=== PATIENT | male | born 1930 ===

== ENCOUNTER 2017-11-20 19:24 | Inpatient (IN) | payer MEDICARE, MEDICAID ==
[2017-11-20 20:15] LABS: VENOUS BLOOD GAS BASE EXCESS 1.9 mmol/L (0.0-2.0); VENOUS BLOOD GAS PCO2 50 mmHg (40-60); VENOUS BLOOD GAS PO2 22 mm/Hg (30-55); VENOUS BLOOD PH 7.36 (7.32-7.43)
[2017-11-20 20:21] LABS: BASO % 0.2 % (0.0-2.0); EOS % 0.1 % (0.0-4.0); HEMOGLOBIN 11.2 g/dL (12.0-18.0); LYMPH # 0.2 K/uL (1.0-4.3); LYMPH % 1.8 % (20.0-40.0); MEAN CORPUSCULAR HEMOGLOBIN 31.9 pg (27.0-31.0); MEAN CORPUSCULAR HGB CONC 33.9 g/dL (33.0-37.0); MEAN PLATELET VOLUME 6.9 fl (7.2-11.7); MONO # 0.5 K/uL (0.0-0.8); NEUT # 11.4 K/uL (1.8-7.0); NEUT % 93.9 % (50.0-75.0); RBC 3.53 Mil/uL (4.40-5.90); RED CELL DISTRIBUTION WIDTH 14.4 % (11.5-14.5)
[2017-11-20 20:29] LABS: WHITE BLOOD COUNT 12.2 K/uL (4.8-10.8)
[2017-11-20 20:30] LABS: MEAN CELL VOLUME 94.1 fl (80.0-94.0); PLATELET COUNT 259 K/uL (130-400)
[2017-11-20 20:31] LABS: ALBUMIN 3.6 g/dL (3.5-5.0); ALT/SGPT 48 U/L (21-72); AST/SGOT 49 U/L (17-59); BLOOD UREA NITROGEN 23 mg/dl (9-20); CALCIUM 9.4 mg/dL (8.4-10.2); GFR AFRICAN-AMERICAN > 60; GFR NON-AFRICAN AMERICAN > 60
[2017-11-20 20:38] LABS: INR 1.1 (0.9-1.2); PARTIAL THROMBOPLASTIN TIME 26.5 Seconds (25.6-37.1); PROTHROMBIN TIME 12.5 Seconds (9.8-13.1)
[2017-11-20 20:42] LABS: B-TYPE NATRIURETIC PEPTIDE 2630 pg/ml (0-900)
[2017-11-20] MEDS ORDERED: Sodium Chloride 0.9% 500 ML IV STA (20:54)
--- NOTE | 2017-11-20 21:17 | ED PDOC ---
HPI: CCC, URI, Sore Throat Time Seen by Provider: 11/20/17 19:28 Chief Complaint (Nursing): Fever Chief Complaint (Provider): Fever, Cough History Per: Family History/Exam Limitations: clinical condition (severe dementia) Onset/Duration Of Symptoms: Other (November 06) Current Symptoms Are (Timing): Still Present Additional History Per: EMS Additional Complaint(s): Kyle is an 87 y/o male who was brought to the ED by his family via EMS for evaluation of a fever and cough. Family states the cough started November 06 and at that time patient presented to [facility] where he was diagnosed with bronchitis and discharged on antibiotics. Since then, he has not gotten better, so he presented to [facility] again and was discharged. Today, he developed a fever. The cough is non-productive but family reports he is very congested. They deny vomiting or diarrhea. Family also reports that patient has had nothing to eat yesterday or today. PMD: Nilay Mackey Past Medical History Reviewed: Historical Data, Nursing Documentation, Vital Signs Vital Signs: Last Vital Signs Temp 98.2 F 11/21/17 11:51 Pulse 77 11/21/17 11:51 Resp 20 11/21/17 11:51 BP 153/80 H 11/21/17 11:51 Pulse Ox 97 11/21/17 11:51 - Medical History PMH: CAD, CHF, Dementia, Depression, Diabetes (Type II), HTN, Hypercholesterolemia Denies: HIV, Chronic Kidney Disease Other PMH: Bed bound for the past 5 years - Surgical History Surgical History: Pacemaker - Family History Family History: States: Unknown Family Hx - Immunization History Hx Tetanus Toxoid Vaccination: No Hx Influenza Vaccination: No Hx Pneumococcal Vaccination: No - Home Medications Home Medications: Ambulatory Orders Medication Instructions Recorded Cilostazol [Pletal] 50 mg PO BID 06/04/15 Clopidogrel [Plavix] 75 mg PO DAILY 06/04/15 Glipizide [Glucotrol] 5 mg PO DAILY 06/04/15 Losartan Potassium 50 mg PO BID 06/04/15 Sitagliptin Phosphate [Januvia] 50 mg PO DAILY 06/04/15 amLODIPine [Norvasc] 2.5 mg PO DAILY 11/06/17 Benzonatate 100 mg PO BID 11/15/17 Rosuvastatin Calcium [Crestor] 10 mg PO HS 11/15/17 rOPINIRole [Requip] 0.25 mg PO DAILY 11/15/17 Olopatadine HCl [Pazeo] 1 drop TOP DAILY 11/20/17 - Allergies Allergies/Adverse Reactions: Allergies Allergy/AdvReac Type Severity Reaction Status Date / Time No Known Allergies Allergy Verified 11/15/17 20:02 Review of Systems ROS Statement: Except As Marked, All Systems Reviewed And Found Negative Constitutional: Positive for: Fever, Other (loss of appetite) ENT: Positive for: Nose Congestion Respiratory: Positive for: Cough Gastrointestinal: Negative for: Vomiting, Diarrhea Physical Exam - Reviewed Nursing Documentation Reviewed: Yes Vital Signs Reviewed: Yes - Physical Exam Appears: Negative for: Well (chronically ill, chachectic) Skin: Negative for: Normal Color (b/l ecchymosis to upper extremities) Eye Exam: Positive for: Other (conjunctival injection, squeezes both eyes shut on attempts to examine) ENT: Positive for: Pharynx Is (clear), Other (tachy mucous membranes) Neck: Positive for: Painless ROM, Supple Cardiovascular/Chest: Positive for: Regular Rate, Rhythm. Negative for: Murmur Respiratory: Positive for: Rhonchi. Negative for: Rales, Respiratory Distress Gastrointestinal/Abdominal: Positive for: Soft. Negative for: Tenderness Back: Positive for: Normal Inspection. Negative for: Decreased ROM Extremity: Positive for: Other (lower legs with chronic ulcerations, very poor muscle bulk, contractures, cool to touch, changes consistent with severe PAD). Negative for: Pedal Edema Lymphatic: Negative for: Adenopathy Neurologic/Psych: Positive for: Other (obtunded, only moans to stimuli). Negative for: Oriented, Motor/Sensory Deficits (no gross motor deficits) Comments: Left Upper Extremity: (+) pitting edema of forearm up to proximal elbow Lower Extremities: Very poor muscle bulk with chronic ulcerations b/l; contractions to b/l feet, b/l ankles; b/l feet cool to touch - Laboratory Results Result Diagrams: 11/21/17 04:25 11/21/17 04:25 - ECG O2 Sat by Pulse Oximetry: 95 (RA) Pulse Ox Interpretation: Normal Medical Decision Making Medical Decision Making: Time: 19:41 Initial Impression: Cough and fever Differentials include bronchitis, viral illness, pneumonia, PE Initial Plan: --Blood Type & Screen --VBG --EKG --BNP --CMP --Magnesium --Phosphorous --Troponin --CBC --PTT --Prothrombin Time --Blood Glucose --Blood Culture --Urine Culture --Urinalysis --Flu Swab --Tylenol Accession No. : [id number] Patient Name / ID : TRISTA COBIAN / [id number] Exam Date : 11/20/2017 21:29:07 ( Approved ) Study Comment : Sex / Age : M / 87Y Creator : Inna Forte Dictator : Professor Of Religious Studies : Broadcast Chief Engineer : Inna Forte Approver2 : Report Date : 11/20/2017 23:37:00 My Comment : [facility] Division of Radiology [address] [place] [address] Tel. no. Patient Name: KYLE WESTON Pt. Address: [address] [place] [address] Rec #: [id number] [place] [address]: Robert MAYEN, Desiree Cardoso Pt CELL Order Location: [facility] : 1930 Male Age: 87 Order #: [id number] Reason for exam: sob CT Scan ANGIO CHEST PE PROTOCOL Exam Date: 11/20/17 This imaging exam was performed at [facility] EXAM: CT Angiography Chest With Intravenous Contrast EXAM DATE/TIME: 11/20/2017 9:12 PM CLINICAL HISTORY: 87 years old, male; Signs and symptoms; Shortness of breath; Prior surgery; Surgery date: 6+ months; Additional info: SOB TECHNIQUE: Axial computed tomographic angiography images of the chest with intravenous contrast using pulmonary embolism protocol. All CT scans at this facility use one or more dose reduction techniques, viz.: automated exposure control; ma/kV adjustment per patient size (including targeted exams where dose is matched to indication; i.e. head); or iterative reconstruction technique. MIP reconstructed images were created and reviewed. Coronal and sagittal reformatted images were created and reviewed. CONTRAST: 60 mL of [id number] administered intravenously. COMPARISON: CR - CHEST PORTABLE 2017-11-20 20:07 FINDINGS: Left-sided dual-lead pacemaker. Left thyroid cyst. No pulmonary embolism. The ascending aorta measures 3.7 cm in diameter and the descending aorta measures 2.7 cm in diameter. No aortic dissection. No pleural or pericardial effussions. There are nodular infiltrates with intermixed consolidation in the lower lungs bilaterally greater on the right. Inflammatory, infectious, and neoplastic etiologies would all be possible. Small mediastinal lymph nodes. Dense calcifications throughout the gallbladder some of which represent gallstones however concurrent calcified bladder wall cannot be excluded. There is bilateral perinephric stranding. There is a 1 cm exophytic right renal cyst. There is a probable subcentimeter exophytic left renal cyst too small to characterize. IMPRESSION: Nodular infiltrates with consolidation in the lower lungs, greater on the right. Inflammatory, infectious, and neoplastic etiologies would all be possible. Dictated By: Inna Forte MD Dictated Date/Time: 11/20/172336 Signed By: Inna Forte MD Date Signed: [id number] Transcribed By: KIESHA Transcribe Date/Time : 11/20/172336 [id number] Novoa for hospitalization for working diagnosis of pneumonia, failed outpatient treatment. AZIRA pt's family findings and plan of care. Scribe Attestation: Documented by Joshua Spears, acting as a scribe for Dr Robert MD Provider Scribe Attestation: All medical record entries made by the Scribe were at my direction and personally dictated by me. I have reviewed the chart and agree that the record accurately reflects my personal performance of the history, physical exam, medical decision making, and the department course for this patient. I have also personally directed, reviewed, and agree with the discharge instructions and disposition. Disposition - Clinical Impression Clinical Impression: Pneumonia Discussed With : Robbi Novoa Doctor Will See Patient In The: ED Counseled Patient/Family Regarding: Studies Performed, Diagnosis - Disposition Disposition Time: 23:30 Condition: GUARDED - Pt Status Changed To: Hospital Disposition Of: Inpatient - Admit Certification Admit to Inpatient:: After my assessment, the patient will require hospitalization for at least two midnights. This is because of the severity of symptoms shown, intensity of services needed, and/or the medical risk in this patient being treated as an outpatient. - POA Present On Arrival: None
[2017-11-20] MEDS ORDERED: Azithromycin 500 MG in Sodium Chloride 0.9% 250 ML IVPB ONE (21:30)
[2017-11-20] MEDS ORDERED: Iodixanol 320 MG/ML 100 ML BOTTLE IV ONE (21:46)
[2017-11-20] MEDS ORDERED: Sodium Chloride 0.9% 100 ML ONE (21:47)
[2017-11-20 22:12] LABS: EOSINOPHIL 1 % (0-7); LYMPHOCYTE 1 % (20-50); MONOCYTE 4 % (0-10); NEUTROPHIL 94 % (42-75); TOTAL CELLS COUNTED 100
[2017-11-20 22:14] LABS: HYPOCHROMIC SLIGHT; TOXIC GRANULATION PRESENT
[2017-11-20 22:15] LABS: PLATELET ESTIMATE NORMAL (NORMAL)
--- NOTE | 2017-11-20 23:37 | CT ---
EXAM: CT Angiography Chest With Intravenous Contrast EXAM DATE/TIME: 11/20/2017 9:12 PM CLINICAL HISTORY: 87 years old, male; Signs and symptoms; Shortness of breath; Prior surgery; Surgery date: 6+ months; Additional info: SOB TECHNIQUE: Axial computed tomographic angiography images of the chest with intravenous contrast using pulmonary embolism protocol. All CT scans at this facility use one or more dose reduction techniques, viz.: automated exposure control; ma/kV adjustment per patient size (including targeted exams where dose is matched to indication; i.e. head); or iterative reconstruction technique. MIP reconstructed images were created and reviewed. Coronal and sagittal reformatted images were created and reviewed. CONTRAST: 60 mL of [id number] administered intravenously. COMPARISON: CR - CHEST PORTABLE 2017-11-20 20:07 FINDINGS: Left-sided dual-lead pacemaker. Left thyroid cyst. No pulmonary embolism. The ascending aorta measures 3.7 cm in diameter and the descending aorta measures 2.7 cm in diameter. No aortic dissection. No pleural or pericardial effussions. There are nodular infiltrates with intermixed consolidation in the lower lungs bilaterally greater on the right. Inflammatory, infectious, and neoplastic etiologies would all be possible. Small mediastinal lymph nodes. Dense calcifications throughout the gallbladder some of which represent gallstones however concurrent calcified bladder wall cannot be excluded. There is bilateral perinephric stranding. There is a 1 cm exophytic right renal cyst. There is a probable subcentimeter exophytic left renal cyst too small to characterize. IMPRESSION: Nodular infiltrates with consolidation in the lower lungs, greater on the right. Inflammatory, infectious, and neoplastic etiologies would all be possible.
[2017-11-20] MEDS ORDERED: cefTRIAXone (Rocephin) 1 gm Inj ONE (23:43)
--- NOTE | 2017-11-20 23:47 | CP.PCM.HP ---
History of Present Illness - History of Present Illness History of Present Illness: CC: Weakness, fever HPI: 87 y/o male with multiple medical conditions including DM2, CAD, CHF who was brought in for fever/RTI symptoms. Apparently cough started on 11/06, and he has gone to [facility] ED where he was seen and dx'ed with bronchitis and given abx. He did not get better, so presented to [facility] again, and was again discharged without any new intervention. Today, per family, he developed fever and worsening congestion, though cough did not become productive. Per family, no n/v/d. Patient does have more anorexia and weakness over last few days. Patient himself provides no history, all history is from family and chart. ROS: Limited review, patient not very verbal MHx: DM2, CAD, CHF, HLD, depression, dementia SHx: s/p PPM Allergies: NKDA Medications: Per med rec Family Hx: No relevant findings Social Hx: Lives with family, no tobacco, no EtOH Surrogate: family members, contact info in chart Present on Admission - Present on Admission Any Indicators Present on Admission: No Past Patient History - Infectious Disease Hx of Infectious Diseases: None - Past Medical History & Family History Past Medical History?: Yes - Past Social History Smoking Status: Former Smoker - CARDIAC Hx Congestive Heart Failure: Yes Hx Hypercholesterolemia: Yes Hx Hypertension: Yes Hx Pacemaker: Yes - PULMONARY Hx Respiratory Disorders: No - NEUROLOGICAL Hx Dementia: Yes - HEENT Hx HEENT Problems: Yes - RENAL Hx Chronic Kidney Disease: No - ENDOCRINE/METABOLIC Hx Endocrine Disorders: Yes Hx Diabetes Mellitus Type 2: Yes - HEMATOLOGICAL/ONCOLOGICAL Hx Human Immunodeficiency Virus (HIV): No - INTEGUMENTARY Hx Dermatological Problems: No Other/Comment: dematitis - MUSCULOSKELETAL/RHEUMATOLOGICAL Hx Falls: Yes Other/Comment: non amb-W/C bound at home x 2yrs - GASTROINTESTINAL Hx Constipation: Yes - GENITOURINARY/GYNECOLOGICAL Hx Genitourinary Disorders: No Hx Incontinence: Yes - PSYCHIATRIC Hx Depression: Yes - SURGICAL HISTORY Hx Surgeries: Yes Other/Comment: Pacemaker insertion - ANESTHESIA Hx Anesthesia: Yes Hx Anesthesia Reactions: No Hx Malignant Hyperthermia: No Meds Allergies/Adverse Reactions: Allergies Allergy/AdvReac Type Severity Reaction Status Date / Time No Known Allergies Allergy Verified 11/15/17 20:02 Physical Exam - Constitutional Additional comments: ill appearing - Head Exam Head Exam: ATRAUMATIC, NORMOCEPHALIC - Eye Exam Eye Exam: EOMI, PERRL - ENT Exam ENT Exam: Mucous Membranes Dry - Neck Exam Neck exam: Positive for: Full Rom - Respiratory Exam Respiratory Exam: Decreased Breath Sounds, Rhonchi - Cardiovascular Exam Cardiovascular Exam: REGULAR RHYTHM, +S1, +S2 - GI/Abdominal Exam GI & Abdominal Exam: Normal Bowel Sounds, Soft - Extremities Exam Extremities exam: Positive for: full ROM, normal inspection - Neurological Exam Additional comments: awake, answers some questions - Skin Skin Exam: Dry, Warm Results - Vital Signs Recent Vital Signs: Last Vital Signs Temp 101 F H 11/20/17 20:47 Pulse 95 H 11/20/17 21:43 Resp 20 11/20/17 21:43 BP 122/85 11/20/17 21:43 Pulse Ox 98 11/20/17 21:43 - Labs Result Diagrams: 11/20/17 20:00 11/20/17 20:00 Labs: Laboratory Results - last 24 hr 11/20/17 11/20/17 11/20/17 19:42 20:00 20:00 WBC 12.2 H D RBC 3.53 L Hgb 11.2 L Hct 33.2 L MCV 94.1 H D MCH 31.9 H MCHC 33.9 RDW 14.4 Plt Count 259 D MPV 6.9 L Neut % (Auto) 93.9 H Lymph % (Auto) 1.8 L [place] % (Auto) 4.0 Eos % (Auto) 0.1 Baso % (Auto) 0.2 Neut # (Auto) 11.4 H Lymph # (Auto) 0.2 L [place] # (Auto) 0.5 Eos # (Auto) 0.0 Baso # (Auto) 0.0 Neutrophils % (Manual) 94 H Lymphocytes % (Manual) 1 L Monocytes % (Manual) 4 Eosinophils % (Manual) 1 Toxic Granulation Present Platelet Estimate Normal Hypochromasia (manual) Slight Macrocytosis (manual) Slight PT INR APTT pO2 VBG pH VBG pCO2 VBG HCO3 VBG Total CO2 VBG O2 Sat (Calc) VBG Base Excess VBG Potassium Glucose Lactate FiO2 Sodium 147 Potassium 4.8 Chloride 106 Carbon Dioxide 24 Anion Gap 22 H BUN 23 H Creatinine 1.1 Est GFR ( Amer) > 60 Est GFR (Non-Af Amer) > 60 POC Glucose (mg/dL) 219 H Random Glucose 218 H Calcium 9.4 Phosphorus 3.0 Magnesium 2.1 Total Bilirubin 0.8 AST 49 ALT 48 Alkaline Phosphatase 107 Troponin I 0.0460 NT-Pro-B Natriuret Pep 2630 H Total Protein 7.1 Albumin 3.6 Globulin 3.6 Albumin/Globulin Ratio 1.0 Venous Blood Potassium Influenza Typ A,B (EIA) Blood Type Antibody Screen BBK History Checked 11/20/17 11/20/17 11/20/17 20:00 20:00 20:09 WBC RBC Hgb Hct MCV MCH MCHC RDW Plt Count MPV Neut % (Auto) Lymph % (Auto) [place] % (Auto) Eos % (Auto) Baso % (Auto) Neut # (Auto) Lymph # (Auto) [place] # (Auto) Eos # (Auto) Baso # (Auto) Neutrophils % (Manual) Lymphocytes % (Manual) Monocytes % (Manual) Eosinophils % (Manual) Toxic Granulation Platelet Estimate Hypochromasia (manual) Macrocytosis (manual) PT 12.5 INR 1.1 APTT 26.5 pO2 22 L VBG pH 7.36 VBG pCO2 50 VBG HCO3 24.7 VBG Total CO2 29.7 H VBG O2 Sat (Calc) 20.9 L VBG Base Excess 1.9 VBG Potassium 4.8 Glucose 238 H Lactate 1.9 FiO2 21.0 Sodium 142.0 Potassium Chloride 106.0 Carbon Dioxide Anion Gap BUN Creatinine Est GFR ( Amer) Est GFR (Non-Af Amer) POC Glucose (mg/dL) Random Glucose Calcium Phosphorus Magnesium Total Bilirubin AST ALT Alkaline Phosphatase Troponin I NT-Pro-B Natriuret Pep Total Protein Albumin Globulin Albumin/Globulin Ratio Venous Blood Potassium 4.8 Influenza Typ A,B (EIA) Blood Type A POSITIVE Antibody Screen Negative BBK History Checked No verified bt 11/20/17 20:20 WBC RBC Hgb Hct MCV MCH MCHC RDW Plt Count MPV Neut % (Auto) Lymph % (Auto) [place] % (Auto) Eos % (Auto) Baso % (Auto) Neut # (Auto) Lymph # (Auto) [place] # (Auto) Eos # (Auto) Baso # (Auto) Neutrophils % (Manual) Lymphocytes % (Manual) Monocytes % (Manual) Eosinophils % (Manual) Toxic Granulation Platelet Estimate Hypochromasia (manual) Macrocytosis (manual) PT INR APTT pO2 VBG pH VBG pCO2 VBG HCO3 VBG Total CO2 VBG O2 Sat (Calc) VBG Base Excess VBG Potassium Glucose Lactate FiO2 Sodium Potassium Chloride Carbon Dioxide Anion Gap BUN Creatinine Est GFR ( Amer) Est GFR (Non-Af Amer) POC Glucose (mg/dL) Random Glucose Calcium Phosphorus Magnesium Total Bilirubin AST ALT Alkaline Phosphatase Troponin I NT-Pro-B Natriuret Pep Total Protein Albumin Globulin Albumin/Globulin Ratio Venous Blood Potassium Influenza Typ A,B (EIA) Negative for flu a/b Blood Type Antibody Screen BBK History Checked - Imaging and Cardiology CT scan - chest Status: Image reviewed by me, Report reviewed by me Assessment & Plan (1) CAP (community acquired pneumonia) Assessment and Plan: 87 y/o male with likely CAP and sepsis, coming with with c/o weakness, cough, fever. 1) CAP/Sepsis/Weakness -Admit tele -Continue ceftriaxone/azithromycin IV -Duonebs -Tylenol for fever -Conservative IVF as necessary only, given CHF history 2) DM2 -DM2 diet -ACHS accucheck -SSI -Resume PO medications when eating normally again 3) DVT PPx -- SQ Lovenox Status: Acute (2) Sepsis Status: Acute (3) Weakness Status: Acute (4) DM2 (diabetes mellitus, type 2) Status: Acute (5) DVT prophylaxis Status: Acute
[2017-11-20] MEDS ORDERED: Albuterol-Ipratrop 3 mg / 0.5 (3 ml) UD INH PRN (23:51)
[2017-11-21 06:22] LABS: BLOOD UREA NITROGEN 21 mg/dl (9-20); CALCIUM 8.7 mg/dL (8.4-10.2); GFR AFRICAN-AMERICAN > 60; GFR NON-AFRICAN AMERICAN > 60
[2017-11-21 07:31] LABS: MEAN CELL VOLUME 95.8 fl (80.0-94.0); MEAN CORPUSCULAR HEMOGLOBIN 33.6 pg (27.0-31.0); MEAN CORPUSCULAR HGB CONC 35.1 g/dL (33.0-37.0); RBC 2.98 Mil/uL (4.40-5.90); RED CELL DISTRIBUTION WIDTH 14.2 % (11.5-14.5); WHITE BLOOD COUNT 10.6 K/uL (4.8-10.8)
--- NOTE | 2017-11-21 07:59 | RAD ---
HISTORY: sob COMPARISON: Portable chest 08/10/2015. FINDINGS: LUNGS: No active pulmonary disease. PLEURA: No significant pleural effusion identified, no pneumothorax apparent. CARDIOVASCULAR: Cardiac size is normal and there is no pulmonary vascular derangement identified. Permanent cardiac pacemaker again identified. OSSEOUS STRUCTURES: No significant abnormalities. VISUALIZED UPPER ABDOMEN: Normal. OTHER FINDINGS: None. IMPRESSION: No interval acute cardiopulmonary disease appreciated. Permanent cardiac pacemaker again identified in situ.
[2017-11-21 08:49] LABS: SQUAMOUS EPITHIAL 3 /hpf (0-5); URINE BACTERIA RARE (<OCC); URINE BILIRUBIN NEGATIVE (NEGATIVE); URINE BLOOD NEGATIVE (NEGATIVE); URINE CLARITY CLOUDY (Clear); URINE COLOR YELLOW (YELLOW); URINE GLUCOSE (UA) NEG (Normal); URINE LEUKOCYTE ESTERASE NEG Leu/uL (Negative); URINE PROTEIN 100 mg/dL (NEGATIVE)
[2017-11-21] MEDS ORDERED: Azithromycin 500 MG in Sodium Chloride 0.9% 250 ML IVPB SCH (09:00)
[2017-11-21] MEDS: Insulin Lispro (humaLOG) 100 Units/ml Inj SC SCH ×4 (09:00→21:06)
--- NOTE | 2017-11-21 09:20 | CARD ---
APPROVED REPORT EKG Measurement Heart [id number] NM [id number] [id number] <Conclusion> Atrial-sensed ventricular-paced rhythm Abnormal ECG baseline artefact
[2017-11-21] MEDS ORDERED: Sodium Chloride 3% for Inhalation 4 ML VIAL.NEB IH PRN (11:41)
[2017-11-21] MEDS ORDERED: Sodium Chloride 0.9% 1,000 ML IV SCH (11:45)
--- NOTE | 2017-11-21 11:48 | CP.PCM.PN ---
Subjective - Date & Time of Evaluation Date of Evaluation: 11/21/17 Time of Evaluation: 11:48 - Subjective Subjective: patient somnolent, breathing comfortably, however with rales on exam 2L NC saturating 98% HD stable NAD Objective - Vital Signs/Intake and Output Vital Signs (last 24 hours): Temp Pulse Resp BP Pulse Ox 98.2 F 80 20 126/73 100 11/21/17 07:59 11/21/17 07:59 11/21/17 07:59 11/21/17 07:59 11/21/17 07:59 General: somnolent, +secretions. HEENT: NCAT, PERRL, EOMI HEART: RRR, S1, S2 no MRG LUNG: rales and rhonchi bilaterally ABD: soft, NT, ND, no mass, no HSM EXT: warm, well perfused NEURO: awake, alert SKIN: warm, dry PSYCH: somonolent - Medications Medications: Current Medications Acetaminophen (Tylenol 325mg Tab) 650 mg PO Q6 PRN PRN Reason: Fever >100.4 F Albuterol/Ipratropium (Duoneb 3 Mg/0.5 Mg (3 Ml) Ud) 3 ml INH RQ3 LEANNE Amlodipine Besylate (Norvasc) 2.5 mg PO DAILY LEANNE Atorvastatin Calcium (Lipitor) 20 mg PO HS LEANNE Benzonatate (Tessalon Perles) 100 mg PO BID LEANNE Cilostazol (Pletal) 50 mg PO BID LEANNE Clopidogrel Bisulfate (Plavix) 75 mg PO DAILY LEANNE Enoxaparin Sodium (Lovenox) 30 mg SC DAILY LEANNE PRN Reason: Protocol Home Med (Olopatadine Hcl [Pazeo]) 1 drop TOP DAILY LEANNE Azithromycin 500 mg/ Sodium (Chloride) 250 mls @ 250 mls/hr IVPB DAILY LEANNE PRN Reason: Protocol Ceftriaxone Sodium 1 gm/ (Sodium Chloride) 100 mls @ 100 mls/hr IVPB DAILY LEANNE PRN Reason: Protocol Sodium Chloride (Sodium Chloride 0.9%) 1,000 mls @ 100 mls/hr IV .Q10H LEANNE Stop: 11/22/17 11:43 Insulin Human Lispro (Humalog) 0 units SC ACHS LEANNE PRN Reason: Protocol Last Admin: 11/21/17 09:03 Dose: Not Given Losartan Potassium (Cozaar) 50 mg PO BID LEANNE Ondansetron HCl (Zofran Inj) 4 mg IVP Q6 PRN PRN Reason: Nausea/Vomiting - Labs Labs: 11/21/17 04:25 11/21/17 04:25 PT 12.5 Seconds (9.8-13.1) 11/20/17 20:00 INR 1.1 (0.9-1.2) 11/20/17 20:00 APTT 26.5 Seconds (25.6-37.1) 11/20/17 20:00 Assessment and Plan - Assessment and Plan (Free Text) Plan: 87 y/o male with multiple medical conditions including DM2, CAD, CHF who was brought in for fever/RTI symptoms. Apparently cough started on 11/06, and he has [facility]. He did not get better, so presented to [facility] again, and was again discharged without any new intervention. Today, per family, he developed fever and worsening congestion, though cough did not become productive. Per family, no n/v/d. Patient does have more anorexia and weakness over last few days. Patient himself provides no history, all history is from family and chart. CAP Sepsis - on 2L NC saturating 98%, somnolent today - failed swallow eval, continue maintenance fluids, monitor for improvement in mentation and reevaluate swallow status -Continue ceftriaxone/azithromycin IV -Duonebs q3 hours -suction secretions, send sputum culture -Tylenol for fever -Conservative IVF DM2 -DM2 diet -ACHS accucheck -SSI -Resume PO medications when eating normally again DVT PPx Lovenox
[2017-11-21] MEDS: Albuterol-Ipratrop 3 mg / 0.5 (3 ml) UD INH SCH ×3 (15:00→20:06)
[2017-11-21] MEDS: Enoxaparin 30 mg Syringe SC SCH (17:50)
[2017-11-21] MEDS: Cilostazol 50 mg Tab UD PO SCH (17:51)
[2017-11-21] MEDS: Sodium Chloride 0.9% 1,000 ML IV SCH (17:53)
[2017-11-21] MEDS ORDERED: Chlorhexidine Gluconate 1 APPL/PKT TP ONE (23:07)
[2017-11-21] MEDS: Azithromycin 500 MG in Sodium Chloride 0.9% 250 ML IVPB SCH (23:21)
[2017-11-22] MEDS: Albuterol-Ipratrop 3 mg / 0.5 (3 ml) UD INH SCH ×4 (01:01→19:13)
[2017-11-22 05:38] LABS: HEMOGLOBIN 9.2 g/dL (12.0-18.0); MEAN CELL VOLUME 94.6 fl (80.0-94.0); MEAN CORPUSCULAR HEMOGLOBIN 32.1 pg (27.0-31.0); MEAN CORPUSCULAR HGB CONC 33.9 g/dL (33.0-37.0); RBC 2.86 Mil/uL (4.40-5.90); RED CELL DISTRIBUTION WIDTH 14.7 % (11.5-14.5); WHITE BLOOD COUNT 8.4 K/uL (4.8-10.8)
[2017-11-22 05:52] LABS: BLOOD UREA NITROGEN 22 mg/dl (9-20); CALCIUM 8.7 mg/dL (8.4-10.2); GFR AFRICAN-AMERICAN > 60; GFR NON-AFRICAN AMERICAN > 60
[2017-11-22] MEDS: Insulin Lispro (humaLOG) 100 Units/ml Inj SC SCH ×4 (06:56→21:47)
[2017-11-22] MEDS: Sodium Chloride 0.9% 1,000 ML IV SCH (06:57)
[2017-11-22] MEDS: Enoxaparin 30 mg Syringe SC SCH (08:48)
[2017-11-22] MEDS: Cilostazol 50 mg Tab UD PO SCH ×2 (08:49→16:22)
--- NOTE | 2017-11-22 11:14 | CP.PCM.PN ---
Subjective - Date & Time of Evaluation Date of Evaluation: 11/22/17 Time of Evaluation: 11:14 - Subjective Subjective: pt more awake than yesterday, becoming mildly more coherent. appears to be responding to abx rx, less secretions than yesterday sputum cx still pending hd stable nad Objective - Vital Signs/Intake and Output Vital Signs (last 24 hours): Temp Pulse Resp BP Pulse Ox 98.3 F 80 20 137/71 100 11/22/17 07:55 11/22/17 07:55 11/22/17 07:55 11/22/17 07:55 11/22/17 07:55 Intake and Output: 11/22/17 11/22/17 06:59 18:59 Intake Total 950 Output Total 600 Balance 350 General: awake, alert HEENT: NCAT, PERRL, EOMI HEART: RRR, S1, S2 no MRG LUNG:+wheezes ABD: soft, NT, ND, no mass, no HSM EXT: warm, well perfused NEURO: awake, alert SKIN: warm, dry PSYCH: normal mood, normal affect - Medications Medications: Current Medications Acetaminophen (Tylenol 325mg Tab) 650 mg PO Q6 PRN PRN Reason: Fever >100.4 F Albuterol/Ipratropium (Duoneb 3 Mg/0.5 Mg (3 Ml) Ud) 3 ml INH RQ6 [facility] Last Admin: 11/22/17 07:35 Dose: 3 ml Amlodipine Besylate (Norvasc) 2.5 mg PO DAILY [facility] Last Admin: 11/22/17 08:48 Dose: Not Given Atorvastatin Calcium (Lipitor) 20 mg PO HS [facility] Last Admin: 11/21/17 21:06 Dose: Not Given Benzonatate (Tessalon Perles) 100 mg PO BID [facility] Last Admin: 11/22/17 08:49 Dose: Not Given Cilostazol (Pletal) 50 mg PO BID [facility] Last Admin: 11/22/17 08:49 Dose: Not Given Clopidogrel Bisulfate (Plavix) 75 mg PO DAILY [facility] Last Admin: 11/22/17 08:49 Dose: Not Given Enoxaparin Sodium (Lovenox) 30 mg SC DAILY [facility] PRN Reason: Protocol Last Admin: 11/22/17 08:48 Dose: 30 mg Home Med (Olopatadine Hcl [Pazeo]) 1 drop TOP DAILY [facility] Sodium Chloride (Sodium Chloride 0.9%) 1,000 mls @ 75 mls/hr IV .[id number] [facility] Stop: 11/22/17 11:43 Last Admin: 11/22/17 06:57 Dose: 75 mls/hr Azithromycin 500 mg/ Sodium (Chloride) 250 mls @ 250 mls/hr IVPB DAILY@2300 [facility] PRN Reason: Protocol Last Admin: 11/21/17 23:21 Dose: 250 mls/hr Ceftriaxone Sodium 1 gm/ (Sodium Chloride) 100 mls @ 100 mls/hr IVPB DAILY@ 2300 [facility] PRN Reason: Protocol Last Admin: 11/21/17 22:30 Dose: 100 mls/hr Insulin Human Lispro (Humalog) 0 units SC ACHS [facility] PRN Reason: Protocol Last Admin: 11/22/17 06:56 Dose: Not Given Losartan Potassium (Cozaar) 50 mg PO BID [facility] Last Admin: 11/22/17 08:47 Dose: Not Given Ondansetron HCl (Zofran Inj) 4 mg IVP Q6 PRN PRN Reason: Nausea/Vomiting - Labs Labs: 11/22/17 04:20 11/22/17 04:20 PT 12.5 Seconds (9.8-13.1) 11/20/17 20:00 INR 1.1 (0.9-1.2) 11/20/17 20:00 APTT 26.5 Seconds (25.6-37.1) 11/20/17 20:00 Assessment and Plan - Assessment and Plan (Free Text) Plan: 87 y/o male with multiple medical conditions including DM2, CAD, CHF who was brought in for fever/RTI symptoms. Apparently cough started on 11/06, and he has gone to [facility] ED where he was seen and dx'ed with bronchitis and given abx. He did not get better, so presented to [facility] again, and was again discharged without any new intervention. Today, per family, he developed fever and worsening congestion, though cough did not become productive. Per family, no n/v/d. Patient does have more anorexia and weakness over last few days. Patient himself provides no history, all history is from family and chart. CAP Sepsis - on 2L NC saturating 98%, more awake than yesterday, however still somnolent. - failed swallow eval, continue maintenance fluids, monitor for improvement in mentation and reevaluate swallow status -Continue ceftriaxone/azithromycin IV -Duonebs q6 hours -suction secretions, send sputum culture pending -Tylenol for fever -Conservative IVF DM2 -DM2 diet -ACHS accucheck -SSI -Resume PO medications when eating normally again DVT PPx Lovenox
[2017-11-22] MEDS: Azithromycin 500 MG in Sodium Chloride 0.9% 250 ML IVPB SCH (23:16)
[2017-11-23] MEDS: Albuterol-Ipratrop 3 mg / 0.5 (3 ml) UD INH SCH ×4 (01:00→19:05)
[2017-11-23 05:51] LABS: HEMOGLOBIN 9.3 g/dL (12.0-18.0); MEAN CELL VOLUME 96.2 fl (80.0-94.0); MEAN CORPUSCULAR HEMOGLOBIN 31.6 pg (27.0-31.0); MEAN CORPUSCULAR HGB CONC 32.8 g/dL (33.0-37.0); RBC 2.95 Mil/uL (4.40-5.90); RED CELL DISTRIBUTION WIDTH 14.8 % (11.5-14.5); WHITE BLOOD COUNT 7.9 K/uL (4.8-10.8)
[2017-11-23 06:04] LABS: BLOOD UREA NITROGEN 20 mg/dl (9-20); CALCIUM 8.4 mg/dL (8.4-10.2); GFR AFRICAN-AMERICAN > 60; GFR NON-AFRICAN AMERICAN > 60
[2017-11-23] MEDS: Insulin Lispro (humaLOG) 100 Units/ml Inj SC SCH ×4 (06:33→21:50)
[2017-11-23] MEDS: Cilostazol 50 mg Tab UD PO SCH ×2 (09:10→19:30)
[2017-11-23] MEDS: Enoxaparin 30 mg Syringe SC SCH (09:12)
--- NOTE | 2017-11-23 09:33 | CP.PCM.PN ---
Subjective - Date & Time of Evaluation Date of Evaluation: 11/23/17 Time of Evaluation: 09:00 - Subjective Subjective: No fever today however temp 99 copious amount of purulent sputum being suctioned + cough Pt is demented and has very minimal verbal output failed swallow eval Family at bedside Daughter Rochelle is surrogate decision maker - discussed Code status - wants Full Code, agrees to PEG if needed also agreed to HARVINDER placement Objective - Vital Signs/Intake and Output Vital Signs (last 24 hours): Temp Pulse Resp BP Pulse Ox 98.5 F 100 H 18 159/62 H 96 11/23/17 07:55 11/23/17 07:55 11/23/17 07:55 11/23/17 09:21 11/23/17 07:55 - Medications Medications: Current Medications Acetaminophen (Tylenol 325mg Tab) 650 mg PO Q6 PRN PRN Reason: Fever >100.4 F Albuterol/Ipratropium (Duoneb 3 Mg/0.5 Mg (3 Ml) Ud) 3 ml INH RQ6 [facility] Last Admin: 11/23/17 07:31 Dose: 3 ml Amlodipine Besylate (Norvasc) 2.5 mg PO DAILY [facility] Last Admin: 11/23/17 09:10 Dose: Not Given Atorvastatin Calcium (Lipitor) 20 mg PO HS [facility] Last Admin: 11/22/17 21:47 Dose: Not Given Benzonatate (Tessalon Perles) 100 mg PO BID [facility] Last Admin: 11/23/17 09:11 Dose: Not Given Cilostazol (Pletal) 50 mg PO BID [facility] Last Admin: 11/23/17 09:10 Dose: Not Given Clopidogrel Bisulfate (Plavix) 75 mg PO DAILY [facility] Last Admin: 11/23/17 09:10 Dose: Not Given Enoxaparin Sodium (Lovenox) 30 mg SC DAILY [facility] PRN Reason: Protocol Last Admin: 11/23/17 09:12 Dose: 30 mg Home Med (Olopatadine Hcl [Pazeo]) 1 drop TOP DAILY [facility] Azithromycin 500 mg/ Sodium (Chloride) 250 mls @ 250 mls/hr IVPB DAILY@2300 [facility] PRN Reason: Protocol Last Admin: 11/22/17 23:16 Dose: 250 mls/hr Ceftriaxone Sodium 1 gm/ (Sodium Chloride) 100 mls @ 100 mls/hr IVPB DAILY@ 2300 [facility] PRN Reason: Protocol Last Admin: 11/22/17 22:14 Dose: 100 mls/hr Insulin Human Lispro (Humalog) 0 units SC ACHS [facility] PRN Reason: Protocol Last Admin: 11/23/17 06:33 Dose: Not Given Losartan Potassium (Cozaar) 50 mg PO BID [facility] Last Admin: 11/23/17 09:10 Dose: Not Given Ondansetron HCl (Zofran Inj) 4 mg IVP Q6 PRN PRN Reason: Nausea/Vomiting - Labs Labs: 11/23/17 04:20 11/23/17 04:20 PT 12.5 Seconds (9.8-13.1) 11/20/17 20:00 INR 1.1 (0.9-1.2) 11/20/17 20:00 APTT 26.5 Seconds (25.6-37.1) 11/20/17 20:00 - Constitutional Appears: Toxic - Head Exam Head Exam: NORMAL INSPECTION, NORMOCEPHALIC - Eye Exam Additional comments: keeps eyes closed all the time - ENT Exam ENT Exam: Mucous Membranes Dry, Normal External Ear Exam - Neck Exam Neck Exam: Full ROM - Respiratory Exam Respiratory Exam: Rales, Rhonchi, NORMAL BREATHING PATTERN - Cardiovascular Exam Cardiovascular Exam: REGULAR RHYTHM, +S1, +S2 Additional comments: left Pacemaker - GI/Abdominal Exam GI & Abdominal Exam: Soft, Normal Bowel Sounds. absent: Tenderness - Extremities Exam Additional comments: chronic stasis skin changes - Neurological Exam Neurological Exam: Awake Additional comments: moves both upper extremities, minimal movement both LE - Psychiatric Exam Psychiatric exam: Flat Affect - Skin Skin Exam: Dry, Normal Color, Warm Assessment and Plan - Assessment and Plan (Free Text) Assessment: 87 y/o male with multiple medical conditions including DM2, CAD, CHF , bed bound x 5 years , who was brought in for fever and cough. Cough started on 11/06 , and he has gone to [facility] ED where he was seen and dx'ed with bronchitis and given abx. He did not get better, so presented to [facility] again, and was again discharged without any new intervention. Today, per family, he developed fever and worsening congestion, though cough did not become productive. Per family, no n/v/d. Patient also has had no PO intake for 2 days and weakness over last few days. Patient himself provides no history, all history is from family and chart. 1. Sepsis sec to Pneumonia likely Bacterial (POA) - on 2L NC saturating 98%, more awake today - failed swallow eval, continue maintenance fluids, monitor for improvement in mentation and reevaluate swallow status -Continue ceftriaxone/azithromycin IV -Duonebs q6 hours -suction secretions, send sputum culture pending -Tylenol for fever -Conservative IVF - Sputum c/s, Mycoplasma, Legionella - Sputum Gram stain : few Gram + cocci in clusters and chains - add IV Vanco 2. Dysphagia ? sec to pt's current infection -Swallow eval - will cont to Speech eval, if no improvement - PEG placement- discussed with daughter - agrees if needed - attempted NGT placement however unable, pt pulling out tube 3. 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 History of Arrhythmia s/p Pacemaker DVT PPx Lovenox
[2017-11-23] MEDS: Olopatadine 0.1% Opht SOLN OU SCH ×2 (10:47→10:48)
[2017-11-23] MEDS ORDERED: Chlorhexidine Gluconate 1 APPL/PKT TP ONE ×3 (11:28→22:03)
[2017-11-23] MEDS: Lactated Ringer's 1,000 ML IV SCH ×2 (13:13→23:46)
[2017-11-23] MEDS: Azithromycin 500 MG in Sodium Chloride 0.9% 250 ML IVPB SCH (23:46)
[2017-11-24] MEDS: Albuterol-Ipratrop 3 mg / 0.5 (3 ml) UD INH SCH ×4 (01:00→19:44)
[2017-11-24 06:42] LABS: BASO % 0.6 % (0.0-2.0); EOS # 0.1 K/uL (0.0-0.7); EOS % 0.8 % (0.0-4.0); LYMPH # 0.5 K/uL (1.0-4.3); LYMPH % 6.1 % (20.0-40.0); MEAN CELL VOLUME 97.3 fl (80.0-94.0); MEAN CORPUSCULAR HEMOGLOBIN 32.1 pg (27.0-31.0); MEAN PLATELET VOLUME 7.8 fl (7.2-11.7); MONO # 0.6 K/uL (0.0-0.8); NEUT # 6.5 K/uL (1.8-7.0); NEUT % 84.5 % (50.0-75.0); NRBC % 0.2 % (0.0-0.0); PLATELET COUNT 241 K/uL (130-400); RED CELL DISTRIBUTION WIDTH 15.3 % (11.5-14.5); WHITE BLOOD COUNT 7.7 K/uL (4.8-10.8)
[2017-11-24 07:44] LABS: ALB/GLOB RATIO 0.9 (1.0-2.1); ALBUMIN 2.6 g/dL (3.5-5.0); ALT/SGPT 28 U/L (21-72); AST/SGOT 41 U/L (17-59); BLOOD UREA NITROGEN 18 mg/dl (9-20); CALCIUM 8.4 mg/dL (8.4-10.2); GFR AFRICAN-AMERICAN > 60; GFR NON-AFRICAN AMERICAN > 60
[2017-11-24 08:08] LABS: FERRITIN 97.1 ng/Ml (17.9-464)
[2017-11-24] MEDS: Insulin Lispro (humaLOG) 100 Units/ml Inj SC SCH ×4 (08:16→22:30)
[2017-11-24] MEDS: Enoxaparin 30 mg Syringe SC SCH (08:21)
[2017-11-24] MEDS: Olopatadine 0.1% Opht SOLN OU SCH (08:22)
--- NOTE | 2017-11-24 09:04 | CP.PCM.PN ---
Subjective - Date & Time of Evaluation Date of Evaluation: 11/24/17 Time of Evaluation: 08:00 - Subjective Subjective: No fever still with copious amount of purulent secretions being suctioned fights and tries to pull suction tube when he is being suctioned Pt is demented , bed bound mumbles incomprehensible words failed Swallow eval again today Objective - Vital Signs/Intake and Output Vital Signs (last 24 hours): Temp Pulse Resp BP Pulse Ox 98.4 F 81 20 154/90 H 100 11/24/17 08:18 11/24/17 08:18 11/24/17 08:18 11/24/17 08:18 11/24/17 08:18 Intake and Output: 11/24/17 11/24/17 06:59 18:59 Intake Total 1150 Output Total 50 Balance 1100 - Medications Medications: Current Medications Acetaminophen (Tylenol 325mg Tab) 650 mg PO Q6 PRN PRN Reason: Fever >100.4 F Albuterol/Ipratropium (Duoneb 3 Mg/0.5 Mg (3 Ml) Ud) 3 ml INH RQ6 [facility] Last Admin: 11/24/17 07:07 Dose: 3 ml Amlodipine Besylate (Norvasc) 2.5 mg PO DAILY [facility] Last Admin: 11/24/17 08:17 Dose: Not Given Atorvastatin Calcium (Lipitor) 20 mg PO HS [facility] Last Admin: 11/23/17 21:49 Dose: Not Given Cilostazol (Pletal) 50 mg PO BID [facility] Last Admin: 11/23/17 19:30 Dose: Not Given Clopidogrel Bisulfate (Plavix) 75 mg PO DAILY [facility] Last Admin: 11/23/17 09:10 Dose: Not Given Enoxaparin Sodium (Lovenox) 30 mg SC DAILY [facility] PRN Reason: Protocol Last Admin: 11/24/17 08:21 Dose: 30 mg Azithromycin 500 mg/ Sodium (Chloride) 250 mls @ 250 mls/hr IVPB DAILY@2300 [facility] PRN Reason: Protocol Last Admin: 11/23/17 23:46 Dose: 250 mls/hr Ceftriaxone Sodium 1 gm/ (Sodium Chloride) 100 mls @ 100 mls/hr IVPB DAILY@ 2300 [facility] PRN Reason: Protocol Last Admin: 11/23/17 22:34 Dose: 100 mls/hr Vancomycin HCl 1 gm/ Sodium (Chloride) 250 mls @ 166.667 mls/hr IVPB DAILY [facility] PRN Reason: Protocol Last Admin: 11/24/17 08:20 Dose: 166.667 mls/hr Potassium Chloride/Dextrose/Sod Cl (Potassium Chl 20 Meq In D5-1/2ns) 1,000 mls @ 100 mls/hr IV .Q10H [facility] Stop: 11/25/17 08:30 Insulin Human Lispro (Humalog) 0 units SC ACHS [facility] PRN Reason: Protocol Last Admin: 11/24/17 08:16 Dose: Not Given Losartan Potassium (Cozaar) 50 mg PO BID [facility] Last Admin: 11/24/17 08:17 Dose: Not Given Olopatadine HCl (Patanol 0.1% Opht Soln) 1 drop OU DAILY [facility] Last Admin: 11/24/17 08:22 Dose: 1 drop Ondansetron HCl (Zofran Inj) 4 mg IVP Q6 PRN PRN Reason: Nausea/Vomiting - Labs Labs: 11/24/17 05:30 11/24/17 06:00 PT 12.5 Seconds (9.8-13.1) 11/20/17 20:00 INR 1.1 (0.9-1.2) 11/20/17 20:00 APTT 26.5 Seconds (25.6-37.1) 11/20/17 20:00 - Constitutional Appears: appears chronically ill - Head Exam Head Exam: NORMAL INSPECTION, NORMOCEPHALIC - Eye Exam Additional comments: keeps eyes closed all the time - ENT Exam ENT Exam: Mucous Membranes Dry, Normal External Ear Exam - Neck Exam Neck Exam: Full ROM - Respiratory Exam Respiratory Exam: Rales, Coarse Rhonchi, NORMAL BREATHING PATTERN - Cardiovascular Exam Cardiovascular Exam: REGULAR RHYTHM, +S1, +S2 Additional comments: left Pacemaker - GI/Abdominal Exam GI & Abdominal Exam: Soft, Normal Bowel Sounds. absent: Tenderness - Extremities Exam Additional comments: chronic stasis skin changes - Neurological Exam Neurological Exam: Awake Additional comments: demented moves both upper extremities, minimal movement both LE - Psychiatric Exam Psychiatric exam: Flat Affect - Skin Skin Exam: Dry, Normal Color, Warm Assessment and Plan - Assessment and Plan (Free Text) Assessment: 87 y/o male with multiple medical conditions including DM2, CAD, CHF , bed bound x 5 years , who was brought in for fever and cough. Cough started on 11/06 , and he has gone to [facility] ED where he was seen and dx'ed with bronchitis and given abx. He did not get better, so presented to [facility] again, and was again discharged without any new intervention. Today, per family, he developed fever and worsening congestion, though cough did not become productive. Per family, no n/v/d. Patient also has had no PO intake for 2 days and weakness over last few days. Patient himself provides no history, all history is from family and chart. 1. Sepsis sec to Pneumonia likely Bacterial (POA) - on 2L NC saturating 98%, more awake today -Continue ceftriaxone/azithromycin IV, added IV Vanco -Pt's still with a lot of purulent secretions on suctioning - Pulm consult -ID consult -Duonebs q6 hours -Tylenol for fever - Mycoplasma Ag , Urine Legionella : pending - Sputum c/s : Staph aureus and Yeast 2. Dysphagia ? sec to pt's current infection -- failed swallow eval, continue maintenance fluids, monitor for improvement in mentation and reevaluate swallow status - discussed possibility of PEG placement with family and they would like to think about it and will let me know - will cont to Speech eval, if no improvement - PEG placement - attempted NGT placement however unable, pt pulling out tube 3. 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 History of Arrhythmia s/p Pacemaker 6. Hypernatremia - changed IVF to D5 1/2 NS 7. HTN - will give IV antihypertensive prn DVT PPx Lovenox
[2017-11-24 10:58] LABS: ANISOCYTOSIS SLIGHT; LYMPHOCYTE 6 % (20-50); MONOCYTE 6 % (0-10); MYELOCYTE 1 % (0-0); NEUTROPHIL 87 % (42-75); PLATELET ESTIMATE NORMAL (NORMAL); TOTAL CELLS COUNTED 100
[2017-11-24 10:59] LABS: BURR CELLS MARKED; HYPOCHROMIC SLIGHT; POLYCHROMIC SLIGHT; SCHISTOCYTES MODERATE
[2017-11-24 11:00] LABS: TOXIC GRANULATION PRESENT
[2017-11-24] MEDS: Potassium Ch 20mEq in D5-1/2NS 1,000 ML IV SCH ×2 (11:03→18:34)
[2017-11-24] MEDS ORDERED: Enoxaparin 30 mg Syringe SC SCH (15:56)
--- NOTE | 2017-11-24 18:53 | CP.PCM.CON ---
History of Present Illness - History of Present Illness History of Present Illness: 87 y/o male with multiple medical conditions including DM2, CAD, CHF who was brought in for fever/RTI symptoms. Apparently cough started on 11/06, and he has gone to [facility] ED where he was seen and dx'ed with bronchitis and given abx. He did not get better, so presented to [facility] again, and was again discharged without any new intervention. Today, per family, he developed fever and worsening congestion, though cough did not become productive. Per family, no n/v/d. Patient does have more anorexia and weakness over last few days. Patient himself provides no history, all history is from family and chart. patient has DTI to sacrum and septic presentation with pneumonia Has not eaten in 1 week and appears dehydrated/ confused / nonverbal ROS: Limited review, patient not very verbal MHx: DM2, CAD, CHF, HLD, depression, dementia SHx: s/p PPM Allergies: NKDA Medications: Per med rec Family Hx: No relevant findings Social Hx: Lives with family, no tobacco, no EtOH Surrogate: family members, contact info in chart Review of Systems - Review of Systems Systems not reviewed;Unavailable: Altered Mental Status Past Patient History - Infectious Disease Hx of Infectious Diseases: None - Past Medical History & Family History Past Medical History?: Yes - Past Social History Smoking Status: Former Smoker - CARDIAC Hx Congestive Heart Failure: Yes Hx Hypercholesterolemia: Yes Hx Hypertension: Yes Hx Pacemaker: Yes - PULMONARY Hx Respiratory Disorders: No - NEUROLOGICAL Hx Dementia: Yes - HEENT Hx HEENT Problems: Yes - RENAL Hx Chronic Kidney Disease: No - ENDOCRINE/METABOLIC Hx Endocrine Disorders: Yes Hx Diabetes Mellitus Type 2: Yes - HEMATOLOGICAL/ONCOLOGICAL Hx Human Immunodeficiency Virus (HIV): No - INTEGUMENTARY Hx Dermatological Problems: No - MUSCULOSKELETAL/RHEUMATOLOGICAL Hx Falls: Yes Other/Comment: non amb-W/C bound at home x 2yrs - GASTROINTESTINAL Hx Constipation: Yes - GENITOURINARY/GYNECOLOGICAL Hx Genitourinary Disorders: No - PSYCHIATRIC Hx Depression: Yes - SURGICAL HISTORY Hx Surgeries: Yes Other/Comment: Pacemaker insertion - ANESTHESIA Hx Anesthesia: Yes Hx Anesthesia Reactions: No Hx Malignant Hyperthermia: No Has any member of the family had a problem w/ anesthesia?: No Meds Allergies/Adverse Reactions: Allergies Allergy/AdvReac Type Severity Reaction Status Date / Time No Known Allergies Allergy Verified 11/15/17 20:02 - Medications Medications: Current Medications Acetaminophen (Tylenol 325mg Tab) 650 mg PO Q6 PRN PRN Reason: Fever >100.4 F Albuterol/Ipratropium (Duoneb 3 Mg/0.5 Mg (3 Ml) Ud) 3 ml INH RQ6 [facility] Last Admin: 11/24/17 13:20 Dose: 3 ml Amlodipine Besylate (Norvasc) 2.5 mg PO DAILY [facility] Last Admin: 11/24/17 08:17 Dose: Not Given Atorvastatin Calcium (Lipitor) 20 mg PO HS [facility] Last Admin: 11/23/17 21:49 Dose: Not Given Cilostazol (Pletal) 50 mg PO BID [facility] Last Admin: 11/23/17 19:30 Dose: Not Given Clopidogrel Bisulfate (Plavix) 75 mg PO DAILY [facility] Last Admin: 11/23/17 09:10 Dose: Not Given Enoxaparin Sodium (Lovenox) 40 mg SC DAILY [facility] PRN Reason: Protocol Azithromycin 500 mg/ Sodium (Chloride) 250 mls @ 250 mls/hr IVPB DAILY@2300 [facility] PRN Reason: Protocol Last Admin: 11/23/17 23:46 Dose: 250 mls/hr Ceftriaxone Sodium 1 gm/ (Sodium Chloride) 100 mls @ 100 mls/hr IVPB DAILY@ 2300 [facility] PRN Reason: Protocol Last Admin: 11/23/17 22:34 Dose: 100 mls/hr Potassium Chloride/Dextrose/Sod Cl (Potassium Chl 20 Meq In D5-1/2ns) 1,000 mls @ 100 mls/hr IV .Q10H [facility] Stop: 11/25/17 13:00 Last Admin: 11/24/17 18:34 Dose: Not Given Vancomycin HCl 1 gm/ Sodium (Chloride) 250 mls @ 166.667 mls/hr IVPB Q12 [facility] PRN Reason: Protocol Insulin Human Lispro (Humalog) 0 units SC ACHS [facility] PRN Reason: Protocol Last Admin: 11/24/17 17:55 Dose: Not Given Losartan Potassium (Cozaar) 50 mg PO BID [facility] Last Admin: 11/24/17 17:55 Dose: Not Given Olopatadine HCl (Patanol 0.1% Opht Soln) 1 drop OU DAILY [facility] Last Admin: 11/24/17 08:22 Dose: 1 drop Ondansetron HCl (Zofran Inj) 4 mg IVP Q6 PRN PRN Reason: Nausea/Vomiting Physical Exam - Constitutional Appears: Confused, Cachectic, Chronically Ill - Head Exam Head Exam: ATRAUMATIC, NORMOCEPHALIC - Eye Exam Eye Exam: PERRL. absent: Scleral icterus - ENT Exam ENT Exam: Mucous Membranes Dry. absent: Mucous Membranes Moist, Normal Oropharynx - Neck Exam Neck exam: Negative for: Lymphadenopathy - Respiratory Exam Respiratory Exam: Decreased Breath Sounds, Rales, Rhonchi - Cardiovascular Exam Cardiovascular Exam: REGULAR RHYTHM, +S1, +S2 - GI/Abdominal Exam GI & Abdominal Exam: Diminished Bowel Sounds, Distended, Soft. absent: Rebound , Rigid, Tenderness - Rectal Exam Rectal Exam: Deferred - Exam Exam: NORMAL INSPECTION - Extremities Exam Extremities exam: Positive for: pedal edema, tenderness, pedal pulses present. Negative for: calf tenderness, normal inspection - Back Exam Back exam: absent: CVA tenderness (L), CVA tenderness (R), paraspinal tenderness - Neurological Exam Neurological exam: Altered - Psychiatric Exam Psychiatric exam: Depressed - Skin Skin Exam: Dry Additional comments: multiple wounds- leg hip sacrum with DTI Results - Vital Signs Recent Vital Signs: Last Vital Signs Temp 98.0 F 11/24/17 16:01 Pulse 111 H 11/24/17 16:01 Resp 20 11/24/17 16:01 BP 148/68 11/24/17 16:01 Pulse Ox 98 11/24/17 16:01 - Labs Result Diagrams: 11/24/17 05:30 11/24/17 06:00 Labs: Laboratory Results - last 24 hr 11/23/17 11/24/17 11/24/17 21:21 05:30 05:50 WBC 7.7 RBC 2.80 L Hgb 9.0 L Hct 27.3 L MCV 97.3 H MCH 32.1 H MCHC 33.0 RDW 15.3 H Plt Count 241 MPV 7.8 Neut % (Auto) 84.5 H Lymph % (Auto) 6.1 L [place] % (Auto) 8.0 Eos % (Auto) 0.8 Baso % (Auto) 0.6 Neut # (Auto) 6.5 Lymph # (Auto) 0.5 L [place] # (Auto) 0.6 Eos # (Auto) 0.1 Baso # (Auto) 0.0 Neutrophils % (Manual) 87 H Lymphocytes % (Manual) 6 L Monocytes % (Manual) 6 Myelocytes % 1 H Toxic Granulation Present Platelet Estimate Normal Polychromasia Slight Hypochromasia (manual) Slight Anisocytosis (manual) Slight Geovanny Cells Marked Schistocytes Moderate Sodium Potassium Chloride Carbon Dioxide Anion Gap BUN Creatinine Est GFR ( Amer) Est GFR (Non-Af Amer) POC Glucose (mg/dL) 117 H 107 Random Glucose Calcium Iron Ferritin Total Bilirubin AST ALT Alkaline Phosphatase Total Protein Albumin Globulin Albumin/Globulin Ratio Vitamin B12 11/24/17 11/24/17 11/24/17 06:00 06:00 11:29 WBC RBC Hgb Hct MCV MCH MCHC RDW Plt Count MPV Neut % (Auto) Lymph % (Auto) [place] % (Auto) Eos % (Auto) Baso % (Auto) Neut # (Auto) Lymph # (Auto) [place] # (Auto) Eos # (Auto) Baso # (Auto) Neutrophils % (Manual) Lymphocytes % (Manual) Monocytes % (Manual) Myelocytes % Toxic Granulation Platelet Estimate Polychromasia Hypochromasia (manual) Anisocytosis (manual) Geovanny Cells Schistocytes Sodium 153 H Potassium 3.4 L Chloride 118 H Carbon Dioxide 21 L Anion Gap 17 BUN 18 Creatinine 0.9 Est GFR ( Amer) > 60 Est GFR (Non-Af Amer) > 60 POC Glucose (mg/dL) 105 Random Glucose 100 Calcium 8.4 Iron 22 L Ferritin 97.1 Total Bilirubin 0.4 AST 41 ALT 28 Alkaline Phosphatase 80 Total Protein 5.6 L Albumin 2.6 L D Globulin 2.9 Albumin/Globulin Ratio 0.9 L Vitamin B12 259 11/24/17 15:55 WBC RBC Hgb Hct MCV MCH MCHC RDW Plt Count MPV Neut % (Auto) Lymph % (Auto) [place] % (Auto) Eos % (Auto) Baso % (Auto) Neut # (Auto) Lymph # (Auto) [place] # (Auto) Eos # (Auto) Baso # (Auto) Neutrophils % (Manual) Lymphocytes % (Manual) Monocytes % (Manual) Myelocytes % Toxic Granulation Platelet Estimate Polychromasia Hypochromasia (manual) Anisocytosis (manual) [place] Cells Schistocytes Sodium Potassium Chloride Carbon Dioxide Anion Gap BUN Creatinine Est GFR ( Amer) Est GFR (Non-Af Amer) POC Glucose (mg/dL) 161 H Random Glucose Calcium Iron Ferritin Total Bilirubin AST ALT Alkaline Phosphatase Total Protein Albumin Globulin Albumin/Globulin Ratio Vitamin B12 Assessment & Plan (1) CAP (community acquired pneumonia) Status: Acute (2) DM2 (diabetes mellitus, type 2) Status: Acute (3) DVT prophylaxis Status: Acute (4) Pneumonia Status: Acute (5) Sepsis Status: Acute (6) Bronchitis Status: Acute (7) CAD (coronary artery disease) Status: Acute (8) Diabetes Status: Acute (9) Pacemaker Status: Acute (10) Weakness Status: Acute - Assessment and Plan (Free Text) Assessment: await cultures and serologies empiric IV antibiotics poor prognosis may benefit from palliative care
--- NOTE | 2017-11-24 23:16 | CP.PCM.CON ---
History of Present Illness - History of Present Illness History of Present Illness: Acute Resp Fail COPD? PNA (r/o Aspiration) Dementia Dysphagia Fomer smoker. NKDA S/ Patient poorly responsive. O/ VSS Head: neg adeno Heart: RRR ns1s2 neg m Lungs Clear to A & P Abdo S, NT pos BS Ext No C,C,E Neuro, Lethargic. Answering with Yes and No. Labs see below. Monitor Serial ABG's. Cont IV Abx and monitor WBC#, Temp, and panculutres. Daily labs. Dysphagia evaluation. May need PEG. Spoke with family about goals of care. Thinking about palliative care after I explained that patient is not doing well, and may need life support if he dcompensates. ID consult. Signing out of case. Please call if further input from Pulmonary is needed. PUD and DVT prophylaxis. Dr. Rae (Cell) [phone] Past Patient History - Infectious Disease Hx of Infectious Diseases: None - Past Medical History & Family History Past Medical History?: Yes - Past Social History Smoking Status: Former Smoker - CARDIAC Hx Congestive Heart Failure: Yes Hx Hypercholesterolemia: Yes Hx Hypertension: Yes Hx Pacemaker: Yes - PULMONARY Hx Respiratory Disorders: No - NEUROLOGICAL Hx Dementia: Yes - HEENT Hx HEENT Problems: Yes - RENAL Hx Chronic Kidney Disease: No - ENDOCRINE/METABOLIC Hx Endocrine Disorders: Yes Hx Diabetes Mellitus Type 2: Yes - HEMATOLOGICAL/ONCOLOGICAL Hx Human Immunodeficiency Virus (HIV): No - INTEGUMENTARY Hx Dermatological Problems: No - MUSCULOSKELETAL/RHEUMATOLOGICAL Hx Falls: Yes Other/Comment: non amb-W/C bound at home x 2yrs - GASTROINTESTINAL Hx Constipation: Yes - GENITOURINARY/GYNECOLOGICAL Hx Genitourinary Disorders: No - PSYCHIATRIC Hx Depression: Yes - SURGICAL HISTORY Hx Surgeries: Yes Other/Comment: Pacemaker insertion - ANESTHESIA Hx Anesthesia: Yes Hx Anesthesia Reactions: No Hx Malignant Hyperthermia: No Has any member of the family had a problem w/ anesthesia?: No Meds Allergies/Adverse Reactions: Allergies Allergy/AdvReac Type Severity Reaction Status Date / Time No Known Allergies Allergy Verified 11/15/17 20:02 - Medications Medications: Current Medications Acetaminophen (Tylenol 325mg Tab) 650 mg PO Q6 PRN PRN Reason: Fever >100.4 F Albuterol/Ipratropium (Duoneb 3 Mg/0.5 Mg (3 Ml) Ud) 3 ml INH RQ6 [facility] Last Admin: 11/24/17 19:44 Dose: 3 ml Amlodipine Besylate (Norvasc) 2.5 mg PO DAILY [facility] Last Admin: 11/24/17 08:17 Dose: Not Given Atorvastatin Calcium (Lipitor) 20 mg PO HS [facility] Last Admin: 11/23/17 21:49 Dose: Not Given Cilostazol (Pletal) 50 mg PO BID [facility] Last Admin: 11/23/17 19:30 Dose: Not Given Clopidogrel Bisulfate (Plavix) 75 mg PO DAILY [facility] Last Admin: 11/23/17 09:10 Dose: Not Given Enoxaparin Sodium (Lovenox) 40 mg SC DAILY [facility] PRN Reason: Protocol Azithromycin 500 mg/ Sodium (Chloride) 250 mls @ 250 mls/hr IVPB DAILY@2300 [facility] PRN Reason: Protocol Last Admin: 11/23/17 23:46 Dose: 250 mls/hr Ceftriaxone Sodium 1 gm/ (Sodium Chloride) 100 mls @ 100 mls/hr IVPB DAILY@ 2300 [facility] PRN Reason: Protocol Last Admin: 11/23/17 22:34 Dose: 100 mls/hr Potassium Chloride/Dextrose/Sod Cl (Potassium Chl 20 Meq In D5-1/2ns) 1,000 mls @ 100 mls/hr IV .Q10H [facility] Stop: 11/25/17 13:00 Last Admin: 11/24/17 18:34 Dose: Not Given Vancomycin HCl 1 gm/ Sodium (Chloride) 250 mls @ 166.667 mls/hr IVPB Q12 [facility] PRN Reason: Protocol Insulin Human Lispro (Humalog) 0 units SC ACHS [facility] PRN Reason: Protocol Last Admin: 11/24/17 17:55 Dose: Not Given Losartan Potassium (Cozaar) 50 mg PO BID [facility] Last Admin: 11/24/17 17:55 Dose: Not Given Olopatadine HCl (Patanol 0.1% Opht Soln) 1 drop OU DAILY [facility] Last Admin: 11/24/17 08:22 Dose: 1 drop Ondansetron HCl (Zofran Inj) 4 mg IVP Q6 PRN PRN Reason: Nausea/Vomiting Results - Vital Signs Recent Vital Signs: Last Vital Signs Temp 98.6 F 11/24/17 18:53 Pulse 75 11/24/17 18:53 Resp 18 11/24/17 18:53 BP 143/78 11/24/17 18:53 Pulse Ox 97 11/24/17 18:53 - Labs Result Diagrams: 11/24/17 05:30 11/24/17 06:00 Labs: Laboratory Results - last 24 hr 11/24/17 11/24/17 11/24/17 05:30 05:50 06:00 WBC 7.7 RBC 2.80 L Hgb 9.0 L Hct 27.3 L MCV 97.3 H MCH 32.1 H MCHC 33.0 RDW 15.3 H Plt Count 241 MPV 7.8 Neut % (Auto) 84.5 H Lymph % (Auto) 6.1 L Baxter % (Auto) 8.0 Eos % (Auto) 0.8 Baso % (Auto) 0.6 Neut # (Auto) 6.5 Lymph # (Auto) 0.5 L Baxter # (Auto) 0.6 Eos # (Auto) 0.1 Baso # (Auto) 0.0 Neutrophils % (Manual) 87 H Lymphocytes % (Manual) 6 L Monocytes % (Manual) 6 Myelocytes % 1 H Toxic Granulation Present Platelet Estimate Normal Polychromasia Slight Hypochromasia (manual) Slight Anisocytosis (manual) Slight [place] Cells Marked Schistocytes Moderate Sodium 153 H Potassium 3.4 L Chloride 118 H Carbon Dioxide 21 L Anion Gap 17 BUN 18 Creatinine 0.9 Est GFR ( Amer) > 60 Est GFR (Non-Af Amer) > 60 POC Glucose (mg/dL) 107 Random Glucose 100 Calcium 8.4 Iron Ferritin 97.1 Total Bilirubin 0.4 AST 41 ALT 28 Alkaline Phosphatase 80 Total Protein 5.6 L Albumin 2.6 L D Globulin 2.9 Albumin/Globulin Ratio 0.9 L Vitamin B12 259 11/24/17 11/24/17 11/24/17 06:00 11:29 15:55 WBC RBC Hgb Hct MCV MCH MCHC RDW Plt Count MPV Neut % (Auto) Lymph % (Auto) Baxter % (Auto) Eos % (Auto) Baso % (Auto) Neut # (Auto) Lymph # (Auto) Baxter # (Auto) Eos # (Auto) Baso # (Auto) Neutrophils % (Manual) Lymphocytes % (Manual) Monocytes % (Manual) Myelocytes % Toxic Granulation Platelet Estimate Polychromasia Hypochromasia (manual) Anisocytosis (manual) Geovanny Cells Schistocytes Sodium Potassium Chloride Carbon Dioxide Anion Gap BUN Creatinine Est GFR ( Amer) Est GFR (Non-Af Amer) POC Glucose (mg/dL) 105 161 H Random Glucose Calcium Iron 22 L Ferritin Total Bilirubin AST ALT Alkaline Phosphatase Total Protein Albumin Globulin Albumin/Globulin Ratio Vitamin B12
[2017-11-25] MEDS: Albuterol-Ipratrop 3 mg / 0.5 (3 ml) UD INH SCH ×4 (02:10→19:02)
[2017-11-25] MEDS: Potassium Ch 20mEq in D5-1/2NS 1,000 ML IV SCH (04:30)
[2017-11-25 07:09] LABS: HEMOGLOBIN 8.4 g/dL (12.0-18.0); MEAN CELL VOLUME 94.5 fl (80.0-94.0); MEAN CORPUSCULAR HEMOGLOBIN 31.6 pg (27.0-31.0); MEAN CORPUSCULAR HGB CONC 33.4 g/dL (33.0-37.0); RBC 2.66 Mil/uL (4.40-5.90); RED CELL DISTRIBUTION WIDTH 15.1 % (11.5-14.5); WHITE BLOOD COUNT 7.1 K/uL (4.8-10.8)
[2017-11-25 07:54] LABS: BLOOD UREA NITROGEN 14 mg/dl (9-20); CALCIUM 8.1 mg/dL (8.4-10.2); GFR AFRICAN-AMERICAN > 60; GFR NON-AFRICAN AMERICAN > 60
[2017-11-25] MEDS: Enoxaparin 40 mg Syringe SC SCH (08:40)
[2017-11-25] MEDS: Olopatadine 0.1% Opht SOLN OU SCH (08:41)
[2017-11-25] MEDS: Insulin Lispro (humaLOG) 100 Units/ml Inj SC SCH ×4 (08:47→22:01)
--- NOTE | 2017-11-25 09:05 | CP.PCM.PN ---
Subjective - Date & Time of Evaluation Date of Evaluation: 11/25/17 Time of Evaluation: 08:45 - Subjective Subjective: Pt has no fever more awake today oriented to person he also stated in [place] " we are starving him" Failed swallow veal multiple times Discussed PEG placement with family and they agree to it Pt observed to be coughing , purulent sputum suctioned Objective - Vital Signs/Intake and Output Vital Signs (last 24 hours): Temp Pulse Resp BP Pulse Ox 98.5 F 92 H 20 136/78 97 11/25/17 08:00 11/25/17 08:00 11/25/17 08:00 11/25/17 08:00 11/25/17 08:00 Intake and Output: 11/25/17 11/25/17 06:59 18:59 Intake Total 300 Output Total 100 Balance 200 - Medications Medications: Current Medications Acetaminophen (Tylenol 325mg Tab) 650 mg PO Q6 PRN PRN Reason: Fever >100.4 F Albuterol/Ipratropium (Duoneb 3 Mg/0.5 Mg (3 Ml) Ud) 3 ml INH RQ6 [facility] Last Admin: 11/25/17 07:34 Dose: 3 ml Amlodipine Besylate (Norvasc) 2.5 mg PO DAILY [facility] Last Admin: 11/24/17 08:17 Dose: Not Given Atorvastatin Calcium (Lipitor) 20 mg PO HS [facility] Last Admin: 11/24/17 22:00 Dose: Not Given Cilostazol (Pletal) 50 mg PO BID [facility] Last Admin: 11/23/17 19:30 Dose: Not Given Clopidogrel Bisulfate (Plavix) 75 mg PO DAILY [facility] Last Admin: 11/23/17 09:10 Dose: Not Given Cyanocobalamin (Vitamin B12 1000 Mcg/Ml Inj) 1,000 mcg IM DAILY [facility] Enoxaparin Sodium (Lovenox) 40 mg SC DAILY [facility] PRN Reason: Protocol Last Admin: 11/25/17 08:40 Dose: 40 mg Ceftriaxone Sodium 1 gm/ (Sodium Chloride) 100 mls @ 100 mls/hr IVPB DAILY@ 2300 [facility] PRN Reason: Protocol Last Admin: 11/24/17 23:30 Dose: 100 mls/hr Vancomycin HCl 1 gm/ Sodium (Chloride) 250 mls @ 166.667 mls/hr IVPB Q12 [facility] PRN Reason: Protocol Last Admin: 11/25/17 08:39 Dose: 166.667 mls/hr Azithromycin 500 mg/ Sodium (Chloride) 250 mls @ 250 mls/hr IVPB DAILY@0400 [facility] PRN Reason: Protocol Iron Sucrose 100 mg/ Sodium (Chloride) 105 mls @ 105 mls/hr IVPB DAILY [facility] Stop: 11/27/17 09:59 Insulin Human Lispro (Humalog) 0 units SC ACHS [facility] PRN Reason: Protocol Last Admin: 11/25/17 08:47 Dose: Not Given Losartan Potassium (Cozaar) 50 mg PO BID [facility] Last Admin: 11/24/17 17:55 Dose: Not Given Olopatadine HCl (Patanol 0.1% Opht Soln) 1 drop OU DAILY [facility] Last Admin: 11/25/17 08:41 Dose: 1 drop Ondansetron HCl (Zofran Inj) 4 mg IVP Q6 PRN PRN Reason: Nausea/Vomiting Pantoprazole Sodium (Protonix Inj) 40 mg IVP DAILY [facility] - Labs Labs: 11/25/17 06:30 11/25/17 06:30 PT 12.5 Seconds (9.8-13.1) 11/20/17 20:00 INR 1.1 (0.9-1.2) 11/20/17 20:00 APTT 26.5 Seconds (25.6-37.1) 11/20/17 20:00 - Constitutional Appears: appears chronically ill - Head Exam Head Exam: NORMAL INSPECTION, NORMOCEPHALIC - Eye Exam Additional comments: keeps eyes closed all the time - ENT Exam ENT Exam: Mucous Membranes Dry, Normal External Ear Exam - Neck Exam Neck Exam: Full ROM - Respiratory Exam Respiratory Exam: Rales, Coarse Rhonchi, NORMAL BREATHING PATTERN - Cardiovascular Exam Cardiovascular Exam: REGULAR RHYTHM, +S1, +S2 Additional comments: left Pacemaker - GI/Abdominal Exam GI & Abdominal Exam: Soft, Normal Bowel Sounds. absent: Tenderness - Extremities Exam Additional comments: chronic stasis skin changes - Neurological Exam Neurological Exam: Awake Additional comments: demented oriented to person moves both upper extremities, minimal movement both LE - Psychiatric Exam Psychiatric exam: Flat Affect - Skin Skin Exam: Dry, Normal Color, Warm Assessment and Plan - Assessment and Plan (Free Text) Assessment: 87 y/o male with multiple medical conditions including DM2, CAD, CHF , bed bound x 5 years , who was brought in for fever and cough. Cough started on 11/06 , and he has gone to [facility] ED where he was seen and dx'ed with bronchitis and given abx. He did not get better, so presented to [facility] again, and was again discharged without any new intervention. Today, per family, he developed fever and worsening congestion, though cough did not become productive. Per family, no n/v/d. Patient also has had no PO intake for 2 days and weakness over last few days. Patient himself provides no history, all history is from family and chart. 1. Sepsis sec to Pneumonia likely Bacterial (POA) , suspected Aspiration PNA - on 2L NC saturating 98%, more awake today -Continue ceftriaxone/azithromycin IV, added IV Vanco -Pt's still with a lot of purulent secretions on suctioning - Pulmonary consulted- Dr Rae, discussed case -ID consulted -Duonebs q6 hours -Tylenol for fever - Mycoplasma Ag , Urine Legionella : pending - Sputum c/s : Staph aureus and Yeast 2. Dysphagia - ? Aspiration - failed multiple swallow eval, Keep NPO, continue maintenance fluids - discussed PEG placement with family , they now agree to the procedure -GI consult: Dr Woodward - attempted NGT placement however unable, pt pulling out tube 3. DM2 -[facility] accucheck -SSI 4. 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 History of Arrhythmia s/p Pacemaker 6. Hypernatremia sec to Dehydration - changed IVF to D5 W with KCl 7. HTN - will give IV antihypertensive prn 8. Anemia likely chronic and dilutional from IVF will monitor no signs of active bleeding started on PPI DVT PPx Lovenox
--- NOTE | 2017-11-25 09:19 | RAD ---
HISTORY: pneumonia COMPARISON: Chest radiograph dated 11/20/2017. FINDINGS: LUNGS: Pulmonary vascular congestion. Bibasilar atelectasis versus infiltrates. PLEURA: New small bilateral pleural effusions. No pneumothorax apparent. CARDIOVASCULAR: Left subclavian access pacemaker redemonstrated. Atherosclerotic aortic calcifications. Cardiomediastinal silhouette unchanged. OSSEOUS STRUCTURES: Unchanged. VISUALIZED UPPER ABDOMEN: Normal. OTHER FINDINGS: None. IMPRESSION: Pulmonary vascular congestion small bilateral pleural effusions with new bibasilar atelectasis versus infiltrates.
--- NOTE | 2017-11-25 12:22 | CP.PCM.PN ---
Subjective - Date & Time of Evaluation Date of Evaluation: 11/25/17 Time of Evaluation: 08:00 - Subjective Subjective: more awake very weak and debilitated IV rx in progress Objective - Vital Signs/Intake and Output Vital Signs (last 24 hours): Temp Pulse Resp BP Pulse Ox 97.7 F 92 H 20 136/78 100 11/25/17 11:55 11/25/17 12:12 11/25/17 11:55 11/25/17 12:12 11/25/17 11:55 Intake and Output: 11/25/17 11/25/17 06:59 18:59 Intake Total 300 Output Total 100 Balance 200 - Medications Medications: Current Medications Acetaminophen (Tylenol 325mg Tab) 650 mg PO Q6 PRN PRN Reason: Fever >100.4 F Albuterol/Ipratropium (Duoneb 3 Mg/0.5 Mg (3 Ml) Ud) 3 ml INH RQ6 [facility] Last Admin: 11/25/17 07:34 Dose: 3 ml Amlodipine Besylate (Norvasc) 2.5 mg PO DAILY [facility] Last Admin: 11/25/17 12:12 Dose: Not Given Atorvastatin Calcium (Lipitor) 20 mg PO HS [facility] Last Admin: 11/24/17 22:00 Dose: Not Given Cilostazol (Pletal) 50 mg PO BID [facility] Last Admin: 11/23/17 19:30 Dose: Not Given Clopidogrel Bisulfate (Plavix) 75 mg PO DAILY [facility] Last Admin: 11/23/17 09:10 Dose: Not Given Cyanocobalamin (Vitamin B12 1000 Mcg/Ml Inj) 1,000 mcg IM DAILY [facility] Last Admin: 11/25/17 12:05 Dose: 1,000 mcg Enoxaparin Sodium (Lovenox) 40 mg SC DAILY [facility] PRN Reason: Protocol Last Admin: 11/25/17 08:40 Dose: 40 mg Ceftriaxone Sodium 1 gm/ (Sodium Chloride) 100 mls @ 100 mls/hr IVPB DAILY@ 2300 [facility] PRN Reason: Protocol Last Admin: 11/24/17 23:30 Dose: 100 mls/hr Vancomycin HCl 1 gm/ Sodium (Chloride) 250 mls @ 166.667 mls/hr IVPB Q12 [facility] PRN Reason: Protocol Last Admin: 11/25/17 08:39 Dose: 166.667 mls/hr Azithromycin 500 mg/ Sodium (Chloride) 250 mls @ 250 mls/hr IVPB DAILY@0400 [facility] PRN Reason: Protocol Iron Sucrose 100 mg/ Sodium (Chloride) 105 mls @ 105 mls/hr IVPB DAILY [facility] Stop: 11/27/17 09:59 Last Admin: 11/25/17 12:06 Dose: 105 mls/hr Potassium Chloride/Dextrose (Potassium Chl 20 Meq In D5w) 1,000 mls @ 100 mls/ hr IV .Q10H [facility] Stop: 11/26/17 09:18 Insulin Human Lispro (Humalog) 0 units SC ACHS [facility] PRN Reason: Protocol Last Admin: 11/25/17 12:11 Dose: 1 u Losartan Potassium (Cozaar) 50 mg PO BID [facility] Last Admin: 11/25/17 12:11 Dose: Not Given Olopatadine HCl (Patanol 0.1% Opht Soln) 1 drop OU DAILY [facility] Last Admin: 11/25/17 08:41 Dose: 1 drop Ondansetron HCl (Zofran Inj) 4 mg IVP Q6 PRN PRN Reason: Nausea/Vomiting Pantoprazole Sodium (Protonix Inj) 40 mg IVP DAILY [facility] Last Admin: 11/25/17 12:04 Dose: 40 mg - Labs Labs: 11/25/17 06:30 11/25/17 06:30 PT 12.5 Seconds (9.8-13.1) 11/20/17 20:00 INR 1.1 (0.9-1.2) 11/20/17 20:00 APTT 26.5 Seconds (25.6-37.1) 11/20/17 20:00 - Constitutional Appears: Non-toxic, Cachectic, Chronically Ill - Head Exam Head Exam: NORMOCEPHALIC - Eye Exam Eye Exam: PERRL. absent: Scleral icterus - ENT Exam ENT Exam: Mucous Membranes Dry - Neck Exam Neck Exam: absent: Lymphadenopathy - Respiratory Exam Respiratory Exam: Decreased Breath Sounds - Cardiovascular Exam Cardiovascular Exam: REGULAR RHYTHM - GI/Abdominal Exam GI & Abdominal Exam: Distended, Soft - Rectal Exam Rectal Exam: Deferred - Exam Exam: NORMAL INSPECTION Assessment and Plan (1) CAP (community acquired pneumonia) Status: Acute (2) DM2 (diabetes mellitus, type 2) Status: Acute (3) DVT prophylaxis Status: Acute (4) Pneumonia Status: Acute (5) Sepsis Status: Acute (6) Bronchitis Status: Acute (7) CAD (coronary artery disease) Status: Acute (8) Diabetes Status: Acute (9) Pacemaker Status: Acute (10) Weakness Status: Acute
--- NOTE | 2017-11-25 14:21 | CP.PCM.CON ---
<Tania Vargas - Last Filed: 11/25/17 14:24> History of Present Illness - History of Present Illness History of Present Illness: GI Fellow PGY 4 Consult Note This is a 87 y/o male with pmhx of DM2, CAD, CHF who was brought in for fever and URI symptoms. Pt was being treated for bronchitis and during the hospital course patient became more weak and was not eating. GI was consulted for PEG placement after failing swallow evaluation. Patient himself provides no history , all history is from family and chart. Family is agreeable for PEG. ROS: unable to be obtained patient not very verbal PMHx: As stated in HPI SHx: s/p PPM Family Hx: unable to be obtained patient not very verbal Social Hx: Lives with family, no tobacco, no EtOH Past Patient History - Infectious Disease Hx of Infectious Diseases: None - Past Medical History & Family History Past Medical History?: Yes - Past Social History Smoking Status: Former Smoker - CARDIAC Hx Congestive Heart Failure: Yes Hx Hypercholesterolemia: Yes Hx Hypertension: Yes Hx Pacemaker: Yes - PULMONARY Hx Respiratory Disorders: No - NEUROLOGICAL Hx Dementia: Yes - HEENT Hx HEENT Problems: Yes - RENAL Hx Chronic Kidney Disease: No - ENDOCRINE/METABOLIC Hx Endocrine Disorders: Yes Hx Diabetes Mellitus Type 2: Yes - HEMATOLOGICAL/ONCOLOGICAL Hx Human Immunodeficiency Virus (HIV): No - INTEGUMENTARY Hx Dermatological Problems: No - MUSCULOSKELETAL/RHEUMATOLOGICAL Hx Falls: Yes Other/Comment: non amb-W/C bound at home x 2yrs - GASTROINTESTINAL Hx Constipation: Yes - GENITOURINARY/GYNECOLOGICAL Hx Genitourinary Disorders: No - PSYCHIATRIC Hx Depression: Yes - SURGICAL HISTORY Hx Surgeries: Yes Other/Comment: Pacemaker insertion - ANESTHESIA Hx Anesthesia: Yes Hx Anesthesia Reactions: No Hx Malignant Hyperthermia: No Has any member of the family had a problem w/ anesthesia?: No Meds Allergies/Adverse Reactions: Allergies Allergy/AdvReac Type Severity Reaction Status Date / Time No Known Allergies Allergy Verified 11/15/17 20:02 - Medications Medications: Current Medications Acetaminophen (Tylenol 325mg Tab) 650 mg PO Q6 PRN PRN Reason: Fever >100.4 F Albuterol/Ipratropium (Duoneb 3 Mg/0.5 Mg (3 Ml) Ud) 3 ml INH RQ6 [facility] Last Admin: 11/25/17 13:49 Dose: 3 ml Amlodipine Besylate (Norvasc) 2.5 mg PO DAILY [facility] Last Admin: 11/25/17 12:12 Dose: Not Given Atorvastatin Calcium (Lipitor) 20 mg PO HS [facility] Last Admin: 11/24/17 22:00 Dose: Not Given Cilostazol (Pletal) 50 mg PO BID [facility] Last Admin: 11/23/17 19:30 Dose: Not Given Clopidogrel Bisulfate (Plavix) 75 mg PO DAILY [facility] Last Admin: 11/23/17 09:10 Dose: Not Given Cyanocobalamin (Vitamin B12 1000 Mcg/Ml Inj) 1,000 mcg IM DAILY [facility] Last Admin: 11/25/17 12:05 Dose: 1,000 mcg Enoxaparin Sodium (Lovenox) 40 mg SC DAILY [facility] PRN Reason: Protocol Last Admin: 11/25/17 08:40 Dose: 40 mg Ceftriaxone Sodium 1 gm/ (Sodium Chloride) 100 mls @ 100 mls/hr IVPB DAILY@ 2300 [facility] PRN Reason: Protocol Last Admin: 11/24/17 23:30 Dose: 100 mls/hr Azithromycin 500 mg/ Sodium (Chloride) 250 mls @ 250 mls/hr IVPB DAILY@0400 [facility] PRN Reason: Protocol Iron Sucrose 100 mg/ Sodium (Chloride) 105 mls @ 105 mls/hr IVPB DAILY [facility] Stop: 11/27/17 09:59 Last Admin: 11/25/17 12:06 Dose: 105 mls/hr Potassium Chloride/Dextrose (Potassium Chl 20 Meq In D5w) 1,000 mls @ 100 mls/ hr IV .Q10H [facility] Stop: 11/26/17 09:18 Vancomycin HCl 1,000 mg/ (Sodium Chloride) 250 mls @ 166.667 mls/hr IVPB Q24H [facility] PRN Reason: Protocol Insulin Human Lispro (Humalog) 0 units SC ACHS [facility] PRN Reason: Protocol Last Admin: 11/25/17 12:11 Dose: 1 u Losartan Potassium (Cozaar) 50 mg PO BID [facility] Last Admin: 11/25/17 12:11 Dose: Not Given Olopatadine HCl (Patanol 0.1% Opht Soln) 1 drop OU DAILY [facility] Last Admin: 11/25/17 08:41 Dose: 1 drop Ondansetron HCl (Zofran Inj) 4 mg IVP Q6 PRN PRN Reason: Nausea/Vomiting Pantoprazole Sodium (Protonix Inj) 40 mg IVP DAILY [facility] Last Admin: 11/25/17 12:04 Dose: 40 mg Physical Exam - Constitutional Appears: Non-toxic, Older Than Stated Age, Cachectic, Chronically Ill - Head Exam Head Exam: ATRAUMATIC, NORMAL INSPECTION, NORMOCEPHALIC - Eye Exam Eye Exam: EOMI, Normal appearance, PERRL - ENT Exam ENT Exam: Mucous Membranes Dry - Respiratory Exam Respiratory Exam: Rhonchi - Cardiovascular Exam Cardiovascular Exam: REGULAR RHYTHM - GI/Abdominal Exam GI & Abdominal Exam: Normal Bowel Sounds, Soft. absent: Distended, Organomegaly , Tenderness - Rectal Exam Rectal Exam: Deferred - Extremities Exam Extremities exam: Positive for: normal inspection. Negative for: pedal edema - Psychiatric Exam Psychiatric exam: Flat Affect - Skin Skin Exam: Dry, Intact, Normal Color, Warm Results - Vital Signs Recent Vital Signs: Last Vital Signs Temp 97.7 F 11/25/17 11:55 Pulse 92 H 11/25/17 12:12 Resp 20 11/25/17 11:55 BP 136/78 11/25/17 12:12 Pulse Ox 100 11/25/17 11:55 - Labs Result Diagrams: 11/25/17 06:30 11/25/17 06:30 Labs: Laboratory Results - last 24 hr 11/24/17 11/24/17 11/25/17 15:55 21:17 05:07 WBC RBC Hgb Hct MCV MCH MCHC RDW Plt Count Sodium Potassium Chloride Carbon Dioxide Anion Gap BUN Creatinine Est GFR ( Amer) Est GFR (Non-Af Amer) POC Glucose (mg/dL) 161 H 181 H 177 H Random Glucose Calcium Vancomycin Trough 11/25/17 11/25/17 11/25/17 06:30 06:30 06:30 WBC 7.1 RBC 2.66 L Hgb 8.4 L Hct 25.1 L MCV 94.5 H D MCH 31.6 H MCHC 33.4 RDW 15.1 H Plt Count 221 Sodium 154 H Potassium 3.4 L Chloride 118 H Carbon Dioxide 21 L Anion Gap 18 BUN 14 Creatinine 0.9 Est GFR ( Amer) > 60 Est GFR (Non-Af Amer) > 60 POC Glucose (mg/dL) Random Glucose 150 H Calcium 8.1 L Vancomycin Trough 20.6 H 04/27/18 10:30 WBC RBC Hgb Hct MCV MCH MCHC RDW Plt Count Sodium Potassium Chloride Carbon Dioxide Anion Gap BUN Creatinine Est GFR ( Amer) Est GFR (Non-Af Amer) POC Glucose (mg/dL) 168 H Random Glucose Calcium Vancomycin Trough Assessment & Plan - Assessment and Plan (Free Text) Assessment: This is a 87yM admitted for bronchitis. 1. Aspiration PNA 2. Dysphagia 3. Failure to thrive/malnutrition Plan: -Continue supportive care -Pulmonary care, aspiration precautions -IV abx per ID -Plan for PEG on Tuesday, discussed with family at bedside who is agreeable <Brian Woodward - Last Filed: 11/25/17 19:44> Meds - Medications Medications: Current Medications Acetaminophen (Tylenol 325mg Tab) 650 mg PO Q6 PRN PRN Reason: Fever >100.4 F Albuterol/Ipratropium (Duoneb 3 Mg/0.5 Mg (3 Ml) Ud) 3 ml INH RQ6 [facility] Last Admin: 11/25/17 19:02 Dose: 3 ml Amlodipine Besylate (Norvasc) 2.5 mg PO DAILY [facility] Last Admin: 11/25/17 12:12 Dose: Not Given Atorvastatin Calcium (Lipitor) 20 mg PO HS [facility] Last Admin: 11/24/17 22:00 Dose: Not Given Cilostazol (Pletal) 50 mg PO BID [facility] Last Admin: 11/23/17 19:30 Dose: Not Given Clopidogrel Bisulfate (Plavix) 75 mg PO DAILY [facility] Last Admin: 11/23/17 09:10 Dose: Not Given Cyanocobalamin (Vitamin B12 1000 Mcg/Ml Inj) 1,000 mcg IM DAILY [facility] Last Admin: 11/25/17 12:05 Dose: 1,000 mcg Enoxaparin Sodium (Lovenox) 40 mg SC DAILY [facility] PRN Reason: Protocol Last Admin: 11/25/17 08:40 Dose: 40 mg Hydralazine HCl (Apresoline) 10 mg IV Q6 PRN PRN Reason: Systolic Blood Pressure Ceftriaxone Sodium 1 gm/ (Sodium Chloride) 100 mls @ 100 mls/hr IVPB DAILY@ 2300 [facility] PRN Reason: Protocol Last Admin: 11/24/17 23:30 Dose: 100 mls/hr Azithromycin 500 mg/ Sodium (Chloride) 250 mls @ 250 mls/hr IVPB DAILY@0400 [facility] PRN Reason: Protocol Iron Sucrose 100 mg/ Sodium (Chloride) 105 mls @ 105 mls/hr IVPB DAILY [facility] Stop: 11/27/17 09:59 Last Admin: 11/25/17 12:06 Dose: 105 mls/hr Potassium Chloride/Dextrose (Potassium Chl 20 Meq In D5w) 1,000 mls @ 100 mls/ hr IV .Q10H [facility] Stop: 11/26/17 09:18 Last Admin: 11/25/17 14:37 Dose: 100 mls/hr Vancomycin HCl 1,000 mg/ (Sodium Chloride) 250 mls @ 166.667 mls/hr IVPB Q24H [facility] PRN Reason: Protocol Insulin Human Lispro (Humalog) 0 units SC ACHS [facility] PRN Reason: Protocol Last Admin: 11/25/17 17:21 Dose: 1 u Losartan Potassium (Cozaar) 50 mg PO BID [facility] Last Admin: 11/25/17 17:13 Dose: Not Given Olopatadine HCl (Patanol 0.1% Opht Soln) 1 drop OU DAILY [facility] Last Admin: 11/25/17 08:41 Dose: 1 drop Ondansetron HCl (Zofran Inj) 4 mg IVP Q6 PRN PRN Reason: Nausea/Vomiting Pantoprazole Sodium (Protonix Inj) 40 mg IVP DAILY [facility] Last Admin: 11/25/17 12:04 Dose: 40 mg Results - Vital Signs Recent Vital Signs: Last Vital Signs Temp 98.4 F 11/25/17 16:14 Pulse 89 11/25/17 17:13 Resp 20 11/25/17 16:14 BP 160/76 H 11/25/17 17:13 Pulse Ox 96 11/25/17 16:14 - Labs Result Diagrams: 11/25/17 06:30 11/25/17 06:30 Labs: Laboratory Results - last 24 hr 11/24/17 11/25/17 11/25/17 21:17 05:07 06:30 WBC 7.1 RBC 2.66 L Hgb 8.4 L Hct 25.1 L MCV 94.5 H D MCH 31.6 H MCHC 33.4 RDW 15.1 H Plt Count 221 pCO2 pO2 HCO3 ABG pH ABG Total CO2 ABG O2 Saturation ABG O2 Content ABG Base Excess ABG Hemoglobin ABG Carboxyhemoglobin POC ABG HHb (Measured) ABG Methemoglobin ABG O2 Capacity Chung Test A-a O2 Difference Hgb O2 Saturation Liter Flow Vent Mode FiO2 Sodium Potassium Chloride Carbon Dioxide Anion Gap BUN Creatinine Est GFR ( Amer) Est GFR (Non-Af Amer) POC Glucose (mg/dL) 181 H 177 H Random Glucose Calcium Vancomycin Trough 11/25/17 11/25/17 11/25/17 06:30 06:30 09:16 WBC RBC Hgb Hct MCV MCH MCHC RDW Plt Count pCO2 36 pO2 102 H HCO3 24.2 ABG pH 7.42 ABG Total CO2 24.5 ABG O2 Saturation 100.0 H ABG O2 Content 12.3 L ABG Base Excess -0.9 ABG Hemoglobin 8.9 L ABG Carboxyhemoglobin 1.5 POC ABG HHb (Measured) 0.0 ABG Methemoglobin 1.2 ABG O2 Capacity 12.3 L Chung Test Yes A-a O2 Difference 81.0 Hgb O2 Saturation 97.2 Liter Flow 3 Vent Mode Nc FiO2 32.0 Sodium 154 H Potassium 3.4 L Chloride 118 H Carbon Dioxide 21 L Anion Gap 18 BUN 14 Creatinine 0.9 Est GFR ( Amer) > 60 Est GFR (Non-Af Amer) > 60 POC Glucose (mg/dL) Random Glucose 150 H Calcium 8.1 L Vancomycin Trough 20.6 H 11/25/17 10:30 WBC RBC Hgb Hct MCV MCH MCHC RDW Plt Count pCO2 pO2 HCO3 ABG pH ABG Total CO2 ABG O2 Saturation ABG O2 Content ABG Base Excess ABG Hemoglobin ABG Carboxyhemoglobin POC ABG HHb (Measured) ABG Methemoglobin ABG O2 Capacity Chung Test A-a O2 Difference Hgb O2 Saturation Liter Flow Vent Mode FiO2 Sodium Potassium Chloride Carbon Dioxide Anion Gap BUN Creatinine Est GFR ( Amer) Est GFR (Non-Af Amer) POC Glucose (mg/dL) 168 H Random Glucose Calcium Vancomycin Trough Attending/Attestation - Attestation I have personally seen and examined this patient.: Yes I have fully participated in the care of the patient.: Yes I have reviewed all pertinent clinical information: Yes Notes (Text): 11/25/17 19:43 87 year old male with h/o copd, pna, failure to thrive, consulted for peg. Will tenatively plan for tuesday, optimize respiratory status in the interim.
[2017-11-25] MEDS: Potassium Chl 20mEq & D5W 1,000 ML IV SCH (14:37)
[2017-11-25 15:13] LABS: ABG ALLEN TEST YES; ARTERIAL BLOOD GAS HCO3 24.2 mmol/L (21-28); ARTERIAL BLOOD GAS HEMOGLOBIN 8.9 g/dL (11.7-17.4); ARTERIAL BLOOD GAS O2 CAPACITY 12.3 mL/dL (16-24); ARTERIAL BLOOD GAS O2 CONTENT 12.3 ML/dL (15-23); ARTERIAL BLOOD GAS PCO2 36 mm/Hg (35-45); ARTERIAL BLOOD GAS PH 7.42 (7.35-7.45); ARTERIAL BLOOD GAS PO2 102 mm/Hg (80-100); ARTERIAL BLOOD GAS TCO2 24.5 mmol/L (22-28)
[2017-11-25] MEDS ORDERED: Enalaprilat 2.5 MG/2 ML IVP STA (17:13)
[2017-11-25] MEDS ORDERED: EnalaprilAT 1.25 mg/ml Inj ONE (17:56)
--- NOTE | 2017-11-25 23:24 | CP.PCM.PN ---
Subjective - Subjective Subjective: Acute Resp Fail COPD? PNA (r/o Aspiration) Dementia Dysphagia Fomer smoker. NKDA S/ Patient more responsive today. O/ VSS Head: neg adeno Heart: RRR ns1s2 neg m Lungs Clear to A & P Abdo S, NT pos BS Ext No C,C,E Neuro, Lethargic. Answering with Yes and No. Labs see below. Monitor Serial ABG's. Cont IV Abx and monitor WBC#, Temp, and panculutres. Daily labs. Full Code for now. Repeat X-ray on Tuesday. Please reconsult if it shows worsening or little improvement. Signing out of case. Please call if further input from Pulmonary is needed. PUD and DVT prophylaxis. Objective - Vital Signs/Intake and Output Vital Signs (last 24 hours): Temp Pulse Resp BP Pulse Ox 98.3 F 80 20 178/50 H 96 11/25/17 19:55 11/25/17 19:55 11/25/17 19:55 11/25/17 19:55 11/25/17 19:55 Intake and Output: 11/25/17 11/26/17 18:59 06:59 Intake Total 600 Output Total 300 Balance 300 - Medications Medications: Current Medications Acetaminophen (Tylenol 325mg Tab) 650 mg PO Q6 PRN PRN Reason: Fever >100.4 F Albuterol/Ipratropium (Duoneb 3 Mg/0.5 Mg (3 Ml) Ud) 3 ml INH RQ6 [facility] Last Admin: 11/25/17 19:02 Dose: 3 ml Amlodipine Besylate (Norvasc) 2.5 mg PO DAILY [facility] Last Admin: 11/25/17 12:12 Dose: Not Given Atorvastatin Calcium (Lipitor) 20 mg PO HS [facility] Last Admin: 11/25/17 22:01 Dose: Not Given Cilostazol (Pletal) 50 mg PO BID [facility] Last Admin: 11/23/17 19:30 Dose: Not Given Clopidogrel Bisulfate (Plavix) 75 mg PO DAILY [facility] Last Admin: 11/23/17 09:10 Dose: Not Given Cyanocobalamin (Vitamin B12 1000 Mcg/Ml Inj) 1,000 mcg IM DAILY [facility] Last Admin: 11/25/17 12:05 Dose: 1,000 mcg Enoxaparin Sodium (Lovenox) 40 mg SC DAILY [facility] PRN Reason: Protocol Last Admin: 11/25/17 08:40 Dose: 40 mg Hydralazine HCl (Apresoline) 10 mg IV Q6 PRN PRN Reason: Systolic Blood Pressure Ceftriaxone Sodium 1 gm/ (Sodium Chloride) 100 mls @ 100 mls/hr IVPB DAILY@ 2300 [facility] PRN Reason: Protocol Last Admin: 11/25/17 22:42 Dose: 100 mls/hr Azithromycin 500 mg/ Sodium (Chloride) 250 mls @ 250 mls/hr IVPB DAILY@0400 [facility] PRN Reason: Protocol Iron Sucrose 100 mg/ Sodium (Chloride) 105 mls @ 105 mls/hr IVPB DAILY [facility] Stop: 11/27/17 09:59 Last Admin: 11/25/17 12:06 Dose: 105 mls/hr Potassium Chloride/Dextrose (Potassium Chl 20 Meq In D5w) 1,000 mls @ 100 mls/ hr IV .Q10H [facility] Stop: 11/26/17 09:18 Last Admin: 11/25/17 14:37 Dose: 100 mls/hr Vancomycin HCl 1,000 mg/ (Sodium Chloride) 250 mls @ 166.667 mls/hr IVPB Q24H [facility] PRN Reason: Protocol Insulin Human Lispro (Humalog) 0 units SC ACHS [facility] PRN Reason: Protocol Last Admin: 11/25/17 22:01 Dose: Not Given Losartan Potassium (Cozaar) 50 mg PO BID [facility] Last Admin: 11/25/17 17:13 Dose: Not Given Olopatadine HCl (Patanol 0.1% Opht Soln) 1 drop OU DAILY [facility] Last Admin: 11/25/17 08:41 Dose: 1 drop Ondansetron HCl (Zofran Inj) 4 mg IVP Q6 PRN PRN Reason: Nausea/Vomiting Pantoprazole Sodium (Protonix Inj) 40 mg IVP DAILY [facility] Last Admin: 11/25/17 12:04 Dose: 40 mg - Labs Labs: 11/25/17 06:30 11/25/17 06:30 PT 12.5 Seconds (9.8-13.1) 11/20/17 20:00 INR 1.1 (0.9-1.2) 11/20/17 20:00 APTT 26.5 Seconds (25.6-37.1) 11/20/17 20:00
[2017-11-26] MEDS: Albuterol-Ipratrop 3 mg / 0.5 (3 ml) UD INH SCH ×4 (01:00→19:23)
[2017-11-26] MEDS: Insulin Lispro (humaLOG) 100 Units/ml Inj SC SCH ×4 (06:36→22:40)
[2017-11-26] MEDS: Potassium Chl 20mEq & D5W 1,000 ML IV SCH (06:40)
--- NOTE | 2017-11-26 07:51 | CP.PCM.PN ---
Objective - Vital Signs/Intake and Output Vital Signs (last 24 hours): Temp Pulse Resp BP Pulse Ox 98.0 F 79 18 135/69 100 11/26/17 04:59 11/26/17 04:59 11/26/17 04:59 11/26/17 04:59 11/26/17 04:59 Intake and Output: 11/26/17 11/26/17 06:59 18:59 Intake Total 1200 Output Total 150 Balance 1050 - Medications Medications: Current Medications Acetaminophen (Tylenol 325mg Tab) 650 mg PO Q6 PRN PRN Reason: Fever >100.4 F Albuterol/Ipratropium (Duoneb 3 Mg/0.5 Mg (3 Ml) Ud) 3 ml INH RQ6 [facility] Last Admin: 11/26/17 07:32 Dose: 3 ml Amlodipine Besylate (Norvasc) 2.5 mg PO DAILY [facility] Last Admin: 11/25/17 12:12 Dose: Not Given Atorvastatin Calcium (Lipitor) 20 mg PO HS [facility] Last Admin: 11/25/17 22:01 Dose: Not Given Cilostazol (Pletal) 50 mg PO BID [facility] Last Admin: 11/23/17 19:30 Dose: Not Given Clopidogrel Bisulfate (Plavix) 75 mg PO DAILY [facility] Last Admin: 11/23/17 09:10 Dose: Not Given Cyanocobalamin (Vitamin B12 1000 Mcg/Ml Inj) 1,000 mcg IM DAILY [facility] Last Admin: 11/25/17 12:05 Dose: 1,000 mcg Enoxaparin Sodium (Lovenox) 40 mg SC DAILY [facility] PRN Reason: Protocol Last Admin: 11/25/17 08:40 Dose: 40 mg Hydralazine HCl (Apresoline) 10 mg IV Q6 PRN PRN Reason: Systolic Blood Pressure Ceftriaxone Sodium 1 gm/ (Sodium Chloride) 100 mls @ 100 mls/hr IVPB DAILY@ 2300 [facility] PRN Reason: Protocol Last Admin: 11/25/17 22:42 Dose: 100 mls/hr Azithromycin 500 mg/ Sodium (Chloride) 250 mls @ 250 mls/hr IVPB DAILY@0400 [facility] PRN Reason: Protocol Iron Sucrose 100 mg/ Sodium (Chloride) 105 mls @ 105 mls/hr IVPB DAILY [facility] Stop: 11/27/17 09:59 Last Admin: 11/25/17 12:06 Dose: 105 mls/hr Potassium Chloride/Dextrose (Potassium Chl 20 Meq In D5w) 1,000 mls @ 100 mls/ hr IV .Q10H [facility] Stop: 11/26/17 09:18 Last Admin: 11/26/17 06:40 Dose: 100 mls/hr Vancomycin HCl 1,000 mg/ (Sodium Chloride) 250 mls @ 166.667 mls/hr IVPB Q24H [facility] PRN Reason: Protocol Insulin Human Lispro (Humalog) 0 units SC ACHS [facility] PRN Reason: Protocol Last Admin: 11/26/17 06:36 Dose: 1 u Losartan Potassium (Cozaar) 50 mg PO BID [facility] Last Admin: 11/25/17 17:13 Dose: Not Given Olopatadine HCl (Patanol 0.1% Opht Soln) 1 drop OU DAILY [facility] Last Admin: 11/25/17 08:41 Dose: 1 drop Ondansetron HCl (Zofran Inj) 4 mg IVP Q6 PRN PRN Reason: Nausea/Vomiting Pantoprazole Sodium (Protonix Inj) 40 mg IVP DAILY [facility] Last Admin: 11/25/17 12:04 Dose: 40 mg - Labs Labs: 11/25/17 06:30 11/25/17 06:30 PT 12.5 Seconds (9.8-13.1) 11/20/17 20:00 INR 1.1 (0.9-1.2) 11/20/17 20:00 APTT 26.5 Seconds (25.6-37.1) 11/20/17 20:00 Assessment and Plan - Assessment and Plan (Free Text) Assessment: 87 y/o male with multiple medical conditions including DM2, CAD, CHF , bed bound x 5 years , who was brought in for fever and cough. Cough started on 11/06 , and he has gone to [facility] ED where he was seen and dx'ed with bronchitis and given abx. He did not get better, so presented to [facility] again, and was again discharged without any new intervention. Today, per family, he developed fever and worsening congestion, though cough did not become productive. Per family, no n/v/d. Patient also has had no PO intake for 2 days and weakness over last few days. Patient himself provides no history, all history is from family and chart. 1. Sepsis sec to Pneumonia likely Bacterial (POA) , suspected Aspiration PNA - on 2L NC saturating 98%, more awake today -Continue ceftriaxone/azithromycin IV, added IV Vanco -Pt's still with a lot of purulent secretions on suctioning - Pulmonary consulted- Dr Rae, discussed case -ID consulted -Duonebs q6 hours -Tylenol for fever - Mycoplasma Ag , Urine Legionella : pending - Sputum c/s : Staph aureus and Yeast 2. Dysphagia - ? Aspiration - failed multiple swallow eval, Keep NPO, continue maintenance fluids - discussed PEG placement with family , they now agree to the procedure -GI consult: Dr Woodward - attempted NGT placement however unable, pt pulling out tube 3. DM2 -ACHS accucheck -SSI 4. 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 History of Arrhythmia s/p Pacemaker 6. Hypernatremia sec to Dehydration - changed IVF to D5 W with KCl 7. HTN - will give IV antihypertensive prn 8. Anemia likely chronic and dilutional from IVF will monitor no signs of active bleeding started on PPI DVT PPx Lovenox
[2017-11-26 08:10] LABS: BASO % 0.5 % (0.0-2.0); EOS # 0.3 K/uL (0.0-0.7); EOS % 4.8 % (0.0-4.0); HEMOGLOBIN 8.9 g/dL (12.0-18.0); LYMPH # 0.4 K/uL (1.0-4.3); LYMPH % 6.8 % (20.0-40.0); MEAN CELL VOLUME 93.2 fl (80.0-94.0); MEAN CORPUSCULAR HGB CONC 34.4 g/dL (33.0-37.0); MEAN PLATELET VOLUME 7.2 fl (7.2-11.7); MONO # 0.6 K/uL (0.0-0.8); MONO % 8.9 % (0.0-10.0); NEUT # 5.2 K/uL (1.8-7.0); RBC 2.78 Mil/uL (4.40-5.90); RED CELL DISTRIBUTION WIDTH 14.6 % (11.5-14.5); WHITE BLOOD COUNT 6.6 K/uL (4.8-10.8)
[2017-11-26] MEDS: Enoxaparin 40 mg Syringe SC SCH (08:10)
[2017-11-26] MEDS: Olopatadine 0.1% Opht SOLN OU SCH (08:11)
[2017-11-26] MEDS: Azithromycin 500 MG in Sodium Chloride 0.9% 250 ML IVPB SCH (08:12)
--- NOTE | 2017-11-26 08:35 | CP.PCM.PN ---
<Sam,Tania - Last Filed: 11/26/17 10:58> Subjective - Date & Time of Evaluation Date of Evaluation: 11/26/17 Time of Evaluation: 07:45 - Subjective Subjective: GI Fellow PGY4 Progress Note Pt seen and evaluated at bedside, pt drowsy, lethargic unable to answer questions, mumbles, per nursing is at baseline. No acute events overnight. ROS: A 12pt ROS was negative except as above Objective - Vital Signs/Intake and Output Vital Signs (last 24 hours): Temp Pulse Resp BP Pulse Ox 98.5 F 78 20 184/84 H 100 11/26/17 07:59 11/26/17 08:09 11/26/17 07:59 11/26/17 08:09 11/26/17 07:59 Intake and Output: 11/26/17 11/26/17 06:59 18:59 Intake Total 1200 Output Total 150 Balance 1050 - Medications Medications: Current Medications Acetaminophen (Tylenol 325mg Tab) 650 mg PO Q6 PRN PRN Reason: Fever >100.4 F Albuterol/Ipratropium (Duoneb 3 Mg/0.5 Mg (3 Ml) Ud) 3 ml INH RQ6 [facility] Last Admin: 11/26/17 07:32 Dose: 3 ml Amlodipine Besylate (Norvasc) 2.5 mg PO DAILY [facility] Last Admin: 11/26/17 08:11 Dose: Not Given Atorvastatin Calcium (Lipitor) 20 mg PO HS [facility] Last Admin: 11/25/17 22:01 Dose: Not Given Cilostazol (Pletal) 50 mg PO BID [facility] Last Admin: 11/23/17 19:30 Dose: Not Given Clopidogrel Bisulfate (Plavix) 75 mg PO DAILY [facility] Last Admin: 11/23/17 09:10 Dose: Not Given Cyanocobalamin (Vitamin B12 1000 Mcg/Ml Inj) 1,000 mcg IM DAILY [facility] Last Admin: 11/26/17 08:21 Dose: 1,000 mcg Enoxaparin Sodium (Lovenox) 40 mg SC DAILY [facility] PRN Reason: Protocol Last Admin: 11/26/17 08:10 Dose: 40 mg Hydralazine HCl (Apresoline) 10 mg IV Q6 PRN PRN Reason: Systolic Blood Pressure Last Admin: 11/26/17 08:09 Dose: 10 mg Ceftriaxone Sodium 1 gm/ (Sodium Chloride) 100 mls @ 100 mls/hr IVPB DAILY@ 2300 [facility] PRN Reason: Protocol Last Admin: 11/25/17 22:42 Dose: 100 mls/hr Azithromycin 500 mg/ Sodium (Chloride) 250 mls @ 250 mls/hr IVPB DAILY@0400 [facility] PRN Reason: Protocol Last Admin: 11/26/17 08:12 Dose: Not Given Iron Sucrose 100 mg/ Sodium (Chloride) 105 mls @ 105 mls/hr IVPB DAILY [facility] Stop: 11/27/17 09:59 Last Admin: 11/26/17 08:13 Dose: 105 mls/hr Potassium Chloride/Dextrose (Potassium Chl 20 Meq In D5w) 1,000 mls @ 100 mls/ hr IV .Q10H [facility] Stop: 11/26/17 09:18 Last Admin: 11/26/17 06:40 Dose: 100 mls/hr Vancomycin HCl 1,000 mg/ (Sodium Chloride) 250 mls @ 166.667 mls/hr IVPB Q24H [facility] PRN Reason: Protocol Last Admin: 11/26/17 08:13 Dose: 166.667 mls/hr Insulin Human Lispro (Humalog) 0 units SC ACHS [facility] PRN Reason: Protocol Last Admin: 11/26/17 06:36 Dose: 1 u Losartan Potassium (Cozaar) 50 mg PO BID [facility] Last Admin: 11/26/17 08:10 Dose: Not Given Olopatadine HCl (Patanol 0.1% Opht Soln) 1 drop OU DAILY [facility] Last Admin: 11/26/17 08:11 Dose: 1 drop Ondansetron HCl (Zofran Inj) 4 mg IVP Q6 PRN PRN Reason: Nausea/Vomiting Pantoprazole Sodium (Protonix Inj) 40 mg IVP DAILY [facility] Last Admin: 11/26/17 08:11 Dose: 40 mg - Labs Labs: 11/26/17 06:30 11/25/17 06:30 PT 12.5 Seconds (9.8-13.1) 11/20/17 20:00 INR 1.1 (0.9-1.2) 11/20/17 20:00 APTT 26.5 Seconds (25.6-37.1) 11/20/17 20:00 - Constitutional Appears: Non-toxic, No Acute Distress, Cachectic, Chronically Ill - Head Exam Head Exam: ATRAUMATIC, NORMAL INSPECTION, NORMOCEPHALIC - ENT Exam ENT Exam: Mucous Membranes Dry - Respiratory Exam Respiratory Exam: Clear to Ausculation Bilateral, NORMAL BREATHING PATTERN - Cardiovascular Exam Cardiovascular Exam: REGULAR RHYTHM, +S1, +S2 - GI/Abdominal Exam GI & Abdominal Exam: Soft, Normal Bowel Sounds. absent: Distended, Firm, Tenderness, Organomegaly - Rectal Exam Rectal Exam: Deferred - Extremities Exam Extremities Exam: Normal Inspection. absent: Full ROM, Pedal Edema - Psychiatric Exam Psychiatric exam: Flat Affect - Skin Skin Exam: Abrasion, Dry, Rash Assessment and Plan - Assessment and Plan (Free Text) Assessment: This is a 87yM with pmhx of COPD, Dementia, CVA being admitted for bronchitis. 1. Aspiration PNA 2. Dysphagia 3. Failure to thrive/malnutrition Plan: -Continue supportive care -Pulmonary care, aspiration precautions -IV abx per ID -Plavix on hold since 11/21/17 -Hold Lovenox 11/27/17 -Plan for PEG on Tuesday, discussed with family at bedside who is agreeable -Will continue to follow closely <Pieter Madera - Last Filed: 11/26/17 11:10> Objective - Vital Signs/Intake and Output Vital Signs (last 24 hours): Temp Pulse Resp BP Pulse Ox 98.5 F 78 20 184/84 H 100 11/26/17 07:59 11/26/17 08:09 11/26/17 07:59 11/26/17 08:09 11/26/17 07:59 Intake and Output: 11/26/17 11/26/17 06:59 18:59 Intake Total 1200 Output Total 150 Balance 1050 - Medications Medications: Current Medications Acetaminophen (Tylenol 325mg Tab) 650 mg PO Q6 PRN PRN Reason: Fever >100.4 F Albuterol/Ipratropium (Duoneb 3 Mg/0.5 Mg (3 Ml) Ud) 3 ml INH RQ6 [facility] Last Admin: 11/26/17 07:32 Dose: 3 ml Amlodipine Besylate (Norvasc) 2.5 mg PO DAILY [facility] Last Admin: 11/26/17 08:11 Dose: Not Given Atorvastatin Calcium (Lipitor) 20 mg PO HS [facility] Last Admin: 11/25/17 22:01 Dose: Not Given Cilostazol (Pletal) 50 mg PO BID [facility] Last Admin: 11/23/17 19:30 Dose: Not Given Clopidogrel Bisulfate (Plavix) 75 mg PO DAILY [facility] Last Admin: 11/23/17 09:10 Dose: Not Given Cyanocobalamin (Vitamin B12 1000 Mcg/Ml Inj) 1,000 mcg IM DAILY [facility] Last Admin: 11/26/17 08:21 Dose: 1,000 mcg Enoxaparin Sodium (Lovenox) 40 mg SC DAILY [facility] PRN Reason: Protocol Last Admin: 11/26/17 08:10 Dose: 40 mg Hydralazine HCl (Apresoline) 10 mg IV Q6 PRN PRN Reason: Systolic Blood Pressure Last Admin: 11/26/17 08:09 Dose: 10 mg Ceftriaxone Sodium 1 gm/ (Sodium Chloride) 100 mls @ 100 mls/hr IVPB DAILY@ 2300 [facility] PRN Reason: Protocol Last Admin: 11/25/17 22:42 Dose: 100 mls/hr Azithromycin 500 mg/ Sodium (Chloride) 250 mls @ 250 mls/hr IVPB DAILY@0400 [facility] PRN Reason: Protocol Last Admin: 11/26/17 08:12 Dose: Not Given Iron Sucrose 100 mg/ Sodium (Chloride) 105 mls @ 105 mls/hr IVPB DAILY [facility] Stop: 11/27/17 09:59 Last Admin: 11/26/17 08:13 Dose: 105 mls/hr Vancomycin HCl 1,000 mg/ (Sodium Chloride) 250 mls @ 166.667 mls/hr IVPB Q24H [facility] PRN Reason: Protocol Last Admin: 11/26/17 08:13 Dose: 166.667 mls/hr Potassium Chloride/Dextrose/Sod Cl (Potassium Chl 20 Meq In D5-Ns) 1,000 mls @ 60 mls/hr IV .[id number] [facility] Stop: 11/27/17 10:12 Insulin Human Lispro (Humalog) 0 units SC ACHS [facility] PRN Reason: Protocol Last Admin: 11/26/17 06:36 Dose: 1 u Losartan Potassium (Cozaar) 50 mg PO BID [facility] Last Admin: 11/26/17 08:10 Dose: Not Given Olopatadine HCl (Patanol 0.1% Opht Soln) 1 drop OU DAILY [facility] Last Admin: 11/26/17 08:11 Dose: 1 drop Ondansetron HCl (Zofran Inj) 4 mg IVP Q6 PRN PRN Reason: Nausea/Vomiting Pantoprazole Sodium (Protonix Inj) 40 mg IVP DAILY [facility] Last Admin: 11/26/17 08:11 Dose: 40 mg - Labs Labs: 11/26/17 06:30 11/26/17 06:30 PT 12.5 Seconds (9.8-13.1) 11/20/17 20:00 INR 1.1 (0.9-1.2) 11/20/17 20:00 APTT 26.5 Seconds (25.6-37.1) 11/20/17 20:00 Attending/Attestation - Attestation I have personally seen and examined this patient.: Yes I have fully participated in the care of the patient.: Yes I have reviewed all pertinent clinical information, including history, physical exam and plan: Yes Notes (Text): 11/26/17 11:07 I have seen and examined patient with GI fellow. No acute events overnight, he is seen resting in bed comfortably. No reported abdominal pain, nausea, vomiting, fever/chills. Review of vitals from today shows elevated BP. COPD Dementia Aspiration pneumonia, dysphagia CVA on plavix (held) - NPO - Continue with antibiotic therapy - IVF hydration therapy - Patient tentatively scheduled for endoscopic gastrostomy placement on tuesday, will continue to monitor clinical course
[2017-11-26 09:13] LABS: BLOOD UREA NITROGEN 11 mg/dl (9-20); CALCIUM 8.3 mg/dL (8.4-10.2); GFR AFRICAN-AMERICAN > 60; GFR NON-AFRICAN AMERICAN > 60
--- NOTE | 2017-11-26 10:30 | CP.PCM.PN ---
Subjective - Date & Time of Evaluation Date of Evaluation: 11/26/17 Time of Evaluation: 10:00 - Subjective Subjective: Patient seen and examined today. Appears lethargic but arousable. No change from previous. Resting comfortably. NPO, for PEG on Tuesday. Objective - Vital Signs/Intake and Output Vital Signs (last 24 hours): Temp Pulse Resp BP Pulse Ox 98.5 F 78 20 184/84 H 100 11/26/17 07:59 11/26/17 08:09 11/26/17 07:59 11/26/17 08:09 11/26/17 07:59 Intake and Output: 11/26/17 11/26/17 06:59 18:59 Intake Total 1200 Output Total 150 Balance 1050 - Medications Medications: Current Medications Acetaminophen (Tylenol 325mg Tab) 650 mg PO Q6 PRN PRN Reason: Fever >100.4 F Albuterol/Ipratropium (Duoneb 3 Mg/0.5 Mg (3 Ml) Ud) 3 ml INH RQ6 [facility] Last Admin: 11/26/17 07:32 Dose: 3 ml Amlodipine Besylate (Norvasc) 2.5 mg PO DAILY [facility] Last Admin: 11/26/17 08:11 Dose: Not Given Atorvastatin Calcium (Lipitor) 20 mg PO HS [facility] Last Admin: 11/25/17 22:01 Dose: Not Given Cilostazol (Pletal) 50 mg PO BID [facility] Last Admin: 11/23/17 19:30 Dose: Not Given Clopidogrel Bisulfate (Plavix) 75 mg PO DAILY [facility] Last Admin: 11/23/17 09:10 Dose: Not Given Cyanocobalamin (Vitamin B12 1000 Mcg/Ml Inj) 1,000 mcg IM DAILY [facility] Last Admin: 11/26/17 08:21 Dose: 1,000 mcg Enoxaparin Sodium (Lovenox) 40 mg SC DAILY [facility] PRN Reason: Protocol Last Admin: 11/26/17 08:10 Dose: 40 mg Hydralazine HCl (Apresoline) 10 mg IV Q6 PRN PRN Reason: Systolic Blood Pressure Last Admin: 11/26/17 08:09 Dose: 10 mg Ceftriaxone Sodium 1 gm/ (Sodium Chloride) 100 mls @ 100 mls/hr IVPB DAILY@ 2300 [facility] PRN Reason: Protocol Last Admin: 11/25/17 22:42 Dose: 100 mls/hr Azithromycin 500 mg/ Sodium (Chloride) 250 mls @ 250 mls/hr IVPB DAILY@0400 [facility] PRN Reason: Protocol Last Admin: 11/26/17 08:12 Dose: Not Given Iron Sucrose 100 mg/ Sodium (Chloride) 105 mls @ 105 mls/hr IVPB DAILY [facility] Stop: 11/27/17 09:59 Last Admin: 11/26/17 08:13 Dose: 105 mls/hr Vancomycin HCl 1,000 mg/ (Sodium Chloride) 250 mls @ 166.667 mls/hr IVPB Q24H [facility] PRN Reason: Protocol Last Admin: 11/26/17 08:13 Dose: 166.667 mls/hr Potassium Chloride/Dextrose/Sod Cl (Potassium Chl 20 Meq In D5-Ns) 1,000 mls @ 60 mls/hr IV .[id number] [facility] Stop: 11/27/17 10:12 Insulin Human Lispro (Humalog) 0 units SC ACHS [facility] PRN Reason: Protocol Last Admin: 11/26/17 06:36 Dose: 1 u Losartan Potassium (Cozaar) 50 mg PO BID [facility] Last Admin: 11/26/17 08:10 Dose: Not Given Olopatadine HCl (Patanol 0.1% Opht Soln) 1 drop OU DAILY [facility] Last Admin: 11/26/17 08:11 Dose: 1 drop Ondansetron HCl (Zofran Inj) 4 mg IVP Q6 PRN PRN Reason: Nausea/Vomiting Pantoprazole Sodium (Protonix Inj) 40 mg IVP DAILY [facility] Last Admin: 11/26/17 08:11 Dose: 40 mg - Labs Labs: 11/26/17 06:30 11/26/17 06:30 PT 12.5 Seconds (9.8-13.1) 11/20/17 20:00 INR 1.1 (0.9-1.2) 11/20/17 20:00 APTT 26.5 Seconds (25.6-37.1) 11/20/17 20:00 - Additional Findings Additional findings: Physical exam: Constitutional- cooperative, lethargic but arousable Head- NCAT, PERRL Eye- PERRL, EOMI ENT- normal exam, MMM. Neck- normal inspection, supple, no JVD Respiratory- CTAB, no wheezes rales rhonchi Cardiovascular- RRR, +S1, +S2 no MRG GI/Abdominal- normal bowel sounds, soft, no mass, no hsm Skin- warm, dry Extremities Exam- normal capillary refill, normal inspection Neurological Exam- lethargic but arousable. Moves upper extremities freely, minimal movement bilateral lower extremities Psych- lethargic, flat affect. Demented Assessment and Plan - Assessment and Plan (Free Text) Plan: 87 y/o male with multiple medical conditions including DM2, CAD, CHF , bed bound x 5 years , who was brought in for fever and cough. Cough started on 11/06 , and he has gone to [facility] ED where he was seen and 'ed with bronchitis and given abx. He did not get better, so presented to [facility] again, and was again discharged without any new intervention. Today, per family, he developed fever and worsening congestion, though cough did not become productive. Per family, no n/v/d. Patient also has had no PO intake for 2 days and weakness over last few days. Patient himself provides no history, all history is from family and chart. 1. Sepsis sec to Pneumonia likely Bacterial (POA) , suspected Aspiration PNA - on 2L NC saturating 98%, a little more lethargic today -Continue ceftriaxone/azithromycin IV, added IV Vanco -Pt's still with a lot of purulent secretions on suctioning - Pulmonary consulted- Dr Rae, discussed case -ID consulted, Dr. Phillips -Bob q6 hours -Tylenol for fever - Mycoplasma Ag , Urine Legionella : pending - Sputum c/s : Staph aureus and Yeast 2. Dysphagia - ? Aspiration - failed multiple swallow eval, Keep NPO, continue maintenance fluids, D5 NS at 60 cc/hour with 20 meq potassium - Check mag, phos, BMP, in AM to monitor lytes while npo - discussed PEG placement with family , they now agree to the procedure -GI consult: Dr Woodward - attempted NGT placement however unable, pt pulling out tube 3. DM2 -ACHS accucheck -SSI 4. 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 History of Arrhythmia s/p Pacemaker 6. Hypernatremia sec to Dehydration - changed IVF to D5 W with KCl 7. HTN - will give IV antihypertensive prn 8. Anemia likely chronic and dilutional from IVF will monitor no signs of active bleeding started on PPI 9. Hypokalemia - From inadquate po intake - Replete via IV DVT PPx Lovenox
[2017-11-26] MEDS ORDERED: Potassium Chl 20 mEq in D5-NS 1,000 ML IV SCH (11:00)
[2017-11-27] MEDS: Albuterol-Ipratrop 3 mg / 0.5 (3 ml) UD INH SCH ×4 (01:00→19:02)
[2017-11-27 05:09] LABS: MEAN CELL VOLUME 94.1 fl (80.0-94.0); MEAN CORPUSCULAR HEMOGLOBIN 31.4 pg (27.0-31.0); MEAN CORPUSCULAR HGB CONC 33.4 g/dL (33.0-37.0); RBC 2.87 Mil/uL (4.40-5.90); RED CELL DISTRIBUTION WIDTH 15.3 % (11.5-14.5); WHITE BLOOD COUNT 6.1 K/uL (4.8-10.8)
[2017-11-27 05:25] LABS: BLOOD UREA NITROGEN 11 mg/dl (9-20); CALCIUM 8.2 mg/dL (8.4-10.2); GFR AFRICAN-AMERICAN > 60; GFR NON-AFRICAN AMERICAN > 60
--- NOTE | 2017-11-27 07:51 | CP.PCM.PN ---
<SamTania - Last Filed: 11/27/17 07:52> Subjective - Date & Time of Evaluation Date of Evaluation: 11/27/17 Time of Evaluation: 07:30 - Subjective Subjective: GI Fellow PGY4 Progress Note Pt seen and evaluated at bedside, pt sleeping, difficult to arouse, unable to answer questions, mumbles, per nursing is at baseline. No acute events overnight. Per nursing no IV access, copious amount of secretions requiring suctioning. ROS: A 12pt ROS was negative except as above Objective - Vital Signs/Intake and Output Vital Signs (last 24 hours): Temp Pulse Resp BP Pulse Ox 98.4 F 89 18 134/82 98 11/27/17 05:00 11/27/17 05:00 11/27/17 05:00 11/27/17 05:00 11/27/17 05:00 - Medications Medications: Current Medications Acetaminophen (Tylenol 325mg Tab) 650 mg PO Q6 PRN PRN Reason: Fever >100.4 F Albuterol/Ipratropium (Duoneb 3 Mg/0.5 Mg (3 Ml) Ud) 3 ml INH RQ6 [facility] Last Admin: 11/27/17 07:29 Dose: 3 ml Amlodipine Besylate (Norvasc) 2.5 mg PO DAILY [facility] Last Admin: 11/26/17 08:11 Dose: Not Given Atorvastatin Calcium (Lipitor) 20 mg PO HS [facility] Last Admin: 11/26/17 21:56 Dose: Not Given Cilostazol (Pletal) 50 mg PO BID [facility] Last Admin: 11/23/17 19:30 Dose: Not Given Clopidogrel Bisulfate (Plavix) 75 mg PO DAILY [facility] Last Admin: 11/23/17 09:10 Dose: Not Given Cyanocobalamin (Vitamin B12 1000 Mcg/Ml Inj) 1,000 mcg IM DAILY [facility] Last Admin: 11/26/17 08:21 Dose: 1,000 mcg Enoxaparin Sodium (Lovenox) 40 mg SC DAILY [facility] PRN Reason: Protocol Last Admin: 11/26/17 08:10 Dose: 40 mg Hydralazine HCl (Apresoline) 10 mg IV Q6 PRN PRN Reason: Systolic Blood Pressure Last Admin: 11/26/17 08:09 Dose: 10 mg Ceftriaxone Sodium 1 gm/ (Sodium Chloride) 100 mls @ 100 mls/hr IVPB DAILY@ 2300 [facility] PRN Reason: Protocol Last Admin: 11/26/17 22:00 Dose: 100 mls/hr Azithromycin 500 mg/ Sodium (Chloride) 250 mls @ 250 mls/hr IVPB DAILY@0400 [facility] PRN Reason: Protocol Last Admin: 11/26/17 08:12 Dose: Not Given Iron Sucrose 100 mg/ Sodium (Chloride) 105 mls @ 105 mls/hr IVPB DAILY [facility] Stop: 11/27/17 09:59 Last Admin: 11/26/17 08:13 Dose: 105 mls/hr Vancomycin HCl 1,000 mg/ (Sodium Chloride) 250 mls @ 166.667 mls/hr IVPB Q24H [facility] PRN Reason: Protocol Last Admin: 11/26/17 08:13 Dose: 166.667 mls/hr Potassium Chloride/Dextrose/Sod Cl (Potassium Chl 20 Meq In D5-Ns) 1,000 mls @ 60 mls/hr IV .[id number] [facility] Stop: 11/27/17 10:12 Last Admin: 11/26/17 14:16 Dose: 60 mls/hr Insulin Human Lispro (Humalog) 0 units SC ACHS [facility] PRN Reason: Protocol Last Admin: 11/26/17 22:40 Dose: Not Given Losartan Potassium (Cozaar) 50 mg PO BID [facility] Last Admin: 11/26/17 16:53 Dose: Not Given Olopatadine HCl (Patanol 0.1% Opht Soln) 1 drop OU DAILY [facility] Last Admin: 11/26/17 08:11 Dose: 1 drop Ondansetron HCl (Zofran Inj) 4 mg IVP Q6 PRN PRN Reason: Nausea/Vomiting Pantoprazole Sodium (Protonix Inj) 40 mg IVP DAILY [facility] Last Admin: 11/26/17 08:11 Dose: 40 mg - Labs Labs: 11/27/17 04:48 11/27/17 04:48 PT 12.5 Seconds (9.8-13.1) 11/20/17 20:00 INR 1.1 (0.9-1.2) 11/20/17 20:00 APTT 26.5 Seconds (25.6-37.1) 11/20/17 20:00 - Constitutional Appears: Confused, Cachectic, Chronically Ill - Head Exam Head Exam: ATRAUMATIC, NORMAL INSPECTION, NORMOCEPHALIC - ENT Exam ENT Exam: Mucous Membranes Dry - Respiratory Exam Respiratory Exam: Clear to Ausculation Bilateral, NORMAL BREATHING PATTERN - Cardiovascular Exam Cardiovascular Exam: RRR, +S1 - GI/Abdominal Exam GI & Abdominal Exam: Soft, Normal Bowel Sounds. absent: Distended, Firm, Tenderness, Organomegaly - Extremities Exam Extremities Exam: Normal Inspection. absent: Pedal Edema - Psychiatric Exam Psychiatric exam: Flat Affect - Skin Skin Exam: Abrasion, Dry, Intact, Normal Color, Warm Assessment and Plan - Assessment and Plan (Free Text) Assessment: This is a 87yM with pmhx of COPD, Dementia, CVA being admitted for bronchitis. 1. Aspiration PNA 2. Dysphagia 3. Failure to thrive/malnutrition Plan: -Continue supportive care -Pulmonary care, aspiration precautions -IV abx per ID -Plavix and Pletal on hold since 11/21/17 -Last dose of Lovenox 11/26/17 -IV fluid hydration -NPO -Plan for PEG on Tuesday, discussed with family at bedside who is agreeable, voicemail left to endoscopy, will confirm time tomorrow -Will continue to follow closely <Pieter Madera - Last Filed: 11/27/17 11:13> Objective - Vital Signs/Intake and Output Vital Signs (last 24 hours): Temp Pulse Resp BP Pulse Ox 98.7 F 59 L 20 144/75 98 11/27/17 08:53 11/27/17 08:53 11/27/17 08:53 11/27/17 08:53 11/27/17 08:53 - Medications Medications: Current Medications Acetaminophen (Tylenol 325mg Tab) 650 mg PO Q6 PRN PRN Reason: Fever >100.4 F Albuterol/Ipratropium (Duoneb 3 Mg/0.5 Mg (3 Ml) Ud) 3 ml INH RQ6 [facility] Last Admin: 11/27/17 07:29 Dose: 3 ml Amlodipine Besylate (Norvasc) 2.5 mg PO DAILY [facility] Last Admin: 11/26/17 08:11 Dose: Not Given Atorvastatin Calcium (Lipitor) 20 mg PO HS [facility] Last Admin: 11/26/17 21:56 Dose: Not Given Cilostazol (Pletal) 50 mg PO BID [facility] Last Admin: 11/23/17 19:30 Dose: Not Given Clopidogrel Bisulfate (Plavix) 75 mg PO DAILY [facility] Last Admin: 11/23/17 09:10 Dose: Not Given Cyanocobalamin (Vitamin B12 1000 Mcg/Ml Inj) 1,000 mcg IM DAILY [facility] Last Admin: 11/26/17 08:21 Dose: 1,000 mcg Enoxaparin Sodium (Lovenox) 40 mg SC DAILY [facility] PRN Reason: Protocol Last Admin: 11/26/17 08:10 Dose: 40 mg Hydralazine HCl (Apresoline) 10 mg IV Q6 PRN PRN Reason: Systolic Blood Pressure Last Admin: 11/26/17 08:09 Dose: 10 mg Ceftriaxone Sodium 1 gm/ (Sodium Chloride) 100 mls @ 100 mls/hr IVPB DAILY@ 2300 [facility] PRN Reason: Protocol Last Admin: 11/26/17 22:00 Dose: 100 mls/hr Azithromycin 500 mg/ Sodium (Chloride) 250 mls @ 250 mls/hr IVPB DAILY@0400 [facility] PRN Reason: Protocol Last Admin: 11/26/17 08:12 Dose: Not Given Vancomycin HCl 1,000 mg/ (Sodium Chloride) 250 mls @ 166.667 mls/hr IVPB Q24H [facility] PRN Reason: Protocol Last Admin: 11/26/17 08:13 Dose: 166.667 mls/hr Insulin Human Lispro (Humalog) 0 units SC ACHS [facility] PRN Reason: Protocol Last Admin: 11/26/17 22:40 Dose: Not Given Losartan Potassium (Cozaar) 50 mg PO BID [facility] Last Admin: 11/26/17 16:53 Dose: Not Given Olopatadine HCl (Patanol 0.1% Opht Soln) 1 drop OU DAILY [facility] Last Admin: 11/26/17 08:11 Dose: 1 drop Ondansetron HCl (Zofran Inj) 4 mg IVP Q6 PRN PRN Reason: Nausea/Vomiting Pantoprazole Sodium (Protonix Inj) 40 mg IVP DAILY [facility] Last Admin: 11/26/17 08:11 Dose: 40 mg - Labs Labs: 11/27/17 04:48 11/27/17 04:48 PT 12.5 Seconds (9.8-13.1) 11/20/17 20:00 INR 1.1 (0.9-1.2) 11/20/17 20:00 APTT 26.5 Seconds (25.6-37.1) 11/20/17 20:00 Attending/Attestation - Attestation I have personally seen and examined this patient.: Yes I have fully participated in the care of the patient.: Yes I have reviewed all pertinent clinical information, including history, physical exam and plan: Yes Notes (Text): 11/27/17 11:11 I have seen and examined patient with GI fellow. No acute events overnight, he is seen resting in bed comfortably. No reported abdominal pain, nausea, vomiting, fever/chills. Review of vitals from today are normal. COPD Dementia Aspiration pneumonia, dysphagia CVA on plavix (held) - NPO - Continue with antibiotic therapy - Continue with IVF hydration therapy - Plan for endoscopic gastrostomy tube placement tomorrow
--- NOTE | 2017-11-27 11:40 | CP.PCM.PN ---
Subjective - Date & Time of Evaluation Date of Evaluation: 11/27/17 Time of Evaluation: 11:20 - Subjective Subjective: Patient seen and examined. Still lethargic but arousable and conversant. No new changes from yesterday. For PEG tube placement on Tuesday. Lost IV access, will attempt PICC line today vs femoral triple lumen Objective - Vital Signs/Intake and Output Vital Signs (last 24 hours): Temp Pulse Resp BP Pulse Ox 98.7 F 59 L 20 144/75 98 11/27/17 08:53 11/27/17 08:53 11/27/17 08:53 11/27/17 08:53 11/27/17 08:53 - Medications Medications: Current Medications Acetaminophen (Tylenol 325mg Tab) 650 mg PO Q6 PRN PRN Reason: Fever >100.4 F Albuterol/Ipratropium (Duoneb 3 Mg/0.5 Mg (3 Ml) Ud) 3 ml INH RQ6 [facility] Last Admin: 11/27/17 07:29 Dose: 3 ml Amlodipine Besylate (Norvasc) 2.5 mg PO DAILY [facility] Last Admin: 11/26/17 08:11 Dose: Not Given Atorvastatin Calcium (Lipitor) 20 mg PO HS [facility] Last Admin: 11/26/17 21:56 Dose: Not Given Cilostazol (Pletal) 50 mg PO BID [facility] Last Admin: 11/23/17 19:30 Dose: Not Given Clopidogrel Bisulfate (Plavix) 75 mg PO DAILY [facility] Last Admin: 11/23/17 09:10 Dose: Not Given Cyanocobalamin (Vitamin B12 1000 Mcg/Ml Inj) 1,000 mcg IM DAILY [facility] Last Admin: 11/26/17 08:21 Dose: 1,000 mcg Enoxaparin Sodium (Lovenox) 40 mg SC DAILY [facility] PRN Reason: Protocol Last Admin: 11/26/17 08:10 Dose: 40 mg Hydralazine HCl (Apresoline) 10 mg IV Q6 PRN PRN Reason: Systolic Blood Pressure Last Admin: 11/26/17 08:09 Dose: 10 mg Ceftriaxone Sodium 1 gm/ (Sodium Chloride) 100 mls @ 100 mls/hr IVPB DAILY@ 2300 [facility] PRN Reason: Protocol Last Admin: 11/26/17 22:00 Dose: 100 mls/hr Azithromycin 500 mg/ Sodium (Chloride) 250 mls @ 250 mls/hr IVPB DAILY@0400 [facility] PRN Reason: Protocol Last Admin: 11/26/17 08:12 Dose: Not Given Vancomycin HCl 1,000 mg/ (Sodium Chloride) 250 mls @ 166.667 mls/hr IVPB Q24H [facility] PRN Reason: Protocol Last Admin: 11/26/17 08:13 Dose: 166.667 mls/hr Insulin Human Lispro (Humalog) 0 units SC ACHS [facility] PRN Reason: Protocol Last Admin: 11/26/17 22:40 Dose: Not Given Losartan Potassium (Cozaar) 50 mg PO BID [facility] Last Admin: 11/26/17 16:53 Dose: Not Given Olopatadine HCl (Patanol 0.1% Opht Soln) 1 drop OU DAILY [facility] Last Admin: 11/26/17 08:11 Dose: 1 drop Ondansetron HCl (Zofran Inj) 4 mg IVP Q6 PRN PRN Reason: Nausea/Vomiting Pantoprazole Sodium (Protonix Inj) 40 mg IVP DAILY [facility] Last Admin: 11/26/17 08:11 Dose: 40 mg - Labs Labs: 11/27/17 04:48 11/27/17 04:48 PT 12.5 Seconds (9.8-13.1) 11/20/17 20:00 INR 1.1 (0.9-1.2) 11/20/17 20:00 APTT 26.5 Seconds (25.6-37.1) 11/20/17 20:00 - Additional Findings Additional findings: Physical exam: Constitutional- cooperative, lethargic but arousable Head- NCAT, PERRL Eye- PERRL, EOMI ENT- normal exam, MMM. Neck- normal inspection, supple, no JVD Respiratory- CTAB, no wheezes rales rhonchi Cardiovascular- RRR, +S1, +S2 no MRG GI/Abdominal- normal bowel sounds, soft, no mass, no hsm Skin- warm, dry Extremities Exam- normal capillary refill, normal inspection Neurological Exam- lethargic but arousable. Moves upper extremities freely, minimal movement bilateral lower extremities Psych- lethargic, flat affect. Demented Assessment and Plan - Assessment and Plan (Free Text) Plan: 87 y/o male with multiple medical conditions including DM2, CAD, CHF , bed bound x 5 years , who was brought in for fever and cough. Cough started on 11/06 , and he has gone to [facility] ED where he was seen and dx'ed with bronchitis and given abx. He did not get better, so presented to [facility] again, and was again discharged without any new intervention. Today, per family, he developed fever and worsening congestion, though cough did not become productive. Per family, no n/v/d. Patient also has had no PO intake for 2 days and weakness over last few days. Patient himself provides no history, all history is from family and chart. 1. Sepsis sec to Pneumonia likely Bacterial (POA) , suspected Aspiration PNA - on 2L NC saturating 98%, a little more lethargic today -Continue ceftriaxone/azithromycin IV, added IV Vanco -Pt's still with a lot of purulent secretions on suctioning - Pulmonary consulted- Dr Rae, discussed case -ID consulted, Dr. Phillips -Bob q6 hours -Tylenol for fever - Mycoplasma Ag , Urine Legionella : pending - Sputum c/s : Staph aureus and Yeast 2. Dysphagia - ? Aspiration - failed multiple swallow eval, Keep NPO, continue maintenance fluids, D5 NS at 60 cc/hour with 20 meq potassium - Check mag, phos, BMP, in AM to monitor lytes while npo - discussed PEG placement with family , they now agree to the procedure -GI consult: Dr Woodward - attempted NGT placement however unable, pt pulling out tube 3. DM2 -ACHS accucheck -SSI 4. 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 History of Arrhythmia s/p Pacemaker 6. Hypernatremia sec to Dehydration - changed IVF to D5 W with KCl 7. HTN - will give IV antihypertensive prn 8. Anemia likely chronic and dilutional from IVF will monitor no signs of active bleeding started on PPI 9. Hypokalemia - From inadquate po intake - Replete via IV DVT PPx Lovenox
[2017-11-27] MEDS: Insulin Lispro (humaLOG) 100 Units/ml Inj SC SCH ×3 (13:09→21:23)
[2017-11-27] MEDS: Olopatadine 0.1% Opht SOLN OU SCH (13:10)
--- NOTE | 2017-11-27 13:18 | CP.PCM.PN ---
Subjective - Date & Time of Evaluation Date of Evaluation: 11/27/17 Time of Evaluation: 09:00 - Subjective Subjective: afebrile on IV antibiotics iv rx in progress remains confused and congested multiple skin sores present from home Objective - Vital Signs/Intake and Output Vital Signs (last 24 hours): Temp Pulse Resp BP Pulse Ox 98.7 F 59 L 20 144/75 98 11/27/17 08:53 11/27/17 08:53 11/27/17 08:53 11/27/17 08:53 11/27/17 08:53 - Medications Medications: Current Medications Acetaminophen (Tylenol 325mg Tab) 650 mg PO Q6 PRN PRN Reason: Fever >100.4 F Albuterol/Ipratropium (Duoneb 3 Mg/0.5 Mg (3 Ml) Ud) 3 ml INH RQ6 [facility] Last Admin: 11/27/17 07:29 Dose: 3 ml Amlodipine Besylate (Norvasc) 2.5 mg PO DAILY [facility] Last Admin: 11/27/17 12:51 Dose: Not Given Atorvastatin Calcium (Lipitor) 20 mg PO HS [facility] Last Admin: 11/26/17 21:56 Dose: Not Given Cilostazol (Pletal) 50 mg PO BID [facility] Last Admin: 11/23/17 19:30 Dose: Not Given Clopidogrel Bisulfate (Plavix) 75 mg PO DAILY [facility] Last Admin: 11/23/17 09:10 Dose: Not Given Cyanocobalamin (Vitamin B12 1000 Mcg/Ml Inj) 1,000 mcg IM DAILY [facility] Last Admin: 11/27/17 13:12 Dose: 1,000 mcg Hydralazine HCl (Apresoline) 10 mg IV Q6 PRN PRN Reason: Systolic Blood Pressure Last Admin: 11/26/17 08:09 Dose: 10 mg Ceftriaxone Sodium 1 gm/ (Sodium Chloride) 100 mls @ 100 mls/hr IVPB DAILY@ 2300 [facility] PRN Reason: Protocol Last Admin: 11/26/17 22:00 Dose: 100 mls/hr Azithromycin 500 mg/ Sodium (Chloride) 250 mls @ 250 mls/hr IVPB DAILY@0400 [facility] PRN Reason: Protocol Last Admin: 11/26/17 08:12 Dose: Not Given Vancomycin HCl 1,000 mg/ (Sodium Chloride) 250 mls @ 166.667 mls/hr IVPB Q24H [facility] PRN Reason: Protocol Last Admin: 11/27/17 12:52 Dose: Not Given Insulin Human Lispro (Humalog) 0 units SC ACHS [facility] PRN Reason: Protocol Last Admin: 11/27/17 13:09 Dose: Not Given Losartan Potassium (Cozaar) 50 mg PO BID [facility] Last Admin: 11/27/17 12:50 Dose: Not Given Olopatadine HCl (Patanol 0.1% Opht Soln) 1 drop OU DAILY [facility] Last Admin: 11/27/17 13:10 Dose: 1 drop Ondansetron HCl (Zofran Inj) 4 mg IVP Q6 PRN PRN Reason: Nausea/Vomiting Pantoprazole Sodium (Protonix Inj) 40 mg IVP DAILY [facility] Last Admin: 11/27/17 12:51 Dose: Not Given - Labs Labs: 11/27/17 04:48 11/27/17 04:48 PT 12.5 Seconds (9.8-13.1) 11/20/17 20:00 INR 1.1 (0.9-1.2) 11/20/17 20:00 APTT 26.5 Seconds (25.6-37.1) 11/20/17 20:00 - Constitutional Appears: Non-toxic, Chronically Ill - Head Exam Head Exam: NORMOCEPHALIC - Eye Exam Eye Exam: PERRL - ENT Exam ENT Exam: Mucous Membranes Dry - Neck Exam Neck Exam: absent: Lymphadenopathy - Respiratory Exam Respiratory Exam: Decreased Breath Sounds - Cardiovascular Exam Cardiovascular Exam: REGULAR RHYTHM - GI/Abdominal Exam GI & Abdominal Exam: Distended, Soft - Exam Exam: NORMAL INSPECTION - Extremities Exam Extremities Exam: Pedal Edema - Back Exam Back Exam: absent: CVA tenderness (L), CVA tenderness (R) - Neurological Exam Neurological Exam: Altered, Awake - Psychiatric Exam Psychiatric exam: Depressed Assessment and Plan (1) CAP (community acquired pneumonia) Status: Acute (2) DM2 (diabetes mellitus, type 2) Status: Acute (3) DVT prophylaxis Status: Acute (4) Pneumonia Status: Acute (5) Sepsis Status: Acute (6) Bronchitis Status: Acute (7) CAD (coronary artery disease) Status: Acute (8) Diabetes Status: Acute (9) Pacemaker Status: Acute (10) Weakness Status: Acute - Assessment and Plan (Free Text) Assessment: vanco d/c'd cont zmax/ rocephin for CAP reculture PRN
--- NOTE | 2017-11-27 14:35 | PCM.PROC ---
Procedures Attestation:: I certify that I have explained the specified Operation(s) or Procedure(s), risks, benefits and reasonable alternatives to the Patient and/or other person responsible. The opportunity was given to ask questions and all questions answered - Central Line Placement Right Internal Jugular Triple Lumen Catheter Aseptic technique was employed throughout the procedure: Chloraprep Antiseptic: 2 minute prep for Femoral CVP Time Out Performed: Yes Pt. Placed on Pulse Ox Monitor: Yes Central Line Prep: Chlorhexidine-Alcohol Combination Local Anesthesia Used: Lidocaine 1% Ultrasound Used for Placement: Yes Central Line Lumen Inserted: triple Central Line Length: 20 cm Post Procedure: Sutured in Place, Good Blood Return, All Ports Aspirated, Flushed, Capped, Sterile Dressing Applied Secured by: Suture Post procedure dressing: Clear vapor permeable, Chlorhexidine disc (Biopatch) Post Procedure X-Ray: Yes Patient Tolerated Procedure: Well, No Complications Immediate Complications: None
[2017-11-27] MEDS ORDERED: Magnesium Sulfate 1 gm in D5W 1 GM/100 ML BAG IVPB ONE (15:30)
[2017-11-27] MEDS ORDERED: Potassium Chl 20 mEq in D5-NS 1,000 ML IV SCH (16:00)
--- NOTE | 2017-11-27 16:36 | RAD ---
HISTORY: s/p central line COMPARISON: 11/24/2017 FINDINGS: The right central venous catheter terminates in the SVC. LUNGS: There is airspace disease in the right lower lobe. There is mild pulmonary venous congestion. PLEURA: Bilateral layering pleural effusions. No pneumothorax apparent. CARDIOVASCULAR: Normal. There is stable position of left-sided permanent pacing device. OSSEOUS STRUCTURES: No significant abnormalities. VISUALIZED UPPER ABDOMEN: Normal. OTHER FINDINGS: None. IMPRESSION: Right-sided central venous catheter terminates in the SVC. Suspect right lower lobe atelectasis/ pneumonia. Bilateral layering pleural effusions.
[2017-11-28] MEDS: Albuterol-Ipratrop 3 mg / 0.5 (3 ml) UD INH SCH ×4 (00:59→19:09)
[2017-11-28] MEDS: Azithromycin 500 MG in Sodium Chloride 0.9% 250 ML IVPB SCH (03:42)
[2017-11-28 05:24] LABS: HEMOGLOBIN 8.9 g/dL (12.0-18.0); MEAN CELL VOLUME 95.7 fl (80.0-94.0); MEAN CORPUSCULAR HEMOGLOBIN 32.4 pg (27.0-31.0); MEAN CORPUSCULAR HGB CONC 33.9 g/dL (33.0-37.0); RBC 2.73 Mil/uL (4.40-5.90); RED CELL DISTRIBUTION WIDTH 15.3 % (11.5-14.5)
[2017-11-28 05:33] LABS: PROTHROMBIN TIME 13.1 Seconds (9.8-13.1)
[2017-11-28 05:34] LABS: INR 1.2 (0.9-1.2)
[2017-11-28 05:40] LABS: ALB/GLOB RATIO 0.8 (1.0-2.1); ALBUMIN 2.4 g/dL (3.5-5.0); ALT/SGPT 33 U/L (21-72); AST/SGOT 42 U/L (17-59); BLOOD UREA NITROGEN 12 mg/dl (9-20); CALCIUM 8.3 mg/dL (8.4-10.2); GFR AFRICAN-AMERICAN > 60; GFR NON-AFRICAN AMERICAN > 60
[2017-11-28] MEDS: Potassium Chl 20mEq & D5W 1,000 ML IV SCH (08:30)
--- NOTE | 2017-11-28 08:38 | CP.PCM.PN ---
Subjective - Date & Time of Evaluation Date of Evaluation: 11/28/17 Time of Evaluation: 08:00 - Subjective Subjective: Pt is afebrile cough better Failed Swallow eval -multiple attempts He is scheduled for pEG placement today Daughter at bedside - agrees to the procedure Objective - Vital Signs/Intake and Output Vital Signs (last 24 hours): Temp Pulse Resp BP Pulse Ox 97.1 F L 58 L 18 152/75 H 95 11/28/17 07:53 11/28/17 07:53 11/28/17 07:53 11/28/17 07:53 11/28/17 07:53 - Medications Medications: Current Medications Acetaminophen (Tylenol 325mg Tab) 650 mg PO Q6 PRN PRN Reason: Fever >100.4 F Albuterol/Ipratropium (Duoneb 3 Mg/0.5 Mg (3 Ml) Ud) 3 ml INH RQ6 [facility] Last Admin: 11/28/17 07:55 Dose: 3 ml Amlodipine Besylate (Norvasc) 2.5 mg PO DAILY [facility] Last Admin: 11/27/17 12:51 Dose: Not Given Atorvastatin Calcium (Lipitor) 20 mg PO HS [facility] Last Admin: 11/27/17 21:24 Dose: Not Given Cilostazol (Pletal) 50 mg PO BID [facility] Last Admin: 11/23/17 19:30 Dose: Not Given Clopidogrel Bisulfate (Plavix) 75 mg PO DAILY [facility] Last Admin: 11/23/17 09:10 Dose: Not Given Cyanocobalamin (Vitamin B12 1000 Mcg/Ml Inj) 1,000 mcg IM DAILY [facility] Last Admin: 11/27/17 13:12 Dose: 1,000 mcg Hydralazine HCl (Apresoline) 10 mg IV Q6 PRN PRN Reason: Systolic Blood Pressure Last Admin: 11/26/17 08:09 Dose: 10 mg Ceftriaxone Sodium 1 gm/ (Sodium Chloride) 100 mls @ 100 mls/hr IVPB DAILY@ 2300 [facility] PRN Reason: Protocol Last Admin: 11/27/17 22:02 Dose: 100 mls/hr Azithromycin 500 mg/ Sodium (Chloride) 250 mls @ 250 mls/hr IVPB DAILY@0400 [facility] PRN Reason: Protocol Last Admin: 11/28/17 03:42 Dose: 250 mls/hr Potassium Chloride/Dextrose (Potassium Chl 20 Meq In D5w) 1,000 mls @ 80 mls/ hr IV .[id number] [facility] Stop: 11/29/17 07:34 Vancomycin HCl 1 gm/ Sodium (Chloride) 250 mls @ 125 mls/hr IVPB DAILY [facility] PRN Reason: Protocol Insulin Human Lispro (Humalog) 0 units SC ACHS [facility] PRN Reason: Protocol Last Admin: 11/27/17 21:23 Dose: Not Given Losartan Potassium (Cozaar) 50 mg PO BID [facility] Last Admin: 11/27/17 12:50 Dose: Not Given Olopatadine HCl (Patanol 0.1% Opht Soln) 1 drop OU DAILY [facility] Last Admin: 11/27/17 13:10 Dose: 1 drop Ondansetron HCl (Zofran Inj) 4 mg IVP Q6 PRN PRN Reason: Nausea/Vomiting Pantoprazole Sodium (Protonix Inj) 40 mg IVP DAILY [facility] Last Admin: 11/27/17 12:51 Dose: Not Given - Labs Labs: 11/28/17 04:55 11/28/17 04:55 PT 13.1 Seconds (9.8-13.1) 11/28/17 04:55 INR 1.2 (0.9-1.2) 11/28/17 04:55 APTT 26.5 Seconds (25.6-37.1) 11/20/17 20:00 - Constitutional Appears: appears chronically ill - Head Exam Head Exam: NORMAL INSPECTION, NORMOCEPHALIC - Eye Exam Additional comments: keeps eyes closed all the time - ENT Exam ENT Exam: Mucous Membranes Dry, Normal External Ear Exam - Neck Exam Neck Exam: Full ROM - Respiratory Exam Respiratory Exam: Rales, Coarse Rhonchi, NORMAL BREATHING PATTERN - Cardiovascular Exam Cardiovascular Exam: REGULAR RHYTHM, +S1, +S2 Additional comments: left Pacemaker - GI/Abdominal Exam GI & Abdominal Exam: Soft, Normal Bowel Sounds. absent: Tenderness - Extremities Exam Additional comments: chronic stasis skin changes - Neurological Exam Neurological Exam: Awake Additional comments: demented oriented to person moves both upper extremities, minimal movement both LE - Psychiatric Exam Psychiatric exam: Flat Affect - Skin Skin Exam: Dry, Normal Color, Warm Assessment and Plan - Assessment and Plan (Free Text) Assessment: 87 y/o male with multiple medical conditions including DM2, CAD, CHF , bed bound x 5 years , who was brought in for fever and cough. Cough started on 11/06 , and he has gone to [facility] ED where he was seen and dx'ed with bronchitis and given abx. He did not get better, so presented to [facility] again, and was again discharged without any new intervention. Today, per family, he developed fever and worsening congestion, though cough did not become productive. Per family, no n/v/d. Patient himself provides no history, all history is from family and chart. 1. Sepsis sec to Pneumonia likely Bacterial (POA) , suspected Aspiration PNA - on 2L NC saturating 98%, more awake today -Continue ceftriaxone/azithromycin IV, and IV Vanco - Pulmonary consulted- Dr Rae, discussed case -ID consulted -Duonebs q6 hours -Tylenol for fever - Mycoplasma Ag : neg , Urine Legionella : pending - Sputum c/s : Staph aureus and Yeast 2. Dysphagia - ? Aspiration - failed multiple swallow eval, Keep NPO, continue maintenance fluids - discussed PEG placement with family , they now agree to the procedure -GI consulted , Plan for PEG placement today - attempted NGT placement however unable, pt pulling out tube 3. 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 History of Arrhythmia s/p Pacemaker 6. Hypernatremia sec to Dehydration - changed IVF to D5 W with KCl 7. HTN - IV antihypertensive prn 8. Anemia likely chronic and dilutional from IVF will monitor no signs of active bleeding started on PPI DVT PPx Lovenox- hold today as pt is fo PEG
[2017-11-28] MEDS: Olopatadine 0.1% Opht SOLN OU SCH (08:51)
[2017-11-28] MEDS: Insulin Lispro (humaLOG) 100 Units/ml Inj SC SCH ×4 (08:53→22:00)
[2017-11-28] MEDS ORDERED: Potassium Phosphate 30 MMOLE in Sodium Chloride 0.9% 250 ML IV ONE (11:38)
[2017-11-28] MEDS ORDERED: Etomidate 20 mg/10ml Inj IV ONE (14:27)
[2017-11-28] MEDS ORDERED: Midazolam 2 MG/2 ML VIAL ONE (14:27)
[2017-11-28] MEDS ORDERED: Lactated Ringer's 500 ML IV ONE ×3 (14:42→14:45)
[2017-11-29] MEDS: Albuterol-Ipratrop 3 mg / 0.5 (3 ml) UD INH SCH ×4 (01:02→19:10)
[2017-11-29] MEDS: Azithromycin 500 MG in Sodium Chloride 0.9% 250 ML IVPB SCH (03:36)
[2017-11-29 05:40] LABS: HEMOGLOBIN 8.5 g/dL (12.0-18.0); MEAN CORPUSCULAR HEMOGLOBIN 31.3 pg (27.0-31.0); MEAN CORPUSCULAR HGB CONC 32.9 g/dL (33.0-37.0); RBC 2.73 Mil/uL (4.40-5.90); RED CELL DISTRIBUTION WIDTH 15.3 % (11.5-14.5); WHITE BLOOD COUNT 6.6 K/uL (4.8-10.8)
[2017-11-29 05:49] LABS: ALB/GLOB RATIO 0.8 (1.0-2.1); ALBUMIN 2.4 g/dL (3.5-5.0); ALT/SGPT 36 U/L (21-72); AST/SGOT 40 U/L (17-59); BLOOD UREA NITROGEN 10 mg/dl (9-20); GFR AFRICAN-AMERICAN > 60; GFR NON-AFRICAN AMERICAN > 60
[2017-11-29] MEDS: Potassium Chl 20mEq & D5W 1,000 ML IV SCH (06:18)
--- NOTE | 2017-11-29 07:30 | CP.PCM.PN ---
<Silvino Dow - Last Filed: 11/29/17 09:06> Subjective - Date & Time of Evaluation Date of Evaluation: 11/29/17 Time of Evaluation: 07:00 - Subjective Subjective: PGY5 GI Fellow Progress Note Patient seen and examined bedside this morning. Remains agitated, does not respond to any questions and moans with any interaction. Agitated at times overnight. 12 system ROS cannot be performed given altered mental status Objective - Vital Signs/Intake and Output Vital Signs (last 24 hours): Temp Pulse Resp BP Pulse Ox 98.5 F 82 18 152/64 H 100 11/29/17 04:57 11/29/17 04:57 11/29/17 04:57 11/29/17 04:57 11/29/17 04:57 - Medications Medications: Current Medications Acetaminophen (Tylenol 325mg Tab) 650 mg PEG Q6 PRN PRN Reason: Fever >100.4 F Albuterol/Ipratropium (Duoneb 3 Mg/0.5 Mg (3 Ml) Ud) 3 ml INH RQ6 [facility] Last Admin: 11/29/17 07:17 Dose: 3 ml Amlodipine Besylate (Norvasc) 2.5 mg PEG DAILY [facility] Last Admin: 11/28/17 19:51 Dose: 2.5 mg Atorvastatin Calcium (Lipitor) 20 mg PO HS [facility] Last Admin: 11/28/17 21:03 Dose: 20 mg Cilostazol (Pletal) 50 mg PO BID [facility] Last Admin: 11/23/17 19:30 Dose: Not Given Clopidogrel Bisulfate (Plavix) 75 mg PO DAILY [facility] Last Admin: 11/23/17 09:10 Dose: Not Given Cyanocobalamin (Vitamin B12 1000 Mcg/Ml Inj) 1,000 mcg IM DAILY [facility] Last Admin: 11/28/17 08:52 Dose: 1,000 mcg Hydralazine HCl (Apresoline) 10 mg IV Q6 PRN PRN Reason: Systolic Blood Pressure Last Admin: 11/26/17 08:09 Dose: 10 mg Ceftriaxone Sodium 1 gm/ (Sodium Chloride) 100 mls @ 100 mls/hr IVPB DAILY@ 2300 [facility] PRN Reason: Protocol Last Admin: 11/28/17 22:50 Dose: 100 mls/hr Azithromycin 500 mg/ Sodium (Chloride) 250 mls @ 250 mls/hr IVPB DAILY@0400 [facility] PRN Reason: Protocol Last Admin: 11/29/17 03:36 Dose: 250 mls/hr Potassium Chloride/Dextrose (Potassium Chl 20 Meq In D5w) 1,000 mls @ 80 mls/ hr IV .[id number] [facility] Stop: 11/29/17 07:34 Last Admin: 11/29/17 06:18 Dose: 80 mls/hr Vancomycin HCl 1 gm/ Sodium (Chloride) 250 mls @ 125 mls/hr IVPB DAILY [facility] PRN Reason: Protocol Last Admin: 11/28/17 08:55 Dose: 125 mls/hr Insulin Human Lispro (Humalog) 0 units SC ACHS [facility] PRN Reason: Protocol Last Admin: 11/28/17 22:00 Dose: Not Given Losartan Potassium (Cozaar) 50 mg PEG BID [facility] Olopatadine HCl (Patanol 0.1% Opht Soln) 1 drop OU DAILY [facility] Last Admin: 11/28/17 08:51 Dose: 1 drop Ondansetron HCl (Zofran Inj) 4 mg IVP Q6 PRN PRN Reason: Nausea/Vomiting Pantoprazole Sodium (Protonix Inj) 40 mg IVP DAILY [facility] Last Admin: 11/28/17 08:51 Dose: 40 mg - Labs Labs: 11/29/17 05:00 11/29/17 05:00 PT 13.1 Seconds (9.8-13.1) 11/28/17 04:55 INR 1.2 (0.9-1.2) 11/28/17 04:55 APTT 26.5 Seconds (25.6-37.1) 11/20/17 20:00 - Constitutional Appears: Non-toxic, Agitated - Eye Exam Eye Exam: PERRL - Respiratory Exam Respiratory Exam: Rales. absent: Clear to Ausculation Bilateral, Rhonchi, Wheezes - Cardiovascular Exam Cardiovascular Exam: RRR, +S1, +S2 - GI/Abdominal Exam GI & Abdominal Exam: Distended, Soft, Normal Bowel Sounds. absent: Firm, Guarding, Rigid, Tenderness, Organomegaly Additional comments: PEG adjusted to 3cm at skin - Extremities Exam Extremities Exam: absent: Normal Inspection Additional comments: 1+ B/L LE - Neurological Exam Neurological Exam: Altered, Awake - Psychiatric Exam Psychiatric exam: Agitated, Anxious - Skin Skin Exam: Dry, Warm Assessment and Plan - Assessment and Plan (Free Text) Assessment: Patient is an 87yo male with PMHx significant for dementia, CVA, COPD, DM, CAD, CHF who was admitted for URI/bronchitis. -Dysphagia s/p PEG insertion -Aspiration pneumonia -Failure to thrive Plan: -S/P PEG insertion -Adjusted PEG to 3cm from skin -Tube feeding can begin at noon -Continue with meds and water flushes for now -OK to resume antiplatelet/anticoagulation therapy <Jason Graves - Last Filed: 11/29/17 12:29> Objective - Vital Signs/Intake and Output Vital Signs (last 24 hours): Temp Pulse Resp BP Pulse Ox 97.7 F 73 18 131/55 L 96 11/29/17 11:57 11/29/17 11:57 11/29/17 11:57 11/29/17 11:57 11/29/17 11:57 - Medications Medications: Current Medications Acetaminophen (Tylenol 325mg Tab) 650 mg PEG Q6 PRN PRN Reason: Fever >100.4 F Albuterol/Ipratropium (Duoneb 3 Mg/0.5 Mg (3 Ml) Ud) 3 ml INH RQ6 [facility] Last Admin: 11/29/17 07:17 Dose: 3 ml Amlodipine Besylate (Norvasc) 2.5 mg PEG DAILY [facility] Last Admin: 11/29/17 09:35 Dose: 2.5 mg Atorvastatin Calcium (Lipitor) 20 mg PO HS [facility] Last Admin: 11/28/17 21:03 Dose: 20 mg Cilostazol (Pletal) 50 mg PO BID [facility] Last Admin: 11/23/17 19:30 Dose: Not Given Clopidogrel Bisulfate (Plavix) 75 mg PO DAILY [facility] Last Admin: 11/29/17 12:01 Dose: 75 mg Cyanocobalamin (Vitamin B12 1000 Mcg/Ml Inj) 1,000 mcg IM DAILY [facility] Last Admin: 11/29/17 11:33 Dose: 1,000 mcg Hydralazine HCl (Apresoline) 10 mg IV Q6 PRN PRN Reason: Systolic Blood Pressure Last Admin: 11/26/17 08:09 Dose: 10 mg Ceftriaxone Sodium 1 gm/ (Sodium Chloride) 100 mls @ 100 mls/hr IVPB DAILY@ 2300 [facility] PRN Reason: Protocol Last Admin: 11/28/17 22:50 Dose: 100 mls/hr Azithromycin 500 mg/ Sodium (Chloride) 250 mls @ 250 mls/hr IVPB DAILY@0400 [facility] PRN Reason: Protocol Last Admin: 11/29/17 03:36 Dose: 250 mls/hr Vancomycin HCl 1 gm/ Sodium (Chloride) 250 mls @ 125 mls/hr IVPB DAILY [facility] PRN Reason: Protocol Last Admin: 11/29/17 11:59 Dose: 125 mls/hr Insulin Human Lispro (Humalog) 0 units SC ACHS [facility] PRN Reason: Protocol Last Admin: 11/29/17 11:52 Dose: Not Given Losartan Potassium (Cozaar) 50 mg PEG BID [facility] Last Admin: 11/29/17 11:33 Dose: 50 mg Olopatadine HCl (Patanol 0.1% Opht Soln) 1 drop OU DAILY [facility] Last Admin: 11/29/17 11:33 Dose: 1 drop Ondansetron HCl (Zofran Inj) 4 mg IVP Q6 PRN PRN Reason: Nausea/Vomiting Pantoprazole Sodium (Protonix Inj) 40 mg IVP DAILY [facility] Last Admin: 11/29/17 11:33 Dose: 40 mg - Labs Labs: 11/29/17 05:00 11/29/17 05:00 PT 13.1 Seconds (9.8-13.1) 11/28/17 04:55 INR 1.2 (0.9-1.2) 11/28/17 04:55 APTT 26.5 Seconds (25.6-37.1) 11/20/17 20:00 Attending/Attestation - Attestation I have personally seen and examined this patient.: Yes I have fully participated in the care of the patient.: Yes I have reviewed all pertinent clinical information, including history, physical exam and plan: Yes Notes (Text): 11/29/17 12:27 Patient seen at bedside. This is a 87yo male with PMHx significant for dementia , CVA, COPD, DM, CAD, CHF who was admitted for URI/bronchitis and dysphagia s/p PEG insertion. PEG at 3 cm with no induration or erythema. start feeds at 20 cc/ hr and advance as tolerated. Aspiration precautions with local PEG care. Will sign off. Thank you for letting us participate in the care of your patient
[2017-11-29] MEDS: Insulin Lispro (humaLOG) 100 Units/ml Inj SC SCH ×5 (07:36→22:39)
[2017-11-29] MEDS: Cilostazol 50 mg Tab UD PO SCH ×2 (09:15→18:15)
[2017-11-29] MEDS ORDERED: Iron Sucrose 100 mg/5 ml Inj IVP ONE (11:05)
[2017-11-29] MEDS: Olopatadine 0.1% Opht SOLN OU SCH (11:33)
--- NOTE | 2017-11-29 15:15 | CP.PCM.PN ---
Subjective - Date & Time of Evaluation Date of Evaluation: 11/29/17 Time of Evaluation: 09:00 - Subjective Subjective: Pt had PEG placement yesterday PEG used for meds last night and tolerating initially placed wrist restraint bec of risk of pulling PEG however pt is calm - will d/c restraint Cough congestion improved Pt is afebrile Objective - Vital Signs/Intake and Output Vital Signs (last 24 hours): Temp Pulse Resp BP Pulse Ox 97.7 F 73 18 131/55 L 96 11/29/17 11:57 11/29/17 11:57 11/29/17 11:57 11/29/17 11:57 11/29/17 11:57 - Medications Medications: Current Medications Acetaminophen (Tylenol 325mg Tab) 650 mg PEG Q6 PRN PRN Reason: Fever >100.4 F Albuterol/Ipratropium (Duoneb 3 Mg/0.5 Mg (3 Ml) Ud) 3 ml INH RQ6 [facility] Last Admin: 11/29/17 13:16 Dose: 3 ml Amlodipine Besylate (Norvasc) 2.5 mg PEG DAILY [facility] Last Admin: 11/29/17 09:35 Dose: 2.5 mg Atorvastatin Calcium (Lipitor) 20 mg PO HS [facility] Last Admin: 11/28/17 21:03 Dose: 20 mg Cilostazol (Pletal) 50 mg PO BID [facility] Last Admin: 11/23/17 19:30 Dose: Not Given Clopidogrel Bisulfate (Plavix) 75 mg PO DAILY [facility] Last Admin: 11/29/17 12:01 Dose: 75 mg Cyanocobalamin (Vitamin B12 1000 Mcg/Ml Inj) 1,000 mcg IM DAILY [facility] Last Admin: 11/29/17 11:33 Dose: 1,000 mcg Hydralazine HCl (Apresoline) 10 mg IV Q6 PRN PRN Reason: Systolic Blood Pressure Last Admin: 11/26/17 08:09 Dose: 10 mg Ceftriaxone Sodium 1 gm/ (Sodium Chloride) 100 mls @ 100 mls/hr IVPB DAILY@ 2300 [facility] PRN Reason: Protocol Last Admin: 11/28/17 22:50 Dose: 100 mls/hr Azithromycin 500 mg/ Sodium (Chloride) 250 mls @ 250 mls/hr IVPB DAILY@0400 [facility] PRN Reason: Protocol Last Admin: 11/29/17 03:36 Dose: 250 mls/hr Vancomycin HCl 1 gm/ Sodium (Chloride) 250 mls @ 125 mls/hr IVPB DAILY [facility] PRN Reason: Protocol Last Admin: 11/29/17 11:59 Dose: 125 mls/hr Insulin Human Lispro (Humalog) 0 units SC ACHS [facility] PRN Reason: Protocol Last Admin: 11/29/17 11:52 Dose: Not Given Losartan Potassium (Cozaar) 50 mg PEG BID [facility] Last Admin: 11/29/17 11:33 Dose: 50 mg Olopatadine HCl (Patanol 0.1% Opht Soln) 1 drop OU DAILY [facility] Last Admin: 11/29/17 11:33 Dose: 1 drop Ondansetron HCl (Zofran Inj) 4 mg IVP Q6 PRN PRN Reason: Nausea/Vomiting Pantoprazole Sodium (Protonix Inj) 40 mg IVP DAILY [facility] Last Admin: 11/29/17 11:33 Dose: 40 mg - Labs Labs: 11/29/17 05:00 11/29/17 05:00 PT 13.1 Seconds (9.8-13.1) 11/28/17 04:55 INR 1.2 (0.9-1.2) 11/28/17 04:55 APTT 26.5 Seconds (25.6-37.1) 11/20/17 20:00 - Constitutional Appears: appears chronically ill - Head Exam Head Exam: NORMAL INSPECTION, NORMOCEPHALIC - Eye Exam Additional comments: keeps eyes closed all the time - ENT Exam ENT Exam: Mucous Membranes Dry, Normal External Ear Exam - Neck Exam Neck Exam: Full ROM - Respiratory Exam Respiratory Exam: Rales, Coarse Rhonchi, NORMAL BREATHING PATTERN - Cardiovascular Exam Cardiovascular Exam: REGULAR RHYTHM, +S1, +S2 Additional comments: left Pacemaker - GI/Abdominal Exam GI & Abdominal Exam: Soft, Normal Bowel Sounds. absent: Tenderness PEG in place - Extremities Exam Additional comments: chronic stasis skin changes - Neurological Exam Neurological Exam: Awake Additional comments: demented oriented to person moves both upper extremities, minimal movement both LE - Psychiatric Exam Psychiatric exam: Flat Affect - Skin Skin Exam: Dry, Normal Color, Warm Assessment and Plan - Assessment and Plan (Free Text) Assessment: 87 y/o male with multiple medical conditions including Dementia , DM2, CAD, CHF , bed bound x 5 years , who was brought in for fever and cough. Cough started on 11/06, and he has gone to [facility] ED where he was seen and dx' ed with bronchitis and given abx. He did not get better, so presented to [facility] again, and was again discharged without any new intervention. Per family, he developed fever and worsening congestion, though cough did not become productive. Per family, no n/v/d. Patient himself provides no history, all history is from family and chart. Pt started on IV Ceftriaxone and Azithro. Pulm and ID consulted. Pt's condition improved Filed swallow eval 1. Sepsis sec to Pneumonia likely Bacterial (POA) , suspected Aspiration PNA - improving and saturating well on RA, occ cough , no longer as congested -Continue ceftriaxone/azithromycin IV, and IV Vanco - Pulmonary consulted- Dr Rae -ID consulted -Duonebs q6 hours -Tylenol for fever - Mycoplasma Ag : neg - Sputum c/s : Staph aureus and Yeast 2. Dysphagia - ? Aspiration - failed multiple swallow eval, Keep NPO - PEG placed yesterday -start Tube feeding with Glucerna 1.2 today 3. DM2 -ACHS accucheck -SSI - restart Glipizide 4. Sacral Pressure DTI ( POA) chick sexer 5. History of Arrhythmia s/p Pacemaker 6. Hypernatremia sec to Dehydration - IVF to D5 W with KCl - Free water per PEG 7. HTN - restart Losartan and Norvasc 8. Anemia likely chronic and dilutional from IVF will monitor no signs of active bleeding started on PPI - Venofer IV given 9. Dementia ? Etiology prob vascular - cont Plavix and statin DVT PPx Lovenox
[2017-11-30] MEDS: Albuterol-Ipratrop 3 mg / 0.5 (3 ml) UD INH SCH ×3 (01:00→13:46)
[2017-11-30 05:55] LABS: BLOOD UREA NITROGEN 11 mg/dl (9-20); CALCIUM 7.9 mg/dL (8.4-10.2); GFR AFRICAN-AMERICAN > 60; GFR NON-AFRICAN AMERICAN > 60
[2017-11-30] MEDS ORDERED: Enoxaparin 40 mg Syringe SC SCH (09:00)
[2017-11-30] MEDS: Insulin Lispro (humaLOG) 100 Units/ml Inj SC SCH (09:09)
[2017-11-30] MEDS: Cilostazol 50 mg Tab UD PO SCH (09:09)
[2017-11-30] MEDS: Olopatadine 0.1% Opht SOLN OU SCH (09:10)
--- NOTE | 2017-11-30 11:57 | CP.PCM.PN ---
Subjective - Date & Time of Evaluation Date of Evaluation: 11/30/17 Time of Evaluation: 09:00 - Subjective Subjective: improving s/p PEG IV rx and wound care in progress less congested Objective - Vital Signs/Intake and Output Vital Signs (last 24 hours): Temp Pulse Resp BP Pulse Ox 97.7 F 75 18 131/73 100 11/30/17 08:03 11/30/17 09:09 11/30/17 08:03 11/30/17 09:09 11/30/17 08:03 - Medications Medications: Current Medications Acetaminophen (Tylenol 325mg Tab) 650 mg PEG Q6 PRN PRN Reason: Fever >100.4 F Albuterol/Ipratropium (Duoneb 3 Mg/0.5 Mg (3 Ml) Ud) 3 ml INH RQ6 [facility] Last Admin: 11/30/17 07:57 Dose: 3 ml Amlodipine Besylate (Norvasc) 2.5 mg PEG DAILY [facility] Last Admin: 11/30/17 09:09 Dose: 2.5 mg Atorvastatin Calcium (Lipitor) 20 mg PO HS [facility] Last Admin: 11/29/17 21:33 Dose: 20 mg Cilostazol (Pletal) 50 mg PO BID [facility] Last Admin: 11/30/17 09:09 Dose: 50 mg Clopidogrel Bisulfate (Plavix) 75 mg PO DAILY [facility] Last Admin: 11/30/17 09:10 Dose: 75 mg Cyanocobalamin (Vitamin B12 1000 Mcg/Ml Inj) 1,000 mcg IM DAILY [facility] Last Admin: 11/30/17 09:12 Dose: 1,000 mcg Enoxaparin Sodium (Lovenox) 40 mg SC DAILY [facility] PRN Reason: Protocol Last Admin: 11/30/17 09:08 Dose: 40 mg Glipizide (Glucotrol) 5 mg PO ACB [facility] Last Admin: 11/30/17 09:09 Dose: 5 mg Hydralazine HCl (Apresoline) 10 mg IV Q6 PRN PRN Reason: Systolic Blood Pressure Last Admin: 11/26/17 08:09 Dose: 10 mg Ceftriaxone Sodium 1 gm/ (Sodium Chloride) 100 mls @ 100 mls/hr IVPB DAILY@ 2300 [facility] PRN Reason: Protocol Last Admin: 11/29/17 22:36 Dose: 100 mls/hr Azithromycin 500 mg/ Sodium (Chloride) 250 mls @ 250 mls/hr IVPB DAILY@0400 [facility] PRN Reason: Protocol Last Admin: 11/29/17 03:36 Dose: 250 mls/hr Vancomycin HCl 1 gm/ Sodium (Chloride) 250 mls @ 125 mls/hr IVPB DAILY [facility] PRN Reason: Protocol Last Admin: 11/30/17 09:11 Dose: 125 mls/hr Insulin Human Lispro (Humalog) 0 units SC ACHS [facility] PRN Reason: Protocol Last Admin: 11/30/17 09:09 Dose: 1 u Losartan Potassium (Cozaar) 50 mg PEG BID [facility] Last Admin: 11/30/17 09:09 Dose: 50 mg Olopatadine HCl (Patanol 0.1% Opht Soln) 1 drop OU DAILY [facility] Last Admin: 11/30/17 09:10 Dose: 1 drop Ondansetron HCl (Zofran Inj) 4 mg IVP Q6 PRN PRN Reason: Nausea/Vomiting Pantoprazole Sodium (Protonix Inj) 40 mg IVP DAILY [facility] Last Admin: 11/30/17 09:11 Dose: 40 mg - Labs Labs: 11/29/17 05:00 11/30/17 04:20 PT 13.1 Seconds (9.8-13.1) 11/28/17 04:55 INR 1.2 (0.9-1.2) 11/28/17 04:55 APTT 26.5 Seconds (25.6-37.1) 11/20/17 20:00 - Constitutional Appears: Non-toxic, Confused, Cachectic, Chronically Ill - Head Exam Head Exam: NORMOCEPHALIC - Eye Exam Eye Exam: PERRL. absent: Scleral icterus - ENT Exam ENT Exam: Mucous Membranes Dry - Neck Exam Neck Exam: absent: Lymphadenopathy - Respiratory Exam Respiratory Exam: Decreased Breath Sounds - Cardiovascular Exam Cardiovascular Exam: REGULAR RHYTHM - GI/Abdominal Exam GI & Abdominal Exam: Distended, Soft - Rectal Exam Rectal Exam: Deferred - Exam Exam: NORMAL INSPECTION - Extremities Exam Extremities Exam: absent: Pedal Edema - Back Exam Back Exam: absent: CVA tenderness (L), CVA tenderness (R) - Neurological Exam Neurological Exam: Alert, Altered, Awake - Psychiatric Exam Psychiatric exam: Depressed - Skin Skin Exam: Dry Assessment and Plan (1) CAP (community acquired pneumonia) Status: Acute (2) DM2 (diabetes mellitus, type 2) Status: Acute (3) DVT prophylaxis Status: Acute (4) Pneumonia Status: Acute (5) Sepsis Status: Acute (6) Bronchitis Status: Acute (7) CAD (coronary artery disease) Status: Acute (8) Diabetes Status: Acute (9) Pacemaker Status: Acute (10) Weakness Status: Acute - Assessment and Plan (Free Text) Assessment: rx renewed
--- NOTE | 2017-11-30 14:35 | CP.PCM.DIS ---
Provider - Provider Date of Admission: 11/20/17 23:42 Attending physician: Robbi Novoa MD Consults: ID: Dr [email or web address] GI : Dr Graves Pulm: Dr Rae Time Spent in preparation of Discharge (in minutes): 35 Diagnosis - Discharge Diagnosis (1) CAP (community acquired pneumonia) Status: Acute (2) Sepsis Status: Acute (3) Aspiration pneumonia Status: Acute (4) DM2 (diabetes mellitus, type 2) Status: Chronic (5) HTN (hypertension) Status: Chronic (6) Dementia Status: Chronic Hospital Course - Lab Results Lab Results: Micro Results 11/20/17 20:00 Blood-Venous Blood Culture - Final NO GROWTH AFTER 5 DAYS 11/20/17 20:00 Blood-Venous Gram Stain - Final TEST NOT PERFORMED 11/20/17 20:00 Blood-Venous Blood Culture - Final NO GROWTH AFTER 5 DAYS 11/20/17 20:00 Blood-Venous Gram Stain - Final TEST NOT PERFORMED 11/21/17 06:00 Sputum Gram Stain - Final 11/21/17 06:00 Sputum Sputum Culture - Final Staphylococcus Aureus Yeast Species 11/21/17 08:30 Urine,Clean Catch Urine Culture - Final No Growth (<1,000 CFU/ML) Most Recent Lab Values WBC 6.6 K/uL (4.8-10.8) 11/29/17 05:00 RBC 2.73 Mil/uL (4.40-5.90) L 11/29/17 05:00 Hgb 8.5 g/dL (12.0-18.0) L 11/29/17 05:00 Hct 25.9 % (35.0-51.0) L 11/29/17 05:00 MCV 95.0 fl (80.0-94.0) H 11/29/17 05:00 MCH 31.3 pg (27.0-31.0) H 11/29/17 05:00 MCHC 32.9 g/dL (33.0-37.0) L 11/29/17 05:00 RDW 15.3 % (11.5-14.5) H 11/29/17 05:00 Plt Count 186 K/uL (130-400) 11/29/17 05:00 MPV 7.2 fl (7.2-11.7) 11/26/17 06:30 Neut % (Auto) 79.0 % (50.0-75.0) H 11/26/17 06:30 Lymph % (Auto) 6.8 % (20.0-40.0) L 11/26/17 06:30 [place] % (Auto) 8.9 % (0.0-10.0) 11/26/17 06:30 Eos % (Auto) 4.8 % (0.0-4.0) H 11/26/17 06:30 Baso % (Auto) 0.5 % (0.0-2.0) 11/26/17 06:30 Neut # (Auto) 5.2 K/uL (1.8-7.0) 11/26/17 06:30 Lymph # (Auto) 0.4 K/uL (1.0-4.3) L 11/26/17 06:30 [place] # (Auto) 0.6 K/uL (0.0-0.8) 11/26/17 06:30 Eos # (Auto) 0.3 K/uL (0.0-0.7) 11/26/17 06:30 Baso # (Auto) 0.0 K/uL (0.0-0.2) 11/26/17 06:30 Neutrophils % (Manual) 87 % (42-75) H 11/24/17 05:30 Lymphocytes % (Manual) 6 % (20-50) L 11/24/17 05:30 Monocytes % (Manual) 6 % (0-10) 11/24/17 05:30 Eosinophils % (Manual) 1 % (0-7) 11/20/17 20:00 Myelocytes % 1 % (0-0) H 11/24/17 05:30 Toxic Granulation Present 11/24/17 05:30 Platelet Estimate Normal (NORMAL) 11/24/17 05:30 Polychromasia Slight 11/24/17 05:30 Hypochromasia (manual) Slight 11/24/17 05:30 Anisocytosis (manual) Slight 11/24/17 05:30 Macrocytosis (manual) Slight 11/20/17 20:00 Geovanny Cells Marked 11/24/17 05:30 Schistocytes Moderate 11/24/17 05:30 PT 13.1 Seconds (9.8-13.1) 11/28/17 04:55 INR 1.2 (0.9-1.2) 11/28/17 04:55 APTT 26.5 Seconds (25.6-37.1) 11/20/17 20:00 pCO2 36 mm/Hg (35-45) 11/25/17 09:16 pO2 102 mm/Hg (80-100) H 11/25/17 09:16 HCO3 24.2 mmol/L (21-28) 11/25/17 09:16 ABG pH 7.42 (7.35-7.45) 11/25/17 09:16 ABG Total CO2 24.5 mmol/L (22-28) 11/25/17 09:16 ABG O2 Saturation 100.0 % (95-98) H 11/25/17 09:16 ABG O2 Content 12.3 ML/dL (15-23) L 11/25/17 09:16 ABG Base Excess -0.9 mmol/L (-2.0-3.0) 11/25/17 09:16 ABG Hemoglobin 8.9 g/dL (11.7-17.4) L 11/25/17 09:16 ABG Carboxyhemoglobin 1.5 % (0.5-1.5) 11/25/17 09:16 POC ABG HHb (Measured) 0.0 % (0.0-5.0) 11/25/17 09:16 ABG Methemoglobin 1.2 % (0.0-3.0) 11/25/17 09:16 ABG O2 Capacity 12.3 mL/dL (16-24) L 11/25/17 09:16 Chung Test Yes 11/25/17 09:16 VBG pH 7.36 (7.32-7.43) 11/20/17 20:09 VBG pCO2 50 mmHg (40-60) 11/20/17 20:09 VBG HCO3 24.7 mmol/L 11/20/17 20:09 VBG Total CO2 29.7 mmol/L (22-28) H 11/20/17 20:09 VBG O2 Sat (Calc) 20.9 % (40-65) L 11/20/17 20:09 VBG Base Excess 1.9 mmol/L (0.0-2.0) 04/22/18 20:09 VBG Potassium 4.8 mmol/L (3.6-5.2) 11/20/17 20:09 A-a O2 Difference 81.0 mm/Hg 11/25/17 09:16 Hgb O2 Saturation 97.2 % (95.0-98.0) 11/25/17 09:16 Sodium 142.0 mmol/L (132-148) 11/20/17 20:09 Chloride 106.0 mmol/L (98-107) 11/20/17 20:09 Glucose 238 mg/dL (75-110) H 11/20/17 20:09 Lactate 1.9 mmol/L (0.7-2.1) 11/20/17 20:09 Liter Flow 3 11/25/17 09:16 Vent Mode Nc 11/25/17 09:16 FiO2 32.0 % 11/25/17 09:16 Sodium 146 mmol/l (132-148) 11/30/17 04:20 Potassium 3.9 MMOL/L (3.6-5.0) 11/30/17 04:20 Chloride 111 mmol/L (98-107) H 11/30/17 04:20 Carbon Dioxide 26 mmol/L (22-30) 11/30/17 04:20 Anion Gap 13 (10-20) 11/30/17 04:20 BUN 11 mg/dl (9-20) 11/30/17 04:20 Creatinine 1.1 mg/dl (0.8-1.5) 11/30/17 04:20 Est GFR ( Amer) > 60 11/30/17 04:20 Est GFR (Non-Af Amer) > 60 11/30/17 04:20 POC Glucose (mg/dL) 164 mg/dL (65-110) H 11/30/17 11:18 Random Glucose 173 mg/dL (75-110) H 11/30/17 04:20 Calcium 7.9 mg/dL (8.4-10.2) L 11/30/17 04:20 Phosphorus 2.8 mg/dl (2.5-4.5) 11/29/17 05:00 Magnesium 2.0 MG/DL (1.6-2.3) 11/29/17 05:00 Iron 22 ug/dL (49-181) L 11/24/17 06:00 Ferritin 97.1 ng/Ml (17.9-464) 11/24/17 06:00 Total Bilirubin 0.3 mg/dl (0.2-1.3) 11/29/17 05:00 AST 40 U/L (17-59) 11/29/17 05:00 ALT 36 U/L (21-72) 11/29/17 05:00 Alkaline Phosphatase 64 U/L (38-126) 11/29/17 05:00 Troponin I 0.0460 ng/mL (0.00-0.120) 11/20/17 20:00 NT-Pro-B Natriuret Pep 2630 pg/ml (0-900) H 11/20/17 20:00 Total Protein 5.2 G/DL (6.3-8.2) L 11/29/17 05:00 Albumin 2.4 g/dL (3.5-5.0) L 11/29/17 05:00 Globulin 2.9 gm/dL (2.2-3.9) 11/29/17 05:00 Albumin/Globulin Ratio 0.8 (1.0-2.1) L 11/29/17 05:00 Vitamin B12 259 pg/mL (239-931) 11/24/17 06:00 Venous Blood Potassium 4.8 mmol/L (3.6-5.2) 11/20/17 20:09 Urine Color Yellow (YELLOW) 11/21/17 08:30 Urine Clarity Cloudy (Clear) 11/21/17 08:30 Urine pH 5.0 (5.0-8.0) 11/21/17 08:[address] 1.055 (1.003-1.030) H 11/21/17 08:30 Urine Protein 100 mg/dL (NEGATIVE) 11/21/17 08:30 Urine Glucose (UA) Neg mg/dL (Normal) 11/21/17 08:30 Urine Ketones 20 mg/dL (NEGATIVE) 11/21/17 08:30 Urine Blood Negative (NEGATIVE) 11/21/17 08:30 Urine Nitrate Negative (NEGATIVE) 11/21/17 08:30 Urine Bilirubin Negative (NEGATIVE) 11/21/17 08:30 Urine Urobilinogen 2.0 mg/dL (0.2-1.0) 11/21/17 08:30 Ur Leukocyte Esterase Neg Sharlene/uL (Negative) 11/21/17 08:30 Urine RBC (Auto) 3 /hpf (0-3) 11/21/17 08:30 Urine Microscopic WBC 3 /hpf (0-5) 11/21/17 08:30 Ur Squamous Epith Cells 3 /hpf (0-5) 11/21/17 08:30 Urine Bacteria Rare (<OCC) 11/21/17 08:30 Vancomycin Trough 20.6 ug/mL (5.0-10.0) H 11/25/17 06:30 Influenza Typ A,B (EIA) Negative for flu a/b (NEGATIVE) 11/20/17 20:20 Mycoplasma pneumon IgG 1.07 (<=0.90) H 11/24/17 06:00 Mycoplasma pneumon IgM 235 U/mL (<770) 11/24/17 06:00 Blood Type A POSITIVE 11/20/17 20:00 Antibody Screen Negative 11/20/17 20:00 BBK History Checked No verified bt 11/20/17 20:00 - Hospital Course Hospital Course: 87 y/o male with multiple medical conditions including Dementia , DM2, CAD, CHF , bed bound x 5 years , who was brought in for fever and cough. Cough started on 11/06, and he has gone to [facility] ED where he was seen and dx' ed with bronchitis and given abx. He did not get better, so presented to to our ED. Per family, he developed fever and worsening congestion , no n/v/d. Pt was started on IV Ceftriaxone and Azithromycin the IV vanco was added. Also received Duoneb treatments. Pulm and ID consulted. Patient failed multiple swallow evaluation. GI consulted for PEG placement. Pt 's condition improved. Tolerated tube feeding. D/c pt to [facility] . 1. Sepsis sec to Pneumonia likely Bacterial (POA) , suspected Aspiration PNA - improving and saturating well on RA, occ cough , no longer as congested -Received IV ceftriaxone/azithromycin and Vanco - Pulmonary consulted- Dr Rae -ID consulted -Duonebs q6 hours -Tylenol for fever - Mycoplasma Ag : neg - Sputum c/s : Staph aureus and Yeast - cont IV abx x 3 more days in the NH 2. Dysphagia, with suspected aspiration - failed multiple swallow eval, Keep NPO - PEG placed -started Tube feeding with Glucerna 1.2 - tolerating diet 3. DM2 -ACHS accucheck -SSI - restart Glipizide 4. 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 History of Arrhythmia s/p Pacemaker 6. Hypernatremia sec to Dehydration - IVF to D5 W with KCl - Free water per PEG 7. HTN - restart Losartan and Norvasc 8. Anemia likely chronic and dilutional from IVF no signs of active bleeding started on PPI - Venofer IV given 9. Dementia ? Etiology prob vascular - cont Plavix and statin DVT PPx Lovenox Discharge Exam - Head Exam Head Exam: NORMAL INSPECTION, NORMOCEPHALIC - Eye Exam Eye Exam: Normal appearance Pupil Exam: NORMAL ACCOMODATION - ENT Exam ENT Exam: Mucous Membranes Dry, Normal External Ear Exam - Neck Exam Neck exam: Full Rom - Respiratory Exam Respiratory Exam: NORMAL BREATHING PATTERN. absent: Respiratory Distress - Cardiovascular Exam Cardiovascular Exam: REGULAR RHYTHM, +S1, +S2 Additional comments: left Pacemaker - GI/Abdominal Exam GI & Abdominal Exam: Normal Bowel Sounds, Soft. absent: Tenderness Additional comments: + PEG - Extremities Exam Extremities exam: normal capillary refill, pedal edema, pedal pulses present Additional comments: arm edema - Back Exam Back exam: absent: CVA tenderness (L), CVA tenderness (R) - Neurological Exam Neurological exam: Alert, Reflexes Normal Additional comments: oriented to person - Psychiatric Exam Psychiatric exam: Flat Affect - Skin Skin Exam: Normal Color, Pallor, Warm Discharge Plan - Discharge Medications Prescriptions: Azithromycin 500MG/NS 250ml [Zithromax 500mg in NS] 500 mg IVPB DAILY 3 Days #3 bag cefTRIAXone 1 gm [Rocephin 1 gram IVPB] 1 gm IVPB DAILY 3 Days #3 bag - Follow Up Plan Condition: IMPROVED Disposition: TRANSF TO SNF Instructions: Pneumonia, Adult (DC) Additional Instructions: d/c pt to [facility] continue Tube feeding 2 cans q6, 100ml Free water q 8 cont IV antibiotics x 3 more days Referrals: Jason Graves MD [Medical Doctor] - Nilay Jaquez I [Family Provider] -
[2017-11-30 16:22] VITALS: BP 119/58; PULSE 88; RESP 20; TEMP 98; O2SAT 100
--- NOTE | 2017-12-01 09:07 | PQF CHF ---
This form is a permanent part of the medical record Dr. Denise Power: Could you please clarify the type of CHF. Present on admission. Clarification of your documentation is requested to better reflect the severity of illness and intensity of treatment of your patient. Indicators present [] Diagnosis of CHF and/or history of CHF [] BNP > 200 [] Imaging Finding of Pulmonary Edema /Pleural Effusions [] Fluid/Volume Overload [] Pitting edema [] Ejection Fraction < 40% (Indicative of Systolic Heart Failure) [] Ejection Fraction > 40% (Indicative of Diastolic Heart Failure) [] Dyspnea / Orthopenea / Paroxysmal Nocturnal Dyspnea [] Other: Location in the medical record that reflects the above clinical findings: [] Treatment Provided: [] PHYSICIAN'S RESPONSE History of CHF, chronic , prob sec to HTN, unknown type , needs further work up Based on your medical judgment of the clinical indicators outlined above, are you treating this patient for a known or suspected: [] Acute CHF [] Systolic [] Diastolic [] Combined [] Chronic CHF [] Systolic [] Diastolic [] Combined [] Acute on Chronic CHF []Systolic [] Diastolic [] Combined [] CHF due hypertension [] Acute systolic []Chronic systolic [] Acute/ chronic systolic [] Other, please indicate: [] [] If Unable to Determine, please check the box, sign and date. Present On Admission (POA) Indicator: [] Present at the time of admission [] Not present at the time of admission [] Clinically Undetermined In responding to this query, please exercise your independent professional judgment. The fact that a question is asked does not imply that any particular answer is desired or expected. Thank you for your clarification on this documentation. If you have any questions please call:[ ] * Thank you, * Sho Estrada [ [phone] insurance agency manager [employer]
== END 2017-11-30 17:15 | DRG 177 ==
LOC: H.ER 19:24 → H.ERHOLD 23:42 → H.TEL 11-21 03:03
PROVIDERS: ADMIT Internal Medicine; ATTEND Internal Medicine
PROC: 0DH63UZ Insertion of Feeding Device into Stomach, Percutaneous Approach (ICD-10-PCS; principal; 2017-11-28 13:30)
DX: J69.0 Pneumonitis due to inhalation of food and vomit (principal); A41.9 Sepsis, unspecified organism; E46 Unspecified protein-calorie malnutrition; E87.0 Hyperosmolality and hypernatremia; J44.0 Chronic obstructive pulmonary disease with (acute) lower respiratory infection; L97.929 Non-pressure chronic ulcer of unspecified part of left lower leg with unspecified severity; L97.919 Non-pressure chronic ulcer of unspecified part of right lower leg with unspecified severity; J15.9 Unspecified bacterial pneumonia; D64.9 Anemia, unspecified; E11.9 Type 2 diabetes mellitus without complications; L89.150 Pressure ulcer of sacral region, unstageable; E78.00 Pure hypercholesterolemia, unspecified; E86.0 Dehydration; F03.90 Unspecified dementia, unspecified severity, without behavioral disturbance, psychotic disturbance, mood disturbance, and anxiety; Z87.891 Personal history of nicotine dependence; I11.0 Hypertensive heart disease with heart failure; I25.10 Atherosclerotic heart disease of native coronary artery without angina pectoris; I50.9 Heart failure, unspecified; R13.10 Dysphagia, unspecified; R62.7 Adult failure to thrive; Z74.01 Bed confinement status; Z78.1 Physical restraint status; Z79.02 Long term (current) use of antithrombotics/antiplatelets; Z86.73 Personal history of transient ischemic attack (TIA), and cerebral infarction without residual deficits; Z93.1 Gastrostomy status; Z95.0 Presence of cardiac pacemaker; F32.9 Major depressive disorder, single episode, unspecified; K59.00 Constipation, unspecified; Z79.84 Long term (current) use of oral hypoglycemic drugs; Z79.899 Other long term (current) drug therapy; K20.9 Esophagitis, unspecified; K29.70 Gastritis, unspecified, without bleeding